=== PATIENT | female | born 1935 | race Caucasian/White ===

== ENCOUNTER 2016-12-03 22:10 | Inpatient (IN) | payer MEDICARE ==
[2016-12-03] MEDS ORDERED: IPRATROPIUM/ALBUTEROL 0.5-2.5 MG/3 ML AMPUL NEB ONE (22:58)
--- NOTE | 2016-12-03 22:58 | ER Document Report ---
ED Respiratory Problem - General Stated Complaint: DIFFICULTY BREATHING Time seen by provider: 22:58 Mode of Arrival: Stretcher Information source: Patient TRAVEL OUTSIDE OF THE [place] IN LAST 30 DAYS: No - HPI Patient complains to provider of: Chest pain, Short of breath Onset: Other - 2-3 days Duration: Worse/persistent Quality of pain: Achy Severity: Mild Pain Level: 2 Short of Breath: Mild Chest pain/discomfort: Tightness Cough: Productive Sputum amount: Small Sputum consistency: Mucoid Associated symptoms: Chest pain/discomfort, Cough, Extertional dyspnea Similar symptoms previously: Yes Recently seen / treated by doctor: No Notes: Patient is an 81-year-old female presenting to the emergency room complaining of difficulty breathing with dyspnea on exertion, productive cough and chest pain that's been going on for the past 2-3 days, she denies any nausea or vomiting, she reports a subjective fever - Related Data Allergies/Adverse Reactions: codeine [Codeine] Allergy (Mild, Verified 09/19/15 07:41) unknown aspirin [Aspirin] Allergy (Verified 09/19/15 07:41) Past Medical History - General Information source: Patient - Social History Smoking Status: Unknown if Ever Smoked Family History: Reviewed & Not Pertinent - Past Medical History Cardiac Medical History: Reports: Hx Heart Attack - 2yrs ago, Hx Hypercholesterolemia, Hx Hypertension - MEDICATION Denies: Hx Coronary Artery Disease Pulmonary Medical History: Reports: Hx Bronchitis Denies: Hx Asthma, Hx COPD, Hx Pneumonia Neurological Medical History: Reports: Hx Cerebrovascular Accident - 2yrs ago . Denies: Hx Seizures Endocrine Medical History: Reports: Hx Diabetes Mellitus Type 2 GI Medical History: Denies: Hx Hepatitis, Hx Hiatal Hernia, Hx Ulcer Musculoskeltal Medical History: Denies Hx Arthritis Psychiatric Medical History: Reports: Hx Depression Infectious Medical History: Denies: Hx Hepatitis Past Surgical History: Reports: Hx Hysterectomy. Denies: Hx Mastectomy, Hx Open Heart Surgery, Hx Pacemaker - Immunizations Hx Diphtheria, Pertussis, Tetanus Vaccination: Yes Hx Pneumococcal Vaccination: 10/22/13 Review of Systems - Review of Systems Constitutional: No symptoms reported EENT: No symptoms reported Cardiovascular: Chest pain Respiratory: Cough, Short of breath Gastrointestinal: No symptoms reported Genitourinary: No symptoms reported Female Genitourinary: No symptoms reported Musculoskeletal: No symptoms reported Skin: No symptoms reported Hematologic/Lymphatic: No symptoms reported Neurological/Psychological: No symptoms reported -: Yes All other systems reviewed and negative Physical Exam - Vital signs Vitals: Temp Resp Pulse Ox 99.3 F 27 H 93 12/03/16 22:28 12/03/16 22:28 12/03/16 22:28 Interpretation: Normal - General General appearance: Alert In distress: None - HEENT Head: Normocephalic, Atraumatic Eyes: Normal Conjunctiva: Normal Extraocular movements intact: Yes Eyelashes: Normal Pupils: PERRL - Respiratory Respiratory status: No respiratory distress Chest status: Nontender Breath sounds: Nonproductive cough Chest palpation: Normal - Cardiovascular Rhythm: Irregularly irregular Heart sounds: Normal auscultation Murmur: No - Abdominal Inspection: Normal Distension: No distension Bowel sounds: Normal Tenderness: Nontender Organomegaly: No organomegaly - Back Back: Normal, Nontender - Extremities General upper extremity: Normal inspection, Nontender, Normal color, Normal ROM , Normal temperature General lower extremity: Normal inspection, Nontender, Normal color, Normal ROM , Normal temperature, Normal weight bearing. No: Casandra's sign - Neurological Neuro grossly intact: Yes Cognition: Normal Orientation: AAOx4 Woodruff Coma Scale Eye Opening: Spontaneous Woodruff Coma Scale Verbal: Oriented Tony Coma Scale Motor: Obeys Commands Woodruff Coma Scale Total: 15 Speech: Normal - Psychological Associated symptoms: Normal affect, Normal mood - Skin Skin Temperature: Warm Skin Moisture: Dry Skin Color: Normal Course - Re-evaluation Re-evalutation: 12/04/16 04:06 Patient resting comfortably with stable vital signs, initial workup without acute findings, patient was discussed with primary care provider who agrees to admit as observation for further evaluation and treatment - Vital Signs Vital signs: Temp Pulse Resp BP Pulse Ox 99.3 F 22 H 169/71 H 94 12/03/16 22:28 12/04/16 02:01 12/04/16 02:01 12/04/16 02:01 - Laboratory Result Diagrams: 12/04/16 01:30 12/04/16 01:30 Laboratory results interpreted by me: 12/04/16 12/04/16 12/04/16 00:25 01:30 01:30 Hgb 11.2 L Hct 33.7 L MCH 26.7 L RDW 14.5 H Seg Neutrophils % 82.8 H Lymphocytes % 8.2 L Sodium 132.2 L Chloride 92 L Carbon Dioxide 34 H BUN 21 H Glucose 120 H NT-Pro-B Natriuret Pep Albumin 3.3 L Urine Protein >=500 H Urine Blood MODERATE H 12/04/16 01:30 Hgb Hct MCH RDW Seg Neutrophils % Lymphocytes % Sodium Chloride Carbon Dioxide BUN Glucose NT-Pro-B Natriuret Pep 1770 H Albumin Urine Protein Urine Blood - Diagnostic Test Radiology reviewed: Image reviewed, Reports reviewed - EKG Interpretation by Me Rate: Normal Rhythm: A.Fib - Transfer of Care Care transferred to following provider: Dr. Carrasquillo Discharge - Discharge Clinical Impression: Dyspnea on exertion Chest pain Qualifiers: Chest pain type: unspecified Qualified Code(s): R07.9 - Chest pain, unspecified Condition: Stable Disposition: ADMITTED OBSERVATION Admitting Provider: Arya Unit Admitted: Telemetry Referrals: JEANNETTE CARRASQUILLO MD [Primary Care Provider] - Follow up as needed
[2016-12-04 00:45] LABS: BILIRUBIN,URINE NEGATIVE (NEGATIVE); GLUCOSE, URINE NEGATIVE (NEGATIVE); KETONES,URINE NEGATIVE (NEGATIVE); LEUKOCYTE ESTERASE,URINE NEGATIVE (NEGATIVE); NITRITE,URINE NEGATIVE (NEGATIVE); PROTEIN,URINE >=500 mg/dL (NEGATIVE); UROBILINOGEN,URINE NEGATIVE mg/dL (<2.0)
[2016-12-04 00:46] LABS: APPEARANCE,URINE HAZY
[2016-12-04 00:47] LABS: URINE SPECIFIC GRAVITY 1.025
[2016-12-04 01:48] LABS: ABSOLUTE LYMPHOCYTES (AUTO) 0.6 10^3/uL (0.5-4.7); ABSOLUTE MONOCYTES (AUTO) 0.6 10^3/uL (0.1-1.4); BASOPHILS % (AUTO) 0.4 % (0-2); EOSINOPHILS % (AUTO) 0.1 % (0-6); HEMATOCRIT 33.7 % (36.0-47.0); HEMOGLOBIN 11.2 g/dL (12.0-15.5); HGB HCT DIFFERENCE -0.1; LYMPHOCYTES % (AUTO) 8.2 % (13-45); MEAN CORPUSCULAR HEMOGLOBIN 26.7 pg (27.0-33.4); MEAN CORPUSCULAR HGB CONC 33.2 g/dL (32.0-36.0); MEAN CORPUSCULAR VOLUME 80 fl (80-97); MONOCYTES % (AUTO) 8.5 % (3-13); RED CELL DISTRIBUTION WIDTH 14.5 % (11.5-14.0); SEGMENTED NEUTROPHILS % (AUTO) 82.8 % (42-78); WHITE BLOOD COUNT 7.2 10^3/uL (4.0-10.5)
[2016-12-04 02:09] LABS: ALANINE AMINOTRANSFERASE 23 U/L (9-52); ALBUMIN 3.3 g/dL (3.5-5.0); ALKALINE PHOSPHATASE 104 U/L (38-126); ANION GAP 6 (5-19); ASPARTATE AMINO TRANSFERASE 24 U/L (14-36); BILIRUBIN,TOTAL 0.7 mg/dL (0.2-1.3); BLOOD UREA NITROGEN 21 mg/dL (7-20); CALCIUM 8.7 mg/dL (8.4-10.2); CARBON DIOXIDE 34 mmol/L (22-30); CHLORIDE 92 mmol/L (98-107); CREATINE KINASE 93 U/L (30-135); CREATININE RESULT 0.83 mg/dL (0.52-1.25); GLUCOSE 120 mg/dL (75-110); POTASSIUM 3.8 mmol/L (3.6-5.0); SODIUM 132.2 mmol/L (137-145); TOTAL PROTEIN 6.6 g/dL (6.3-8.2)
[2016-12-04 02:21] LABS: CREATINE KINASE MB 1.93 ng/mL (<4.55)
[2016-12-04 02:34] LABS: TROPONIN I 0.054 ng/mL
--- NOTE | 2016-12-04 08:26 | EKG REPORT ---
SEVERITY:- ABNORMAL ECG - ATRIAL FIBRILLATION NONSPECIFIC T ABNORMALITIES, LATERAL LEADS : Confirmed by: Rajni Liu 04-Dec-2016 08:25:55
[2016-12-04] MEDS ORDERED: DEXTROSE 40% GEL 15 GM TUBE PO PRN (08:43)
[2016-12-04] MEDS ORDERED: DEXTROSE 50%-WATER SYRINGE 25 GM/50 ML DOSE IV PRN (08:43)
[2016-12-04] MEDS ORDERED: DEXTROSE 50%-WATER SYRINGE 12.5 GM/25 ML DOSE IV PRN (08:43)
[2016-12-04] MEDS ORDERED: DEXTROSE 40% GEL 15 GM TUBE X 2 PO PRN (08:43)
[2016-12-04] MEDS ORDERED: GLUCAGON,HUMAN RECOMB 1 MG INJ IM PRN (08:43)
--- NOTE | 2016-12-04 08:50 | Physician Advisory Note ---
Physician Advisor ProgressNote .: [facility] to the [facility], I have reviewed the medical record for this patient. Physician Advisor Statement: Possible documentation opportunities if attending agrees: 1. "CP/SOB, likely due to " 2. "hyponatremia, likely due to " 3. "anemia, chronic, likely due to " [nutritional Fe defic? chr blood loss Fe defic? B12 defic? folate defic? Anemia of Chronic Kidney Dz? ... ] Thanks for your help with documentation accuracy/specificity improvement! Rossi Montes De Oca MD [facility] Physician Advisor, Fellow of Hospital Medicine
[2016-12-04 08:53] LABS: CHOLESTEROL 107.04 mg/dL (0-200); CREATINE KINASE 117 U/L (30-135); Direct HDL 40 mg/dL (>40); TRIGLYCERIDES 77 mg/dL (<150)
[2016-12-04 09:04] LABS: DIRECT LDL 39 mg/dL (<100)
[2016-12-04 09:07] LABS: CREATINE KINASE MB 2.54 ng/mL (<4.55); TROPONIN I 0.056 ng/mL
[2016-12-04] MEDS ORDERED: RAMIPRIL 10 MG CAPSULE PO SCH (10:00)
[2016-12-04] MEDS ORDERED: BUSPIRONE HCL PO SCH (10:00)
[2016-12-04] MEDS ORDERED: (PENDING PHARMACY ID) (Insulin Glargine,Hum.Rec.Anlog [Toujeo Solostar] 40 UNIT) SQ SCH (10:00)
[2016-12-04] MEDS ORDERED: (PENDING PHARMACY ID) (Rivaroxaban [Xarelto] 1 TAB) PO SCH (10:00)
[2016-12-04] MEDS ORDERED: PAROXETINE HCL PO SCH (10:00)
[2016-12-04] MEDS ORDERED: MIRABEGRON PO SCH (10:00)
[2016-12-04] MEDS ORDERED: HYDROCHLOROTHIAZIDE 25 MG TABLET PO SCH (10:00)
[2016-12-04] MEDS ORDERED: DONEPEZIL HCL 5 MG TABLET PO SCH (10:00)
[2016-12-04] MEDS: DONEPEZIL HCL 5 MG TABLET PO SCH (10:27)
[2016-12-04] MEDS: METFORMIN HCL 850 MG TABLET PO SCH (10:27)
[2016-12-04] MEDS: PAROXETINE HCL 20 MG TABLET PO SCH (10:27)
[2016-12-04] MEDS: RAMIPRIL 10 MG CAPSULE PO SCH (10:29)
--- NOTE | 2016-12-04 13:48 | PDOC H&P ---
History of Present Illness Admission Date/PCP: 12/04/16 06:33 JEANNETTE NEIDA Patient complains of: Chest Pain, Shortness of breath, Cough, Fever History of Present Illness: RAJWINDER BOONE is a 81 year old female presented to ED via EMS service with complain of right sided chest pain. Patient described pain as intermittent sharp , lasted about 2-3 minutes per episode and not related to any particular event or rest. There is associated episodes of palpitation. No associated diaphoresis , nausea, or vomiting. Patient denied any significant relieving factor. There is reported chest congestion with minimally productive coughing and subjective fever over last 2-3 days. Her initial ED evaluation did revealed anemia, left shift in her differential cell count, Atrial fibrillation, elevated NT-ProBNP, indeterminate Troponin-I and electrolyte derangement. In view of her age, presentation and comorbidities she was advised hospitalization to observation bed for further evaluation and management. Past Medical History Cardiac Medical History: Reports: Atrial Fibrillation, Myocardial Infarction - 2yrs ago, Hyperlipidema, Hypertension - MEDICATION Denies: Coronary Artery Disease Pulmonary Medical History: Reports: Bronchitis Denies: Asthma, Chronic Obstructive Pulmonary Disease (COPD), Pneumonia Neurological Medical History: Denies: Seizures Endocrine Medical History: Reports: Diabetes Mellitus Type 2 GI Medical History: Denies: Hepatitis, Hiatal Hernia Musculoskeltal Medical History: Denies: Arthritis Psychiatric Medical History: Reports: Depression Hematology: Reports: Anemia Denies: None, Hemophilia, Sickle Cell Disease, Bleeding Tendencies, Heparin Induced Thrombocytopenia, Neutropenia, Other Past Surgical History Past Surgical History: Reports: Hysterectomy, Tonsillectomy Denies: Amputation, Mastectomy, Pacemaker Social History Smoking Status: Unknown if Ever Smoked Frequency of Alcohol Use: None Hx Recreational Drug Use: No Hx Prescription Drug Abuse: No - Advance Directive Resuscitation Status: Full Code Family History Family History: Reviewed & Not Pertinent Parental Family History Reviewed: Yes Children Family History Reviewed: Yes Sibling(s) Family History Reviewed.: Yes Medication/Allergy Home Medications: Simvastatin [Zocor 20 mg Tablet] 1 tab PO QHS 09/21/11 Hydrochlorothiazide 1 tab PO DAILY 04/21/13 Ramipril [Altace 10 mg Capsule] 1 cap PO DAILY 04/21/13 Donepezil HCl 1 tab PO DAILY 11/03/14 Alprazolam 1 tab PO BID PRN 11/29/15 Mirabegron [Myrbetriq] 1 tab PO DAILY 09/19/15 Buspirone HCl 1.5 tab PO TID 11/01/15 Insulin Glargine,Hum.rec.anlog [Elton Rodriguez] 40 unit SQ DAILY 11/01/15 Paroxetine HCl [Paxil] 2 tab PO DAILY 11/01/15 Metformin HCl [Metformin HCl] 1 tab PO DAILY 12/04/16 Rivaroxaban [Xarelto] 1 tab PO DAILY 12/04/16 Allergies/Adverse Reactions: codeine [Codeine] Allergy (Mild, Verified 12/04/16 04:13) unknown aspirin [Aspirin] Allergy (Verified 12/04/16 04:13) Review of Systems Constitutional: PRESENT: fatigue, fever(s), weakness. ABSENT: as per HPI, anorexia, chills, headache(s), night sweats, weight gain, weight loss, other Eyes: PRESENT: visual disturbances - long standing Ears: PRESENT: hearing changes - long standing Nose, Mouth, and Throat: ABSENT: as per HPI, headache(s), mouth pain, sore throat, vertigo, other Cardiovascular: PRESENT: chest pain. ABSENT: as per HPI, dyspnea on exertion, edema, orthropnea, palpitations, other Respiratory: PRESENT: cough, dyspnea, sputum - minimal with coughing. ABSENT: as per HPI, hemoptysis, other Gastrointestinal: ABSENT: as per HPI, abdominal pain, bloating, coffee ground emesis, constipation, diarrhea, dysphagia, heartburn, hematemesis, hematochezia , melena, nausea, vomiting, other Genitourinary: ABSENT: as per HPI, difficulty urinating, dysuria, hematuria, nocturia, other Musculoskeletal: PRESENT: deformity - due to arthritis Integumentary: ABSENT: as per HPI, diaphoresis, erythema, lesions, pruritus, rash, wounds, other Neurological: PRESENT: confusion, frequent falls, memory loss. ABSENT: as per HPI, abnormal gait, abnormal movements, abnormal speech, convulsions, dizziness , focal weakness, lack of coordination, numbness, paresthesias, restless legs, syncope, tingling, tremor(s), vertigo, weakness, other Psychiatric: ABSENT: as per HPI, anxiety, depression, hallucinations, homidical ideation, suicidal ideation, other Endocrine: PRESENT: flushing. ABSENT: as per HPI, cold intolerance, heat intolerance, menstrual abnormalities, polydipsia, polyphagia, polyuria, other Hematologic/Lymphatic: ABSENT: easy bleeding, easy bruising, lymphadenopathy Physical Exam Vital Signs: Temp Pulse Resp BP Pulse Ox 98.2 F 74 20 146/60 H 93 12/04/16 08:11 12/04/16 08:11 12/04/16 08:11 12/04/16 08:11 12/04/16 08:11 General appearance: PRESENT: no acute distress, cooperative, obese Head exam: PRESENT: atraumatic, normocephalic Eye exam: PRESENT: conjunctiva pink, EOMI, PERRLA. ABSENT: scleral icterus Ear exam: PRESENT: normal external ear exam Mouth exam: PRESENT: moist, tongue midline Throat exam: ABSENT: post pharyngeal erythema, tonsillar erythema, tonsillar exudate, tonsillogmegaly, other Neck exam: PRESENT: full ROM. ABSENT: carotid bruit, JVD, lymphadenopathy, thyromegaly Respiratory exam: PRESENT: decreased breath sounds - at lung bases Cardiovascular exam: PRESENT: irregular rhythm. ABSENT: bradycardia, clicks, diastolic murmur, gallop, RRR, rubs, +S1, +S2, systolic murmur, tachycardia, other Pulses: PRESENT: normal dorsalis pedis pul, +2 pedal pulses bilateral Vascular exam: PRESENT: normal capillary refill GI/Abdominal exam: PRESENT: normal bowel sounds, soft. ABSENT: distended, guarding, mass, organolmegaly, rebound, tenderness Extremities exam: PRESENT: full ROM, pedal edema - bilateral chronic stasis edema to above ankle level Musculoskeletal exam: PRESENT: deformity - due to multiple joints arthritis involvement Neurological exam: PRESENT: alert, awake, oriented to person, oriented to place , oriented to time, oriented to situation, CN II-XII grossly intact. ABSENT: motor sensory deficit Psychiatric exam: PRESENT: appropriate affect, normal mood. ABSENT: homicidal ideation, suicidal ideation Skin exam: PRESENT: dry, intact, warm. ABSENT: cyanosis, rash Results Laboratory Results: 12/04/16 08:27 Triglycerides 77 Cholesterol 107.04 LDL Cholesterol Direct 39 VLDL Cholesterol 15.0 HDL Cholesterol 40 12/04/16 12/04/16 08:27 08:27 Creatine Kinase 117 CK-MB (CK-2) 2.54 Troponin I 0.056 Impressions: Chest X-Ray 12/03/16 22:54 IMPRESSION: NO ACUTE RADIOGRAPHIC FINDING IN THE CHEST. Assessment & Plan - Diagnosis (1) Chest pain with high risk for cardiac etiology Is this a current diagnosis for this admission?: YesPlan: see admitting physician orders. (2) Chronic atrial fibrillation Is this a current diagnosis for this admission?: YesPlan: see admitting physician orders. (3) Acute bronchitis due to other specified organisms Is this a current diagnosis for this admission?: YesPlan: see admitting physician orders. (4) Electrolyte abnormality Is this a current diagnosis for this admission?: YesPlan: see admitting physician orders. (5) Anemia of chronic disease Is this a current diagnosis for this admission?: YesPlan: see admitting physician orders. (6) Diabetes mellitus type 2 in obese Is this a current diagnosis for this admission?: YesPlan: see admitting physician orders. (7) HTN (hypertension) Qualifiers: Hypertension type: essential hypertension Qualified Code(s): I10 - Essential (primary) hypertension Is this a current diagnosis for this admission?: YesPlan: see admitting physician orders. (8) HLD (hyperlipidemia) Qualifiers: Hyperlipidemia type: pure hypercholesterolemia Qualified Code(s): E78.00 - Pure hypercholesterolemia, unspecified; E78.0 - Pure hypercholesterolemia Is this a current diagnosis for this admission?: YesPlan: see admitting physician orders. (9) Old MD (myocardial infarction) Is this a current diagnosis for this admission?: YesPlan: see admitting physician orders. (10) Depression Qualifiers: Depression Type: major depressive disorder Active/Remission status: currently active Psychotic features: without psychotic features Is this a current diagnosis for this admission?: YesPlan: see admitting physician orders. - Time Time Spent: 50 to 70 Minutes Medications reviewed and adjusted accordingly: Yes Anticipated discharge: Home Within: Other - Inpatient Certification Based on my medical assessment, after consideration of the patient's comorbidities, presenting symptoms, or acuity I expect that the services needed warrant INPATIENT care.: Yes I certify that my determination is in accordance with my understanding of Medicare's requirements for reasonable and necessary INPATIENT services [42 CFR 412.3e].: Yes Medical Necessity: Need For IV Fluids, Need For Continuous Telemetry Monitoring , Need for IV Antibiotics, Risk of Diagnosis Which Will Require Inpatient Eval/ Care/Monitoring Post Hospital Care: D/C Ophthalmologist Retina Specialist Documentation - Plan Summary Plan Summary: see admitting physician orders.
[2016-12-04] MEDS ORDERED: CEFEPIME 1 GM/D5W RTU 1 GM/50 ML RTUPB IV ONE (14:30)
[2016-12-04] MEDS ORDERED: GUAIFENESIN 600 MG TABLET.SA PO ONE (15:00)
[2016-12-04] MEDS: BUSPIRONE HCL 10 MG TABLET PO SCH ×2 (16:09→21:58)
[2016-12-04] MEDS: RIVAROXABAN 10 MG TABLET PO SCH (16:15)
[2016-12-04 16:23] LABS: CREATINE KINASE 117 U/L (30-135)
[2016-12-04 16:37] LABS: CREATINE KINASE MB 2.64 ng/mL (<4.55); TROPONIN I 0.051 ng/mL
[2016-12-04] MEDS: SIMVASTATIN 10 MG TABLET PO SCH (21:58)
[2016-12-04] MEDS: GUAIFENESIN 600 MG TABLET.SA PO SCH (21:58)
[2016-12-04] MEDS: CEFEPIME 1 GM/D5W RTU 1 GM/50 ML RTUPB IV SCH (21:58)
[2016-12-04] MEDS ORDERED: SIMVASTATIN PO SCH (22:00)
[2016-12-04 22:26] LABS: CREATINE KINASE MB 3.06 ng/mL (<4.55); TROPONIN I 0.053 ng/mL
[2016-12-05] MEDS: BUSPIRONE HCL 10 MG TABLET PO SCH ×3 (05:44→22:35)
[2016-12-05 06:57] LABS: ABSOLUTE LYMPHOCYTES (AUTO) 0.7 10^3/uL (0.5-4.7); ABSOLUTE MONOCYTES (AUTO) 0.7 10^3/uL (0.1-1.4); ABSOLUTE NEUT (AUTO) 4.6 10^3/uL (1.7-8.2); BASOPHILS % (AUTO) 0.7 % (0-2); EOSINOPHILS % (AUTO) 0.3 % (0-6); HEMATOCRIT 34.3 % (36.0-47.0); HEMOGLOBIN 11.5 g/dL (12.0-15.5); HGB HCT DIFFERENCE 0.2; LYMPHOCYTES % (AUTO) 11.8 % (13-45); MEAN CORPUSCULAR HEMOGLOBIN 26.9 pg (27.0-33.4); MEAN CORPUSCULAR HGB CONC 33.6 g/dL (32.0-36.0); MEAN CORPUSCULAR VOLUME 80 fl (80-97); RED BLOOD COUNT 4.29 10^6/uL (3.72-5.28); RED CELL DISTRIBUTION WIDTH 14.3 % (11.5-14.0); SEGMENTED NEUTROPHILS % (AUTO) 76.2 % (42-78); WHITE BLOOD COUNT 6.1 10^3/uL (4.0-10.5)
[2016-12-05 07:11] LABS: ANION GAP 7 (5-19); BLOOD UREA NITROGEN 18 mg/dL (7-20); CALCIUM 8.9 mg/dL (8.4-10.2); CARBON DIOXIDE 33 mmol/L (22-30); CHLORIDE 91 mmol/L (98-107); CREATININE RESULT 0.71 mg/dL (0.52-1.25); GLUCOSE 85 mg/dL (75-110); POTASSIUM 3.8 mmol/L (3.6-5.0); SODIUM 131.1 mmol/L (137-145)
--- NOTE | 2016-12-05 07:31 | PDOC PROGRESS REPORT ---
Subjective Progress Note for:: 12/05/16 Subjective:: Patient denied chest pain presently. Improving breathing. Less coughing. No fever or chills. No nausea, vomiting, or abdominal pain. No diarrhea. Remain on IV cefepime coverage. Physical Exam Vital Signs: Temp Pulse Resp BP Pulse Ox 97.6 F 75 20 136/67 H 99 12/04/16 23:03 12/05/16 02:00 12/04/16 23:03 12/04/16 23:03 12/04/16 23:03 Intake & Output 12/04/16 12/05/16 12/06/16 06:59 06:59 06:59 Intake Total 1028 Output Total 300 Balance 728 General appearance: PRESENT: no acute distress, cooperative, obese Head exam: PRESENT: atraumatic, normocephalic Eye exam: PRESENT: conjunctiva pink, EOMI, PERRLA. ABSENT: scleral icterus Respiratory exam: ABSENT: accessory muscle use, chest wall tenderness, clear to auscultation merna, crackles, decreased breath sounds, prolonged expiratory phas, rales, retraction, rhonchi, stridor, symmetrical, tachypnea, unlabored, wheezes , other Cardiovascular exam: PRESENT: RRR. ABSENT: diastolic murmur, rubs, systolic murmur GI/Abdominal exam: PRESENT: normal bowel sounds, soft. 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 ABSENT: motor sensory deficit Psychiatric exam: PRESENT: appropriate affect, normal mood. ABSENT: homicidal ideation, suicidal ideation Skin exam: PRESENT: dry, intact, warm. ABSENT: cyanosis, rash Results Laboratory Results: 12/05/16 06:02 12/05/16 06:02 12/04/16 12/04/16 12/05/16 15:35 15:35 06:02 WBC 6.1 RBC 4.29 Hgb 11.5 L Hct 34.3 L MCV 80 MCH 26.9 L MCHC 33.6 RDW 14.3 H Plt Count 184 Seg Neutrophils % 76.2 Lymphocytes % 11.8 L Monocytes % 11.0 Eosinophils % 0.3 Basophils % 0.7 Absolute Neutrophils 4.6 Absolute Lymphocytes 0.7 Absolute Monocytes 0.7 Absolute Eosinophils 0.0 Absolute Basophils 0.0 Retic Count (auto) 1.19 Absolute Retic 0.048 Sodium Potassium Chloride Carbon Dioxide Anion Gap BUN Creatinine Est GFR ( Amer) Est GFR (Non-Af Amer) Glucose Calcium Iron 15 L TIBC 270 % Saturation 6 Ferritin 102.00 Vitamin B12 665.0 Folate 17.70 12/05/16 06:02 WBC RBC Hgb Hct MCV MCH MCHC RDW Plt Count Seg Neutrophils % Lymphocytes % Monocytes % Eosinophils % Basophils % Absolute Neutrophils Absolute Lymphocytes Absolute Monocytes Absolute Eosinophils Absolute Basophils Retic Count (auto) Absolute Retic Sodium 131.1 L Potassium 3.8 Chloride 91 L Carbon Dioxide 33 H Anion Gap 7 BUN 18 Creatinine 0.71 Est GFR ( Amer) > 60 Est GFR (Non-Af Amer) > 60 Glucose 85 Calcium 8.9 Iron TIBC % Saturation Ferritin Vitamin B12 Folate 12/04/16 12/04/16 12/04/16 15:35 15:35 21:45 Creatine Kinase 117 119 CK-MB (CK-2) 2.64 Troponin I 0.051 12/04/16 21:45 Creatine Kinase CK-MB (CK-2) 3.06 Troponin I 0.053 Impressions: Chest X-Ray 12/03/16 22:54 IMPRESSION: NO ACUTE RADIOGRAPHIC FINDING IN THE CHEST. Assessment & Plan - Diagnosis (1) Chest pain with high risk for cardiac etiology Is this a current diagnosis for this admission?: YesPlan: See attending physician orders. I will consider pharmacologic stress test evaluation before discharge. (2) Chronic atrial fibrillation Is this a current diagnosis for this admission?: YesPlan: See attending physician orders. (3) Acute bronchitis due to other specified organisms Is this a current diagnosis for this admission?: YesPlan: see attending physician orders. Continue IV Cefepime coverage. (4) Electrolyte abnormality Is this a current diagnosis for this admission?: Yes (5) Anemia of chronic disease Is this a current diagnosis for this admission?: Yes (6) Diabetes mellitus type 2 in obese Is this a current diagnosis for this admission?: YesPlan: see attending physician orders. (7) HTN (hypertension) Qualifiers: Hypertension type: essential hypertension Qualified Code(s): I10 - Essential (primary) hypertension Is this a current diagnosis for this admission?: YesPlan: see attending physician orders. (8) HLD (hyperlipidemia) Qualifiers: Hyperlipidemia type: pure hypercholesterolemia Qualified Code(s): E78.00 - Pure hypercholesterolemia, unspecified; E78.0 - Pure hypercholesterolemia Is this a current diagnosis for this admission?: YesPlan: see attending physician orders. (9) Old IN (myocardial infarction) Is this a current diagnosis for this admission?: YesPlan: see attending physician orders. Consider pharmacologic stress testing prior to discharge in view of her presenting symptoms, comorbidities and age. (10) Mixed anxiety and depressive disorder Is this a current diagnosis for this admission?: YesPlan: Maintain on current medication management. - Time Time Spent with patient: 25-34 minutes Medications reviewed and adjusted accordingly: Yes Anticipated discharge: Home with Homehealth Within: Other - Inpatient Certification Medical Necessity: Need For IV Fluids, Need For Continuous Telemetry Monitoring , Need for IV Antibiotics, Risk of Complication if Not Cared For in Hospital Post Hospital Care: D/C Ge[employer] Field Assistant Documentation - Plan Summary Plan Summary: see attending physician orders.
[2016-12-05] MEDS: CEFEPIME 1 GM/D5W RTU 1 GM/50 ML RTUPB IV SCH ×2 (09:05→22:35)
[2016-12-05] MEDS: DONEPEZIL HCL 5 MG TABLET PO SCH (09:06)
[2016-12-05] MEDS: RAMIPRIL 10 MG CAPSULE PO SCH (09:06)
[2016-12-05] MEDS: GUAIFENESIN 600 MG TABLET.SA PO SCH ×2 (09:07→22:35)
[2016-12-05] MEDS: PAROXETINE HCL 20 MG TABLET PO SCH (09:07)
[2016-12-05] MEDS: METFORMIN HCL 850 MG TABLET PO SCH (09:07)
[2016-12-05] MEDS ORDERED: NORMAL SALINE FOR INHALATION 5 ML VIAL.NEB ONE (09:47)
--- NOTE | 2016-12-05 10:40 | Physician Advisory Note ---
Physician Advisor ProgressNote .: Pursuant to the plan for [facility], I have reviewed the medical record for this patient. Physician Advisor Statement: Nice job documenting the "chronic Afib". Possible documentation opportunities if attending agrees: 1. Medical necessity: need to "paint the picture" for the non-MD loss prevention research engineer, in each chart, for each day. See add'l points to make in this case - under "Status " below. - "This pt doesn't use O2 at home but needing it here to keep sats >___%, ... " - this needs to be explicit. Otherwise, an loss prevention research engineer (who won't be spending time digging for supporting info) will see nl VS & "breathing improved", lung exam with no abnormal findings listed 2/14 AM, & say, well, pt doesn't need to still be in the hospital! - Potential supporting points are included under "Status" at end of PA notes, which carry MUCH more weight if attending documents them. - Documenting specific ways in which pt is not back to baseline is VERY helpful in supporting reasoning for keeping pt in hospital! - Unfortunately, including the generic phrases like "needs IVF & IV abx & tele " at end of notes is not sufficient - they are useful prompts for attending to document such info, but attending has to indicate how/why they apply to this particular pt for them to support Inpt status. Ex: "This pt needs IV abx with close monitoring for response because ___ ____" [High risk for further decompensation due to __? Failing outpt tx?, ...] "Strong risk for Acute Respiratory Failure developing given " [new acute hypoxemia? underlying lung dz?, ...] "Pt has underlying CAD so hypoxemia and tachycardia increase risks for developing AMI acutely..." 2. "CP, likely due to " ("acute ischemic heart dz"? "Ac bronchitis"?) - Need actual possible dx listed: "cardiac etiology" is not sufficient for coding. 3. "Hyponatremia, likely due to " ("Electrolyte derangement" isn't sufficiently specific to capture hyponatremia.) 4. "Anemia of chronic Fe deficiency, [nutritional? or chronic blood loss ?]" - if anemia of chronic dz as well, please document what the underlying causative dz is, if at all possible (CKD? Hypothyroidism? Specific hem-onc dx ? ...) As always, if concerned about any unstable VS or abnormal labs, please comment on them & note what doing about them, & please document each day the potential clinical problems you are concerned could occur if pt not kept in hospital for tx at this time. Discussion: 81yo female w/ chronic co-morbidities including Afib, CAD/CA, HTN, DM-2, depression, anemia - presented 12/03 to ED w/SOB, difficulty breathing, CP, subjective fevers, productive cough - &, per ED nurse, BLE ankle edema, inability to sleep flat in bed. (+) T98.2, HR74, R20, BP 146/60, sat 93% - & ED nurse documented "Pt denies wearing O2 at home & is requiring it in the ED. Pt is SOB on assessment & diaphoretic w/nasal flaring noted." (+)wheezes, coarseness, tachypnea in triage. WBC 7.2 with Lt shift. Hgb 11.2, Na 132.2, bicarb 34 (baseline 26-28 in Oct 2015), BUN 21, Cr 0.83, BNP 1770 (baseline was 1220 in Oct 2015), trop I 0.054 (was 0.018 in 2013). The AM of 12/04, FSBS only 68 AC bkft. Attending ordered O2, IV cefepime, sputum cx, expectorant q12h, anemia eval labs + hemoccult, cardiac enzymes, f/u labs. Status: This pt was initially brought in for Outpt Obs for CP/SOB/acute bronchitis/ hyponatremia/hypoxemia/indeterminate cardiac enzymes, elevated BNP suggestive of CHF yet elevated BUN/Cr ratio suggestive of intravascular volume depletion. However, this elderly pt was too sick to respond quickly to appropriate tx, still requiring O2 support 12/04 despite having no underlying lung dz, still has significant hyponatremia (being addressed by ), is at higher risk for acute cardiac decompensation given underlying DM, HTN, CAD, Afib, anemia, with superimposed hypoxemia & infxn, .... She had hypoglycemia, which is concerning in an elderly pt for risk for falls, & especially in setting of acute infxn. On 12/04 AM, decision appears appropriately made for Inpt status given ongoing acute need for O2 to keep sat low 90s, vitals instability including tachycardia to 101, tachypnea to 23, & BP as high as 203/94, evidence hypoglycemia, ..., pt needing continued inpatient hospital care medically reasonable & necessary to protect her health, safety, & medical condition. - O2 sat 93% on 3L O2 on 12/03 PM at 22:28, for a P/F ratio of 213, equivalent to a RA pO2 of <<50. - O2 sat 94% on 2L O2 on 12/04 AM at 04:55, for a P/F ratio of 261, equivalent to a RA pO2 of <56. - O2 sat 93% on 2L O2 on 12/04 AM at 08:11, for a P/F ratio of 243, equivalent to a RA pO2 of 51. On 12/04 at 22:00, pt still with wheezes & rhonchi per nursing note. On 12/05, Na still worse at 131.1, bicarb still not back to baseline, Fe 15, TIBC 270, B12/folate WNL, cardiac enzyme trends - tho' abnormal - were flat. Attending recommends stress test to better eval heart before d/c because , but pt not yet sufficiently stabilized for this based on . Thanks for your help with documentation accuracy/specificity improvement! Rossi Montes De Oca MD ON LICENSE OF [facility] Physician Advisor, Fellow of Hospital Medicine
[2016-12-05] MEDS: RIVAROXABAN 10 MG TABLET PO SCH (17:10)
[2016-12-05] MEDS: SIMVASTATIN 10 MG TABLET PO SCH (22:35)
[2016-12-06] MEDS: BUSPIRONE HCL 10 MG TABLET PO SCH ×3 (05:17→21:16)
--- NOTE | 2016-12-06 07:41 | PDOC PROGRESS REPORT ---
Subjective Progress Note for:: 12/06/16 Subjective:: No chest pain or difficulty with breathing. No fever or chills. Improved productive coughing. No nausea, vomiting, or abdominal pain. No diarrhea. Remain on IV cefepime coverage. Patient is currently not on IV fluid due to her presenting elevated NT-Pro BNP level, edema, and her elevated Troponin I level. Physical Exam Vital Signs: Temp Pulse Resp BP Pulse Ox 98.3 F 72 20 151/85 H 91 L 12/06/16 03:41 12/06/16 03:41 12/06/16 03:41 12/06/16 03:41 12/06/16 03:41 Intake & Output 12/05/16 12/06/16 12/07/16 06:59 06:59 06:59 Intake Total 1028 1560 Output Total 300 1800 Balance 728 -240 Weight 100.5 kg Physical Exam: General appearance: PRESENT: no acute distress, cooperative, obese Head exam: PRESENT: atraumatic, normocephalic Eye exam: PRESENT: conjunctiva pink, EOMI, PERRLA. ABSENT: scleral icterus Respiratory exam: ABSENT: accessory muscle use, chest wall tenderness, clear to auscultation merna, crackles, decreased breath sounds, prolonged expiratory phas, rales, retraction, rhonchi, stridor, symmetrical, tachypnea, unlabored, wheezes , other Cardiovascular exam: PRESENT: RRR. ABSENT: diastolic murmur, rubs, systolic murmur GI/Abdominal exam: PRESENT: normal bowel sounds, soft. 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 ABSENT: motor sensory deficit Psychiatric exam: PRESENT: appropriate affect, normal mood. ABSENT: homicidal ideation, suicidal ideation Skin exam: PRESENT: dry, intact, warm. ABSENT: cyanosis, rash Results Laboratory Results: 12/05/16 06:02 12/05/16 06:02 12/04/16 18:15 Sputum Gram Stain - Final 12/04/16 18:15 Sputum Sputum Culture - Final NORMAL OMKAR 02/12/04/16 12/04/16 15:35 15:35 21:45 Creatine Kinase 117 119 CK-MB (CK-2) 2.64 Troponin I 0.051 12/04/16 21:45 Creatine Kinase CK-MB (CK-2) 3.06 Troponin I 0.053 Impressions: Chest X-Ray 12/03/16 22:54 IMPRESSION: NO ACUTE RADIOGRAPHIC FINDING IN THE CHEST. Assessment & Plan - Diagnosis (1) Chest pain with high risk for cardiac etiology Is this a current diagnosis for this admission?: YesPlan: See attending physician orders. I will request for pharmacologic stress test evaluation. (2) Chronic atrial fibrillation Is this a current diagnosis for this admission?: YesPlan: See attending physician orders. Continue to hold IV fluid due to her presenting elevated NT-Pro BNP level, edema, and her elevated Troponin I level. (3) Acute bronchitis due to other specified organisms Is this a current diagnosis for this admission?: YesPlan: see attending physician orders. D/C IV Cefepime coverage. Start on Cefuroxime 500mg p.o bid. (4) Electrolyte abnormality Is this a current diagnosis for this admission?: YesPlan: see admitting physician orders. Obtain BMP. (5) Anemia of chronic disease Is this a current diagnosis for this admission?: YesPlan: see admitting physician orders. Follow up on request for stool guaiac test. (6) Diabetes mellitus type 2 in obese Is this a current diagnosis for this admission?: YesPlan: see attending physician orders. (7) HTN (hypertension) Qualifiers: Hypertension type: essential hypertension Qualified Code(s): I10 - Essential (primary) hypertension Is this a current diagnosis for this admission?: YesPlan: see attending physician orders. (8) HLD (hyperlipidemia) Qualifiers: Hyperlipidemia type: pure hypercholesterolemia Qualified Code(s): E78.00 - Pure hypercholesterolemia, unspecified; E78.0 - Pure hypercholesterolemia Is this a current diagnosis for this admission?: YesPlan: see attending physician orders. (9) Old OK (myocardial infarction) Is this a current diagnosis for this admission?: YesPlan: see attending physician orders. I will request for pharmacologic stress testing today in view of her presenting symptoms, comorbidities and age. (10) Mixed anxiety and depressive disorder Is this a current diagnosis for this admission?: YesPlan: Maintain on current medication management. - Time Time Spent with patient: 25-34 minutes Medications reviewed and adjusted accordingly: Yes Anticipated discharge: Home with Homehealth - Inpatient Certification Medical Necessity: Need For Continuous Telemetry Monitoring, Need for IV Antibiotics, Risk of Complication if Not Cared For in Hospital Post Hospital Care: D/C Tortilla Maker Documentation - Plan Summary Plan Summary: see attending physician orders.
[2016-12-06 08:30] LABS: ABSOLUTE LYMPHOCYTES (AUTO) 0.9 10^3/uL (0.5-4.7); ABSOLUTE MONOCYTES (AUTO) 0.5 10^3/uL (0.1-1.4); ABSOLUTE NEUT (AUTO) 4.2 10^3/uL (1.7-8.2); BASOPHILS % (AUTO) 0.6 % (0-2); EOSINOPHILS % (AUTO) 0.6 % (0-6); HEMATOCRIT 34.5 % (36.0-47.0); HEMOGLOBIN 11.4 g/dL (12.0-15.5); HGB HCT DIFFERENCE -0.3; LYMPHOCYTES % (AUTO) 15.8 % (13-45); MEAN CORPUSCULAR HEMOGLOBIN 26.4 pg (27.0-33.4); MEAN CORPUSCULAR VOLUME 80 fl (80-97); MONOCYTES % (AUTO) 8.2 % (3-13); RED BLOOD COUNT 4.31 10^6/uL (3.72-5.28); RED CELL DISTRIBUTION WIDTH 14.3 % (11.5-14.0); SEGMENTED NEUTROPHILS % (AUTO) 74.8 % (42-78); WHITE BLOOD COUNT 5.6 10^3/uL (4.0-10.5)
[2016-12-06 08:54] LABS: ANION GAP 8 (5-19); BLOOD UREA NITROGEN 19 mg/dL (7-20); CALCIUM 9.1 mg/dL (8.4-10.2); CARBON DIOXIDE 34 mmol/L (22-30); CHLORIDE 90 mmol/L (98-107); CREATININE RESULT 0.64 mg/dL (0.52-1.25); GLUCOSE 112 mg/dL (75-110); POTASSIUM 4.1 mmol/L (3.6-5.0); SODIUM 131.8 mmol/L (137-145)
[2016-12-06] MEDS ORDERED: ALPRAZOLAM 0.25 MG TABLET PO PRN (08:56)
[2016-12-06] MEDS: DONEPEZIL HCL 5 MG TABLET PO SCH (09:24)
[2016-12-06] MEDS: GUAIFENESIN 600 MG TABLET.SA PO SCH ×2 (09:25→21:17)
[2016-12-06] MEDS: PAROXETINE HCL 20 MG TABLET PO SCH (09:25)
[2016-12-06] MEDS: RAMIPRIL 10 MG CAPSULE PO SCH (09:25)
[2016-12-06] MEDS: METFORMIN HCL 850 MG TABLET PO SCH (09:25)
[2016-12-06] MEDS ORDERED: PAROXETINE HCL 20 MG TABLET PO SCH (10:00)
[2016-12-06] MEDS ORDERED: NYSTATIN TOPICAL POWDER 15 GM TOP SCH (10:00)
[2016-12-06] MEDS ORDERED: (PENDING PHARMACY ID) (Buspirone Hcl [Buspar 15 Mg Tablet] 7.5 MG) PO SCH (10:00)
[2016-12-06] MEDS ORDERED: HYDROCHLOROTHIAZIDE 25 MG TABLET PO SCH (10:00)
[2016-12-06] MEDS ORDERED: DONEPEZIL HCL 5 MG TABLET PO SCH (10:00)
[2016-12-06] MEDS ORDERED: INSULIN GLARGINE HUM REC ANLOG 40 UNIT SQ SCH (10:00)
[2016-12-06] MEDS ORDERED: RAMIPRIL 10 MG CAPSULE PO SCH (10:00)
[2016-12-06] MEDS ORDERED: (PENDING PHARMACY ID) (Mirabegron [Myrbetriq] 50 MG) PO SCH (10:00)
[2016-12-06] MEDS ORDERED: (PENDING PHARMACY ID) (Ketoconazole [Ketoconazole] 1 APPLIC) TOP SCH (10:00)
[2016-12-06] MEDS ORDERED: METFORMIN HCL 850 MG TABLET PO SCH (10:00)
[2016-12-06] MEDS: CEFUROXIME 500 MG TABLET PO SCH ×2 (13:56→21:16)
[2016-12-06] MEDS: ALPRAZOLAM 0.25 MG TABLET PO PRN (13:57)
[2016-12-06] MEDS: RIVAROXABAN 10 MG TABLET PO SCH (18:40)
[2016-12-06] MEDS: SIMVASTATIN 10 MG TABLET PO SCH (21:16)
[2016-12-06] MEDS ORDERED: TRAZODONE HCL 50 MG TABLET PO SCH (22:00)
[2016-12-07] MEDS: BUSPIRONE HCL 10 MG TABLET PO SCH ×3 (05:40→21:12)
[2016-12-07] MEDS: PAROXETINE HCL 20 MG TABLET PO SCH (13:06)
[2016-12-07] MEDS: GUAIFENESIN 600 MG TABLET.SA PO SCH ×2 (13:06→21:12)
[2016-12-07] MEDS: RAMIPRIL 10 MG CAPSULE PO SCH (13:06)
[2016-12-07] MEDS: METFORMIN HCL 850 MG TABLET PO SCH (13:07)
[2016-12-07] MEDS: CEFUROXIME 500 MG TABLET PO SCH ×2 (13:07→21:12)
[2016-12-07] MEDS: DONEPEZIL HCL 5 MG TABLET PO SCH (13:07)
[2016-12-07] MEDS: RIVAROXABAN 10 MG TABLET PO SCH (16:43)
[2016-12-07] MEDS: INSULIN LISPRO 100 UNIT/ML 3 ML VIAL SUBCUT PRN ×2 (16:44→21:20)
--- NOTE | 2016-12-07 19:40 | PDOC PROGRESS REPORT ---
Subjective Progress Note for:: 12/07/16 Subjective:: Patient's scheduled pharmacologic stress test was cancelled due to reported wheezing at the time of the test by Dr. Merida, castings drafter. Patient denied any chest pain or difficulty with breathing at the time of my consultation this evening. No fever or chills. No nausea, vomiting, or abdominal pain. No diarrhea. No fever or chills. Physical Exam Vital Signs: Temp Pulse Resp BP Pulse Ox 97.7 F 86 20 169/85 H 96 12/07/16 14:00 12/07/16 14:00 12/07/16 14:00 12/07/16 14:00 12/07/16 14:00 Intake & Output 12/06/16 12/07/16 12/08/16 06:59 06:59 06:59 Intake Total 1560 1770 240 Output Total 1800 900 Balance -240 870 240 Weight 100.5 kg 93.6 kg Physical Exam: General appearance: PRESENT: no acute distress, cooperative, obese Head exam: PRESENT: atraumatic, normocephalic Eye exam: PRESENT: conjunctiva pink, EOMI, PERRLA. ABSENT: scleral icterus Respiratory exam: ABSENT: accessory muscle use, chest wall tenderness, clear to auscultation merna, crackles, decreased breath sounds, prolonged expiratory phas, rales, retraction, rhonchi, stridor, symmetrical, tachypnea, unlabored, wheezes , other Cardiovascular exam: PRESENT: RRR. ABSENT: diastolic murmur, rubs, systolic murmur GI/Abdominal exam: PRESENT: normal bowel sounds, soft. 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 ABSENT: motor sensory deficit Psychiatric exam: PRESENT: appropriate affect, normal mood. ABSENT: homicidal ideation, suicidal ideation Skin exam: PRESENT: dry, intact, warm. ABSENT: cyanosis, rash Results Laboratory Results: 12/06/16 08:07 12/06/16 08:07 12/04/16 12/04/16 12/04/16 15:35 15:35 21:45 Creatine Kinase 117 119 CK-MB (CK-2) 2.64 Troponin I 0.051 NT-Pro-B Natriuret Pep 12/04/16 12/06/16 21:45 08:07 Creatine Kinase CK-MB (CK-2) 3.06 Troponin I 0.053 NT-Pro-B Natriuret Pep 1270 H Impressions: Chest X-Ray 12/03/16 22:54 IMPRESSION: NO ACUTE RADIOGRAPHIC FINDING IN THE CHEST. Assessment & Plan - Diagnosis (1) Chest pain with high risk for cardiac etiology Is this a current diagnosis for this admission?: YesPlan: See attending physician orders. We will arrange for outpatient pharmacologic stress test evaluation upon discharge when her lung status is much better. (2) Chronic atrial fibrillation Is this a current diagnosis for this admission?: YesPlan: See attending physician orders. (3) Acute bronchitis due to other specified organisms Is this a current diagnosis for this admission?: YesPlan: see attending physician orders. Maintain on Cefuroxime coverage. (4) Electrolyte abnormality Is this a current diagnosis for this admission?: YesPlan: see admitting physician orders. (5) Anemia of chronic disease Is this a current diagnosis for this admission?: Yes (6) Diabetes mellitus type 2 in obese Is this a current diagnosis for this admission?: YesPlan: see attending physician orders. (7) HTN (hypertension) Qualifiers: Hypertension type: essential hypertension Qualified Code(s): I10 - Essential (primary) hypertension Is this a current diagnosis for this admission?: YesPlan: see attending physician orders. (8) HLD (hyperlipidemia) Qualifiers: Hyperlipidemia type: pure hypercholesterolemia Qualified Code(s): E78.00 - Pure hypercholesterolemia, unspecified; E78.0 - Pure hypercholesterolemia Is this a current diagnosis for this admission?: YesPlan: see attending physician orders. (9) Old [place] (myocardial infarction) Is this a current diagnosis for this admission?: YesPlan: see attending physician orders. (10) Mixed anxiety and depressive disorder Is this a current diagnosis for this admission?: YesPlan: Maintain on current medication management. - Time Time Spent with patient: 25-34 minutes Medications reviewed and adjusted accordingly: Yes Anticipated discharge: Home with Homehealth Within: within 48 hours - Inpatient Certification Based on my medical assessment, after consideration of the patient's comorbidities, presenting symptoms, or acuity I expect that the services needed warrant INPATIENT care.: Yes I certify that my determination is in accordance with my understanding of Medicare's requirements for reasonable and necessary INPATIENT services [42 CFR 412.3e].: Yes Medical Necessity: Need For Continuous Telemetry Monitoring, Risk of Diagnosis Which Will Require Inpatient Eval/Care/Monitoring Post Hospital Care: D/C Net Washer Documentation - Plan Summary Plan Summary: see attending physician orders.
[2016-12-07] MEDS: SIMVASTATIN 10 MG TABLET PO SCH (21:12)
[2016-12-08] MEDS: BUSPIRONE HCL 10 MG TABLET PO SCH ×3 (05:10→21:44)
[2016-12-08] MEDS: INSULIN LISPRO 100 UNIT/ML 3 ML VIAL SUBCUT PRN ×3 (08:26→22:06)
[2016-12-08] MEDS ORDERED: IPRATROPIUM/ALBUTEROL 120 PUFF/4 GM MDI IH PRN (08:37)
[2016-12-08] MEDS: RAMIPRIL 10 MG CAPSULE PO SCH (09:47)
[2016-12-08] MEDS: METFORMIN HCL 850 MG TABLET PO SCH (09:47)
[2016-12-08] MEDS: CEFUROXIME 500 MG TABLET PO SCH ×2 (09:47→21:43)
[2016-12-08] MEDS: PAROXETINE HCL 20 MG TABLET PO SCH (09:47)
[2016-12-08] MEDS: GUAIFENESIN 600 MG TABLET.SA PO SCH ×2 (09:47→21:43)
[2016-12-08] MEDS: DONEPEZIL HCL 5 MG TABLET PO SCH (09:47)
[2016-12-08] MEDS: BUDESONIDE/FORMOTEROL 160-4.5 MCG 60 PUFF/6 GM MDI IH SCH ×2 (10:33→21:44)
--- NOTE | 2016-12-08 15:57 | PDOC PROGRESS REPORT ---
Subjective Progress Note for:: 12/08/16 Subjective:: Patient mixed her scheduled pharmacologic stress test this morning due to her eating served breakfast. Patient denied any chest pain or difficulty with breathing. She did admit to intermittent wheezing, particularly after coughing spells. No fever or chills. No nausea, vomiting, or abdominal pain. No diarrhea. No fever or chills. Physical Exam Vital Signs: Temp Pulse Resp BP Pulse Ox 98.3 F 71 18 158/88 H 100 12/08/16 10:54 12/08/16 10:54 12/08/16 10:54 12/08/16 10:54 12/08/16 10:54 Intake & Output 12/07/16 12/08/16 12/09/16 06:59 06:59 06:59 Intake Total 1770 500 480 Output Total 900 Balance 870 500 480 Weight 93.6 kg Physical Exam: General appearance: PRESENT: no acute distress, cooperative, obese Head exam: PRESENT: atraumatic, normocephalic Eye exam: PRESENT: conjunctiva pink, EOMI, PERRLA. ABSENT: scleral icterus Respiratory exam: ABSENT: accessory muscle use, chest wall tenderness, clear to auscultation merna, crackles, decreased breath sounds, prolonged expiratory phas, rales, retraction, rhonchi, stridor, symmetrical, tachypnea, unlabored, wheezes , other Cardiovascular exam: PRESENT: RRR. ABSENT: diastolic murmur, rubs, systolic murmur GI/Abdominal exam: PRESENT: normal bowel sounds, soft. 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 ABSENT: motor sensory deficit Psychiatric exam: PRESENT: appropriate affect, normal mood. ABSENT: homicidal ideation, suicidal ideation Skin exam: PRESENT: dry, intact, warm. ABSENT: cyanosis, rash Results Laboratory Results: 12/06/16 08:07 12/06/16 08:07 12/04/16 12/04/16 12/04/16 15:35 15:35 21:45 Creatine Kinase 117 119 CK-MB (CK-2) 2.64 Troponin I 0.051 NT-Pro-B Natriuret Pep 12/04/16 12/06/16 21:45 08:07 Creatine Kinase CK-MB (CK-2) 3.06 Troponin I 0.053 NT-Pro-B Natriuret Pep 1270 H Impressions: Chest X-Ray 12/03/16 22:54 IMPRESSION: NO ACUTE RADIOGRAPHIC FINDING IN THE CHEST. Assessment & Plan - Diagnosis (1) Chest pain with high risk for cardiac etiology Is this a current diagnosis for this admission?: YesPlan: We will arrange for pharmacologic stress test evaluation before discharge in view of her with improvement in her lung status. (2) Chronic atrial fibrillation Is this a current diagnosis for this admission?: YesPlan: Maitain on current medication management. See attending physician orders. (3) Acute bronchitis due to other specified organisms Is this a current diagnosis for this admission?: YesPlan: Maintain on Cefuroxime coverage. In view of her significant social history of prior cigarette smoking possibility of COPD with brionchitis is entertained and she will be stated on Symbicort and Combivent inhaler therapy. (4) Electrolyte abnormality Is this a current diagnosis for this admission?: Yes (5) Anemia of chronic disease Is this a current diagnosis for this admission?: YesPlan: Maintain on current medication management. See attending physician orders.. Her recent stool guaiac test is negative. (6) Diabetes mellitus type 2 in obese Is this a current diagnosis for this admission?: YesPlan: Maintain on current medication management. See attending physician orders. (7) HTN (hypertension) Qualifiers: Hypertension type: essential hypertension Qualified Code(s): I10 - Essential (primary) hypertension Is this a current diagnosis for this admission?: YesPlan: Maintain on current medication management. See attending physician orders. (8) HLD (hyperlipidemia) Qualifiers: Hyperlipidemia type: pure hypercholesterolemia Qualified Code(s): E78.00 - Pure hypercholesterolemia, unspecified; E78.0 - Pure hypercholesterolemia Is this a current diagnosis for this admission?: Yes (9) Old [place] (myocardial infarction) Is this a current diagnosis for this admission?: Yes (10) Mixed anxiety and depressive disorder Is this a current diagnosis for this admission?: Yes - Time Time Spent with patient: 25-34 minutes Medications reviewed and adjusted accordingly: Yes Anticipated discharge: Home with Homehealth - Inpatient Certification Medical Necessity: Need Close Monitoring Due to Risk of Patient Decompensation, Need For IV Fluids, Need For Continuous Telemetry Monitoring, Need for IV Antibiotics, Risk of Complication if Not Cared For in Hospital Post Hospital Care: D/C Cocktail Server Documentation - Plan Summary Plan Summary: See attending physician orders.
[2016-12-08] MEDS: RIVAROXABAN 10 MG TABLET PO SCH (17:41)
[2016-12-08] MEDS: SIMVASTATIN 10 MG TABLET PO SCH (21:44)
[2016-12-09] MEDS: BUSPIRONE HCL 10 MG TABLET PO SCH ×3 (05:44→22:39)
[2016-12-09] MEDS: METFORMIN HCL 850 MG TABLET PO SCH (09:18)
[2016-12-09] MEDS: BUDESONIDE/FORMOTEROL 160-4.5 MCG 60 PUFF/6 GM MDI IH SCH ×2 (09:18→22:38)
[2016-12-09] MEDS: GUAIFENESIN 600 MG TABLET.SA PO SCH ×2 (09:19→22:38)
[2016-12-09] MEDS: PAROXETINE HCL 20 MG TABLET PO SCH (09:19)
[2016-12-09] MEDS: RAMIPRIL 10 MG CAPSULE PO SCH (09:19)
[2016-12-09] MEDS: DONEPEZIL HCL 5 MG TABLET PO SCH (09:19)
[2016-12-09] MEDS: CEFUROXIME 500 MG TABLET PO SCH ×2 (09:20→22:38)
[2016-12-09] MEDS: INSULIN LISPRO 100 UNIT/ML 3 ML VIAL SUBCUT PRN ×2 (13:11→23:18)
--- NOTE | 2016-12-09 16:49 | PDOC PROGRESS REPORT ---
Subjective Progress Note for:: 12/09/16 Subjective:: Patient was seen by the bedside, she has no new complaints today Physical Exam Vital Signs: Temp Pulse Resp BP Pulse Ox 98.1 F 77 16 167/89 H 98 12/09/16 12:00 12/09/16 14:00 12/09/16 12:00 12/09/16 12:00 12/09/16 12:00 Intake & Output 12/08/16 12/09/16 12/10/16 06:59 06:59 06:59 Intake Total 500 880 Balance 500 880 General appearance: PRESENT: no acute distress Eye exam: PRESENT: PERRLA Respiratory exam: PRESENT: clear to auscultation merna Cardiovascular exam: PRESENT: +S1, +S2 Results Laboratory Results: 12/06/16 08:07 12/06/16 08:07 12/04/16 12/04/16 12/04/16 15:35 15:35 21:45 Creatine Kinase 117 119 CK-MB (CK-2) 2.64 Troponin I 0.051 NT-Pro-B Natriuret Pep 12/04/16 12/06/16 21:45 08:07 Creatine Kinase CK-MB (CK-2) 3.06 Troponin I 0.053 NT-Pro-B Natriuret Pep 1270 H Impressions: Chest X-Ray 12/03/16 22:54 IMPRESSION: NO ACUTE RADIOGRAPHIC FINDING IN THE CHEST. Assessment & Plan - Diagnosis (1) Chest pain Is this a current diagnosis for this admission?: Yes (2) Anemia of chronic disease Is this a current diagnosis for this admission?: Yes (3) Chest pain Qualifiers: Chest pain type: unspecified Qualified Code(s): R07.9 - Chest pain, unspecified
[2016-12-09] MEDS: RIVAROXABAN 10 MG TABLET PO SCH (18:14)
[2016-12-09] MEDS: SIMVASTATIN 10 MG TABLET PO SCH (22:38)
[2016-12-10] MEDS: BUSPIRONE HCL 10 MG TABLET PO SCH ×3 (05:08→21:49)
[2016-12-10] MEDS: BUDESONIDE/FORMOTEROL 160-4.5 MCG 60 PUFF/6 GM MDI IH SCH ×2 (10:26→21:49)
[2016-12-10] MEDS: GUAIFENESIN 600 MG TABLET.SA PO SCH ×2 (10:27→21:49)
[2016-12-10] MEDS: PAROXETINE HCL 20 MG TABLET PO SCH (10:27)
[2016-12-10] MEDS: DONEPEZIL HCL 5 MG TABLET PO SCH (10:28)
[2016-12-10] MEDS: ALPRAZOLAM 0.25 MG TABLET PO PRN (10:28)
[2016-12-10] MEDS: RAMIPRIL 10 MG CAPSULE PO SCH (10:28)
[2016-12-10] MEDS: METFORMIN HCL 850 MG TABLET PO SCH (10:29)
[2016-12-10] MEDS: CEFUROXIME 500 MG TABLET PO SCH ×2 (10:29→21:49)
[2016-12-10] MEDS: RIVAROXABAN 10 MG TABLET PO SCH (17:21)
--- NOTE | 2016-12-10 17:35 | PDOC PROGRESS REPORT ---
Subjective Progress Note for:: 12/10/16 Subjective:: Patient was seen by the bedside, she has no new complaints today Physical Exam Vital Signs: Temp Pulse Resp BP Pulse Ox 99.4 F 82 20 148/88 H 97 12/10/16 16:00 12/10/16 16:00 12/10/16 16:00 12/10/16 16:00 12/10/16 16:00 Intake & Output 12/09/16 12/10/16 12/11/16 06:59 06:59 06:59 Intake Total 880 400 570 Balance 880 400 570 Weight 93.6 kg General appearance: PRESENT: no acute distress Eye exam: PRESENT: PERRLA Respiratory exam: PRESENT: clear to auscultation merna Cardiovascular exam: PRESENT: +S1, +S2 Results Laboratory Results: 12/06/16 08:07 12/06/16 08:07 12/04/16 12/04/16 12/04/16 15:35 15:35 21:45 Creatine Kinase 117 119 CK-MB (CK-2) 2.64 Troponin I 0.051 NT-Pro-B Natriuret Pep 12/04/16 12/06/16 21:45 08:07 Creatine Kinase CK-MB (CK-2) 3.06 Troponin I 0.053 NT-Pro-B Natriuret Pep 1270 H Impressions: Chest X-Ray 12/03/16 22:54 IMPRESSION: NO ACUTE RADIOGRAPHIC FINDING IN THE CHEST. Assessment & Plan - Diagnosis (1) Chest pain Is this a current diagnosis for this admission?: Yes (2) Anemia of chronic disease Is this a current diagnosis for this admission?: Yes (3) Chest pain Qualifiers: Chest pain type: unspecified Qualified Code(s): R07.9 - Chest pain, unspecified
[2016-12-10] MEDS: SIMVASTATIN 10 MG TABLET PO SCH (21:49)
[2016-12-11] MEDS: BUSPIRONE HCL 10 MG TABLET PO SCH ×3 (05:07→23:24)
--- NOTE | 2016-12-11 10:18 | PDOC PROGRESS REPORT ---
Subjective Progress Note for:: 12/11/16 Subjective:: Patient denied any chest pain or difficulty with breathing. She denied wheezing and there is improvement in her coughing spells. No fever or chills. No nausea, vomiting, or abdominal pain. No diarrhea. Patient is scheduled for pharmacologic stress test this morning. Physical Exam Vital Signs: Temp Pulse Resp BP Pulse Ox 97.6 F 70 20 171/62 H 96 12/11/16 00:00 12/11/16 02:00 12/11/16 00:00 12/11/16 00:00 12/11/16 00:00 Intake & Output 12/10/16 12/11/16 12/12/16 06:59 06:59 06:59 Intake Total 400 570 Balance 400 570 Weight 93.6 kg Physical Exam: General appearance: PRESENT: no acute distress, cooperative, obese Head exam: PRESENT: atraumatic, normocephalic Eye exam: PRESENT: conjunctiva pink, EOMI, PERRLA. ABSENT: scleral icterus Respiratory exam: ABSENT: accessory muscle use, chest wall tenderness, clear to auscultation merna, crackles, decreased breath sounds, prolonged expiratory phas, rales, retraction, rhonchi, stridor, symmetrical, tachypnea, unlabored, wheezes , other Cardiovascular exam: PRESENT: RRR. ABSENT: diastolic murmur, rubs, systolic murmur GI/Abdominal exam: PRESENT: normal bowel sounds, soft. 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 ABSENT: motor sensory deficit Psychiatric exam: PRESENT: appropriate affect, normal mood. ABSENT: homicidal ideation, suicidal ideation Skin exam: PRESENT: dry, intact, warm. ABSENT: cyanosis, rash Results Laboratory Results: 12/06/16 08:07 12/06/16 08:07 12/04/16 12/04/16 12/04/16 15:35 15:35 21:45 Creatine Kinase 117 119 CK-MB (CK-2) 2.64 Troponin I 0.051 NT-Pro-B Natriuret Pep 12/04/16 12/06/16 21:45 08:07 Creatine Kinase CK-MB (CK-2) 3.06 Troponin I 0.053 NT-Pro-B Natriuret Pep 1270 H Impressions: Chest X-Ray 12/03/16 22:54 IMPRESSION: NO ACUTE RADIOGRAPHIC FINDING IN THE CHEST. Assessment & Plan - Diagnosis (1) Chest pain with high risk for cardiac etiology Is this a current diagnosis for this admission?: YesPlan: Follow up on pharmacologic stress test evaluation before discharge. (2) Chronic atrial fibrillation Is this a current diagnosis for this admission?: YesPlan: Maintain on current medication management. See attending physician orders. (3) Acute bronchitis due to other specified organisms Is this a current diagnosis for this admission?: YesPlan: Maintain on Cefuroxime coverage. Continue on Symbicort and Combivent inhaler therapy. (4) Electrolyte abnormality Is this a current diagnosis for this admission?: Yes (5) Anemia of chronic disease Is this a current diagnosis for this admission?: Yes (6) Diabetes mellitus type 2 in obese Is this a current diagnosis for this admission?: YesPlan: Increase Metformin to 500 mg p.o acbs. Maintain on other current medication management. See attending physician orders. (7) HTN (hypertension) Qualifiers: Hypertension type: essential hypertension Qualified Code(s): I10 - Essential (primary) hypertension Is this a current diagnosis for this admission?: YesPlan: Maintain on current medication management. See attending physician orders. (8) HLD (hyperlipidemia) Qualifiers: Hyperlipidemia type: pure hypercholesterolemia Qualified Code(s): E78.00 - Pure hypercholesterolemia, unspecified; E78.0 - Pure hypercholesterolemia Is this a current diagnosis for this admission?: Yes (9) Old NV (myocardial infarction) Is this a current diagnosis for this admission?: YesPlan: see attending physician orders. Follow up on pharmacologic stress test findings. (10) Mixed anxiety and depressive disorder Is this a current diagnosis for this admission?: YesPlan: Maintain on current medication management. - Time Time Spent with patient: 25-34 minutes Medications reviewed and adjusted accordingly: Yes Anticipated discharge: Home with Homehealth Within: within 48 hours - Inpatient Certification Based on my medical assessment, after consideration of the patient's comorbidities, presenting symptoms, or acuity I expect that the services needed warrant INPATIENT care.: Yes I certify that my determination is in accordance with my understanding of Medicare's requirements for reasonable and necessary INPATIENT services [42 CFR 412.3e].: Yes Medical Necessity: Need Close Monitoring Due to Risk of Patient Decompensation, Need For Continuous Telemetry Monitoring, Need for Nebulizer Therapy and Monitoring of Response, Risk of Complication if Not Cared For in Hospital Post Hospital Care: 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
[2016-12-11] MEDS: DONEPEZIL HCL 5 MG TABLET PO SCH (11:56)
[2016-12-11] MEDS: RAMIPRIL 10 MG CAPSULE PO SCH (11:57)
[2016-12-11] MEDS: PAROXETINE HCL 20 MG TABLET PO SCH (11:57)
[2016-12-11] MEDS: CEFUROXIME 500 MG TABLET PO SCH ×2 (11:57→23:24)
[2016-12-11] MEDS: GUAIFENESIN 600 MG TABLET.SA PO SCH ×2 (11:58→23:27)
[2016-12-11] MEDS: BUDESONIDE/FORMOTEROL 160-4.5 MCG 60 PUFF/6 GM MDI IH SCH ×2 (11:59→23:25)
[2016-12-11] MEDS ORDERED: REGADENOSON INJ 0.4 MG/5 ML DISP.SYRIN IV ONE (14:29)
[2016-12-11] MEDS: METFORMIN HCL 500 MG TABLET PO SCH (18:16)
[2016-12-11] MEDS: RIVAROXABAN 10 MG TABLET PO SCH (18:16)
--- NOTE | 2016-12-11 22:25 | DRAGON STRESS TEST REPORT ---
2 Day Intravenous Lexiscan Cardiolite stress test using single photon emmision computerized tomography. Date of Resting procedure: 12/07/2016. Note that the patient had wheezing and hence the stress portion of the test was not done on this day. Date of Stress procedure: 12/11/2016 Ordering Provider: Dr. Barrett Indication: Chest pain in a patient with a history of coronary artery disease and history of old MO. Coronary risk factors: Age, and prediabetes. Resting E KG: Atrial Fibrillation with controlled ventricular response. Stress EKG: No changes of ischemia. The patient had no chest pain or discomfort, and there were no ventricular arrhythmias seen. Reason for termination: Protocol. Conclusions: Normal EKG and hemodynamic response to IV Lexiscan. Nuclear data: At rest , on 12/07/2016, the patient was given 14.42 millicuries of technetium 99m sestamibi injected intravenously. As per protocol rest non gated SPECT images were obtained. Subsequently the patient, on 12/11/2016, was given intravenous Lexiscan at a dose of 0.4 mg in 5 mL intravenously, followed by flush with normal saline. Subsequently the stress dose of 41.9 millicuries of technetium 99m sestamibi was injected intravenously on 12/11/2016. As per protocol stress gated images were obtained. Nuclear interpretation: Review of images showed that all segments of the myocardium had normal perfusion at rest, and normal perfusion post stress with IV Lexiscan. All segments of the myocardium had normal motion, contraction, and thickening by gated study. T. I D. ratio was read as abnormal at 1 .24. Visually this is erroneous, and the T I D ratio was normal Computer read rest, and stress left ventricular ejection fraction were 68 %, and actually 3 %, respectively. Conclusion: 1. There is no scintigraphic evidence of Lexiscan induced myocardial ischemia. 2. There is no scintigraphic evidence of myocardial infarction/scar. Recommendations: Aggressive risk factor modification, and treating the underlying co- morbidities. This was discussed with Dr. Barrett. [facility] HOSPITALMadhav
[2016-12-11] MEDS: SIMVASTATIN 10 MG TABLET PO SCH (23:25)
[2016-12-12] MEDS: BUSPIRONE HCL 10 MG TABLET PO SCH (05:18)
[2016-12-12] MEDS: METFORMIN HCL 500 MG TABLET PO SCH (07:49)
--- NOTE | 2016-12-12 08:21 | PDOC DISCHARGE SUMMARY ---
General - Admit/Disc Date/PCP Admission Date/Primary Care Provider: 12/04/16 13:53 JEANNETTE NEIDA Discharge Date: 12/12/16 - Discharge Diagnosis (1) Chest pain with high risk for cardiac etiology Is this a current diagnosis for this admission?: Yes (2) Chronic atrial fibrillation Is this a current diagnosis for this admission?: Yes (3) Acute bronchitis due to other specified organisms Is this a current diagnosis for this admission?: Yes (4) Electrolyte abnormality Is this a current diagnosis for this admission?: Yes (5) Anemia of chronic disease Is this a current diagnosis for this admission?: Yes (6) Diabetes mellitus type 2 in obese Is this a current diagnosis for this admission?: Yes (7) HTN (hypertension) Is this a current diagnosis for this admission?: Yes (8) HLD (hyperlipidemia) Is this a current diagnosis for this admission?: Yes (9) Old [place] (myocardial infarction) Is this a current diagnosis for this admission?: Yes (10) Mixed anxiety and depressive disorder Is this a current diagnosis for this admission?: Yes - Additional Information Resuscitation Status: Full Code Home Medications: Alprazolam [Xanax 0.25 mg Tablet] 0.25 mg PO BIDP PRN 12/04/16 Buspirone HCl [Buspar 15 mg Tablet] 7.5 mg PO BID 12/04/16 Donepezil HCl [Aricept 5 mg Tablet] 5 mg PO DAILY 12/04/16 Hydrochlorothiazide [Hydrodiuril 25 mg Tablet] 25 mg PO DAILY 12/04/16 Insulin Glargine,Hum.rec.anlog [Elton Rodriguez] 40 units SQ DAILY 12/04/16 Ketoconazole 1 applic TOP DAILY 12/04/16 Metformin HCl [Glucophage] 850 mg PO Q12 12/04/16 Mirabegron [Myrbetriq] 50 mg PO DAILY 12/04/16 Nystatin [Mycostatin Topical Powder 15 gm] 1 applic TOP BID 12/04/16 Paroxetine HCl [Paxil 20 mg Tablet] 20 mg PO DAILY 12/04/16 Ramipril [Altace 10 mg Capsule] 10 mg PO DAILY 12/04/16 Rivaroxaban [Xarelto] 20 mg PO DAILY 12/04/16 Simvastatin [Zocor 20 mg Tablet] 20 mg PO DAILY 12/04/16 Trazodone HCl [Desyrel 50 mg Tablet] 50 mg PO QHS 12/04/16 History of Present Illness Patient complains of: Right sided chest pain, Fever, chest congestion, productive cough History of Present Illness: RAJWINDER BOONE is a 81 year old female presented to ED via EMS service with complain of right sided chest pain. Patient described pain as intermittent sharp , lasted about 2-3 minutes per episode and not related to any particular event or rest. There is associated episodes of palpitation. No associated diaphoresis , nausea, or vomiting. Patient denied any significant relieving factor. There is reported chest congestion with minimally productive coughing and subjective fever over last 2-3 days. Her initial ED evaluation did revealed anemia, left shift in her differential cell count, Atrial fibrillation, elevated NT-ProBNP, indeterminate Troponin-I and electrolyte derangement. In view of her age, presentation and comorbidities she was advised hospitalization to observation bed for further evaluation and management. Hospital Course Hospital Course: Patient was further evaluated for possible cardiac source of chest pain due to elevated Troponin I upon presentation. Her serial cardiac enzymes were not diagnostic. In view of her comorbidities and advance age she under went pharmacologic stress test that was negative for any provoked scintigraphic evidence of ischemia. She was treated for acute bronchitis and started on Symbicort and Combivent therapy during this hospitalization. She will be discharged home on same along with her other preadmission medications. She will follow up in the office as instructed upon discharge. Physical Exam Vital Signs: Temp Pulse Resp BP Pulse Ox 97.7 F 74 20 144/88 H 100 12/12/16 05:29 12/12/16 07:00 12/12/16 05:29 12/12/16 05:29 12/12/16 05:29 Intake & Output 12/11/16 12/12/16 12/13/16 06:59 06:59 06:59 Intake Total 570 840 Balance 570 840 Physical Exam: General appearance: PRESENT: no acute distress, cooperative, obese Head exam: PRESENT: atraumatic, normocephalic Eye exam: PRESENT: conjunctiva pink, EOMI, PERRLA. ABSENT: scleral icterus Respiratory exam: ABSENT: accessory muscle use, chest wall tenderness, clear to auscultation merna, crackles, decreased breath sounds, prolonged expiratory phase , rales, retraction, rhonchi, stridor, symmetrical, tachypnea, unlabored, wheezes, other Cardiovascular exam: PRESENT: RRR. ABSENT: diastolic murmur, rubs, systolic murmur GI/Abdominal exam: PRESENT: normal bowel sounds, soft. 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 ABSENT: motor sensory deficit Psychiatric exam: PRESENT: appropriate affect, normal mood. ABSENT: homicidal ideation, suicidal ideation Skin exam: PRESENT: dry, intact, warm. ABSENT: cyanosis, rash Results Laboratory Results: 12/06/16 08:07 12/06/16 08:07 12/04/16 12/04/16 12/04/16 15:35 15:35 21:45 Creatine Kinase 117 119 CK-MB (CK-2) 2.64 Troponin I 0.051 NT-Pro-B Natriuret Pep 12/04/16 12/06/16 21:45 08:07 Creatine Kinase CK-MB (CK-2) 3.06 Troponin I 0.053 NT-Pro-B Natriuret Pep 1270 H Impressions: Chest X-Ray 12/03/16 22:54 IMPRESSION: NO ACUTE RADIOGRAPHIC FINDING IN THE CHEST. Qualifiers PATEINT BEING DISCHARGED WITH ANY OF THE FOLLOWING DIAGNOSIS?: No Plan Discharge Plan: D/C home today. Follow up in office as instructed upon discharge. Time Spent: Less than 30 Minutes
[2016-12-12 08:30] VITALS: BP 154/78
[2016-12-12] MEDS: GUAIFENESIN 600 MG TABLET.SA PO SCH (09:12)
[2016-12-12] MEDS: DONEPEZIL HCL 5 MG TABLET PO SCH (09:12)
[2016-12-12] MEDS: BUDESONIDE/FORMOTEROL 160-4.5 MCG 60 PUFF/6 GM MDI IH SCH (09:13)
[2016-12-12] MEDS: PAROXETINE HCL 20 MG TABLET PO SCH (09:13)
[2016-12-12] MEDS: RAMIPRIL 10 MG CAPSULE PO SCH (09:13)
[2016-12-12] MEDS: CEFUROXIME 500 MG TABLET PO SCH (09:14)
== END 2016-12-12 11:49 | disposition home or self-care (01) | DRG 203 ==
LOC: ER 22:10 → UNDOADMOB 12-04 04:03 → EH 12-04 04:03 → 4S 12-04 06:05 → OBSVTOIN 12-04 13:53
PROVIDERS: ADMIT Internal Medicine Geriatric Medicine; ATTEND Internal Medicine Geriatric Medicine
DX: J20.9 Acute bronchitis, unspecified (principal); I48.2 Chronic atrial fibrillation; D63.8 Anemia in other chronic diseases classified elsewhere; E11.9 Type 2 diabetes mellitus without complications; E78.00 Pure hypercholesterolemia, unspecified; F41.9 Anxiety disorder, unspecified; F32.9 Major depressive disorder, single episode, unspecified; I10 Essential (primary) hypertension; I25.2 Old myocardial infarction; E66.9 Obesity, unspecified; Z68.32 Body mass index [BMI] 32.0-32.9, adult; Z90.710 Acquired absence of both cervix and uterus; Z79.899 Other long term (current) drug therapy; Z79.4 Long term (current) use of insulin; Z88.6 Allergy status to analgesic agent; Z86.73 Personal history of transient ischemic attack (TIA), and cerebral infarction without residual deficits
CPT/HCPCS: 36415; 51701; 71010; 78452; 80048; 80053; 80061; 81001; 82272; 82550; 82553; 82607; 82728; 82746; 82962; 83540; 83550; 83880; 84484; 85025; 85045; 87040; 87070; 87205; 93005; 93010; 93017; 94640; 99285; A9500; G0378; J0692; J1815; J2785; J3490; J7620; Q9969

== ENCOUNTER 2017-01-11 09:34 | Day surgery (SDC) | payer MEDICARE ==
[~2017-01-11 09:34] MED LIST: BUPIVACAINE HCL 0.75% INJ/PF (7.5 MG/1 ML) 10 ML SDV OS PRN; KETOROLAC TROMETHAMINE 0.45% 4 DROP/0.4 ML DROPERETTE OS PRN; LIDOCAINE 4% INJ/PF (40 MG/ML) 5 ML AMPUL OS PRN; MIDAZOLAM 2 MG/2 ML INJ ONE
[2017-01-11] MEDS ORDERED: PHENYLEPHRINE/KETOROLAC 1%-0.3% 4 ML VIAL ONE (10:02)
[2017-01-11] MEDS ORDERED: CHONDR SU A NA/HYALUR INTRAOC KIT (SURGICARE) ONE (10:02)
[2017-01-11] MEDS: BESIFLOXACIN HCL 0.6% OPH SUSP 5 ML BOTTLE OS PRN ×4 (10:40→11:47)
[2017-01-11] MEDS: TETRACAINE HCL 0.5% OPH SOLN 0.6 ML DROPERETTE OS PRN ×2 (10:40→11:09)
[2017-01-11] MEDS: TROPICAMIDE 1% OPH SOLN 3 ML OS PRN ×3 (10:40→11:09)
[2017-01-11] MEDS: CYCLOPENTOLATE 0.2%/PHENYLEPHRINE 1% OPH SOLN 2 ML OS PRN ×3 (10:40→11:09)
[2017-01-11] MEDS ORDERED: LIDOCAINE 1% INJ-PF (10 MG/ML) 30 ML SDV ONE (11:21)
--- NOTE | 2017-01-11 12:13 | [facility] OPERATIVE REPORT E ---
[facility] Operative Report NAME: RAJWINDER BOONE AGE: 81Y DATE OF SURGERY: 01/11/2017 ROOM: PREOPERATIVE DIAGNOSIS: CATARACT, LEFT EYE. POSTOPERATIVE DIAGNOSIS: CATARACT, LEFT EYE. PROCEDURE PERFORMED: PHACOEMULSIFICATION WITH POSTERIOR CHAMBER INTRAOCULAR LENS, LEFT EYE. SURGEON: KAREN BROWNE MD ANESTHESIA: TOPICAL WITH MAC PLUS INTRAOCULAR. INDICATIONS FOR SURGERY: The patient is an 81-year-old who underwent uneventful cataract extraction with intraocular lens implant, left eye, on 01/11/2017. Best corrected visual acuity 20/50. Difficulty with driving. PROCEDURE: The patient was brought to the Operating Room and placed on the operative table. Following tetracaine drops, topical anesthesia was administered. This consisted of instrument wipe pledgets soaked in a solution of 4% Xylocaine mixed with 0.75% Marcaine in a 1:2 ratio. A 2 x 1 cm pledget was placed in the superior fornix. A 1 x 1 cm pledget was placed in the inferior fornix. The eye was patched shut for 5 minutes. The patch was removed. The eye was sterilely prepped and draped in the usual manner. Lid speculum was placed in the eye. The pledgets were removed. 4-0 black silk sutures were placed around the superior and the inferior rectus muscles to be used as traction. A conjunctival peritomy was made at the 10 o'clock position. Hemostasis was obtained with bipolar cautery. A posterior limbal groove was created using a crescent knife and dissected anteriorly towards the cornea. A sharp point blade was used to create a paracentesis site at the 2 o'clock position. A 2.4 mm keratome was used to enter the anterior chamber through the groove. Viscoelastic was injected into the anterior chamber. An anterior capsulotomy was performed using Utrata forceps in a capsulorrhexis fashion. Hydrodissection and hydrodelineation were performed. Phacoemulsification was performed in juibtl-gls-pmboadi technique. A total of 8.8 seconds phaco time was used. Following this, the I/A unit was used to remove residual cortex. Viscoelastic was injected into the capsular bag. Intraocular lens model [id number], 20.0 diopters, serial number [id number], was placed in the capsular bag. The I/A unit was used to remove residual viscoelastic. The wound was seen to be watertight under high and low pressure, and no sutures were placed. The intraocular lens was well centered. The pressure was adjusted in the eye to normal pressure. The 4-0 black silk sutures and lid speculum were removed. The eye was shielded after Besivance drops were placed. The patient tolerated the procedure well and was sent to the Recovery Room in good condition. DICTATING PHYSICIAN: KAREN BROWNE M.D. DICTATING PHYSICIAN: KAREN BROWNE M.D. [id number] PHY#: [id number] ID: [id number] JOB#: [id number] ACCT: [id number] cc:KAREN BROWNE M.D. >
--- NOTE | 2017-01-11 12:18 | [facility] DISCHARGE SUMMARY E ---
[facility] Discharge Summary NAME: RAJWINDER BOONE AGE: 81Y ADMITTED: 01/11/2017 DISCHARGED: 01/11/2017 ADMISSION DIAGNOSIS: Cataract, left eye. DISCHARGE DIAGNOSIS: Cataract, left eye. HOSPITAL COURSE: The patient is an 81-year-old who underwent uneventful cataract extraction with intraocular lens implant, left eye, on 01/11/2017. She will be discharged to home. DISCHARGE INSTRUCTIONS: She is instructed to resume preoperative medications; to take Tylenol as needed for discomfort; to keep her eye shielded; to use Besivance, Durezol and Ilevro at 3:00 p.m. and 8:00 p.m.; and to follow up in my office in 1 day. DICTATING PHYSICIAN: KAREN BROWNE M.D. [id number] PHY#: [id number] ID: [id number] JOB#: [id number] ACCT: [id number] cc:KAREN BROWNE M.D. >
== END 2017-01-11 12:47 | disposition home or self-care (01) ==
LOC: SC 09:34
PROVIDERS: ATTEND Ophthalmology
PROC: 08RK3JZ Replacement of Left Lens with Synthetic Substitute, Percutaneous Approach (ICD-10-PCS; principal; 2017-01-11 11:00)
DX: H25.812 Combined forms of age-related cataract, left eye (principal); H57.03 Miosis; H26.491 Other secondary cataract, right eye; E11.9 Type 2 diabetes mellitus without complications; H40.032 Anatomical narrow angle, left eye; H53.453 Other localized visual field defect, bilateral; H02.125 Mechanical ectropion of left lower eyelid; I10 Essential (primary) hypertension; G47.30 Sleep apnea, unspecified; Z79.01 Long term (current) use of anticoagulants; Z79.84 Long term (current) use of oral hypoglycemic drugs; Z86.73 Personal history of transient ischemic attack (TIA), and cerebral infarction without residual deficits; I25.2 Old myocardial infarction
CPT/HCPCS: 82962; 66984; V2632; J2250; J3490 ×4; A9270; C9447; 142

== ENCOUNTER 2017-07-01 02:19 | Inpatient (IN) | payer MEDICARE ==
[2017-07-01 02:45] LABS: ABSOLUTE EOSINOPHILS # (AUTO) 0.1 10^3/uL (0.0-0.6); ABSOLUTE MONOCYTES (AUTO) 0.6 10^3/uL (0.1-1.4); ABSOLUTE NEUT (AUTO) 6.6 10^3/uL (1.7-8.2); BASOPHILS % (AUTO) 0.5 % (0-2); EOSINOPHILS % (AUTO) 1.4 % (0-6); HEMOGLOBIN 11.5 g/dL (12.0-15.5); HGB HCT DIFFERENCE -1.5; MEAN CORPUSCULAR HEMOGLOBIN 26.4 pg (27.0-33.4); MEAN CORPUSCULAR HGB CONC 31.8 g/dL (32.0-36.0); MEAN CORPUSCULAR VOLUME 83 fl (80-97); MONOCYTES % (AUTO) 7.7 % (3-13); RED BLOOD COUNT 4.35 10^6/uL (3.72-5.28); RED CELL DISTRIBUTION WIDTH 15.1 % (11.5-14.0); SEGMENTED NEUTROPHILS % (AUTO) 78.4 % (42-78); WHITE BLOOD COUNT 8.4 10^3/uL (4.0-10.5)
[2017-07-01 02:50] LABS: PROTHROMBIN TIME 15.2 SEC (11.4-15.4)
[2017-07-01 02:51] LABS: PARTIAL THROMBOPLASTIN TIME 53.9 SEC (23.5-35.8)
[2017-07-01 02:59] LABS: ALANINE AMINOTRANSFERASE 19 U/L (9-52); ALBUMIN 4.1 g/dL (3.5-5.0); ALKALINE PHOSPHATASE 132 U/L (38-126); ANION GAP 14 (5-19); ASPARTATE AMINO TRANSFERASE 17 U/L (14-36); BILIRUBIN,DIRECT 0.4 mg/dL (0.0-0.4); BILIRUBIN,TOTAL 0.5 mg/dL (0.2-1.3); BLOOD UREA NITROGEN 38 mg/dL (7-20); CALCIUM 9.6 mg/dL (8.4-10.2); CARBON DIOXIDE 29 mmol/L (22-30); CHLORIDE 100 mmol/L (98-107); CREATINE KINASE 39 U/L (30-135); CREATININE RESULT 0.91 mg/dL (0.52-1.25); GLUCOSE 205 mg/dL (75-110); MAGNESIUM 1.9 mg/dL (1.6-2.3); SODIUM 142.9 mmol/L (137-145); TOTAL PROTEIN 7.1 g/dL (6.3-8.2)
[2017-07-01 03:11] LABS: CREATINE KINASE MB 1.36 ng/mL (<4.55)
--- NOTE | 2017-07-01 03:23 | RADIOLOGY REPORT (SQ) ---
EXAM DESCRIPTION: CHEST SINGLE VIEW COMPLETED DATE/TIME: 07/01/2017 3:08 am REASON FOR STUDY: CP COMPARISON: Chest x-ray 12/03/2016, 11/01/2015. CT angiogram chest 11/01/2015. EXAM PARAMETERS: NUMBER OF VIEWS: One view. TECHNIQUE: Single frontal radiographic view of the chest acquired. RADIATION DOSE: NA LIMITATIONS: None. FINDINGS: LUNGS AND PLEURA: No consolidation, pneumothorax or pleural effusion. MEDIASTINUM AND HILAR STRUCTURES: No masses. Contour normal. HEART AND VASCULAR STRUCTURES: Heart upper normal limit in size. No overt vascular congestion. BONES: Degenerative changes in the spine. HARDWARE: None in the chest. IMPRESSION: No acute radiographic finding in the chest. TECHNICAL DOCUMENTATION: JOB ID: [id number]
[2017-07-01 03:25] LABS: TROPONIN I 0.039 ng/mL
--- NOTE | 2017-07-01 03:44 | ER Document Report ---
ED General - General Mode of Arrival: Medic Information source: Relative - son, Emergency Med Personnel TRAVEL OUTSIDE OF THE [place] IN LAST 30 DAYS: No <ISREAL LÓPEZ - Last Filed: 07/01/17 04:07> <CORRINA KAUR - Last Filed: 07/01/17 09:56> - General Stated Complaint: LEFT ARM PAIN Time Seen by Provider: 07/01/17 02:25 - HPI Notes: Patient is an 82-year-old female presenting emergency department for shooting pains down her left arm. Patient is demented but states that these pains have been earlier and that she does not have them presently. Patient was brought in via EMS and her son called 911. Patient's son states that the patient has not been taking Valstar. Patient takes hydro-chlorothiazide for her hypertension and donepezil for Alzheimer disease. Son states the patient is a diabetic and takes insulin. Patient's PCP is Dr. Koenig. (ISREAL LÓPEZ) - Related Data Allergies/Adverse Reactions: codeine [Codeine] Allergy (Mild, Verified 12/04/16 04:13) unknown aspirin [Aspirin] Allergy (Verified 12/04/16 04:13) Home Medications: Current Home Medications Sertraline HCl [Zoloft 50 mg Tablet] 50 DAILY 07/01/17 [History] Valsartan 320 mg PO DAILY 07/01/17 [History] Past Medical History - General Information source: Relative - son Cannot obtain history due to: Dementia - Social History Smoking Status: Never Smoker Cigarette use (# per day): No Chew tobacco use (# tins/day): No Smoking Education Provided: No Frequency of alcohol use: None Drug Abuse: None Lives with: Family - son Family History: None Patient has suicidal ideation: No Patient has homicidal ideation: No - Past Medical History Cardiac Medical History: Reports: Hx Atrial Fibrillation, Hx Heart Attack - 2yrs ago?, Hx Hypercholesterolemia, Hx Hypertension - MEDICATION Pulmonary Medical History: Reports: Hx Bronchitis Neurological Medical History: Reports: Hx Cerebrovascular Accident - 2yrs ago ? Endocrine Medical History: Reports: Hx Diabetes Mellitus Type 2 Psychiatric Medical History: Reports: Hx Depression Past Surgical History: Reports: Hx Hysterectomy, Hx Tonsillectomy - Immunizations Hx Diphtheria, Pertussis, Tetanus Vaccination: Yes Hx Pneumococcal Vaccination: 10/22/13 <ISREAL LÓPEZ - Last Filed: 07/01/17 04:07> Review of Systems - Review of Systems Constitutional: No symptoms reported EENT: See HPI Cardiovascular: See HPI Respiratory: No symptoms reported Gastrointestinal: No symptoms reported Genitourinary: No symptoms reported Female Genitourinary: No symptoms reported Musculoskeletal: See HPI Skin: No symptoms reported Hematologic/Lymphatic: No symptoms reported Neurological/Psychological: No symptoms reported -: Yes All other systems reviewed and negative <ISREAL LÓPEZ - Last Filed: 07/01/17 04:07> Physical Exam <ISREAL LÓPEZ - Last Filed: 07/01/17 04:07> <CORRINA KAUR - Last Filed: 07/01/17 09:56> - Vital signs Vitals: Pulse Ox 96 07/01/17 02:24 - Notes Notes: GENERAL: Alert, confused. No acute distress. HEAD: Normocephalic, atraumatic. EYES: Appear normal. Pupils equal, round, and reactive to light. ENT: Moist mucus membranes, tongue midline. NECK: Full range of motion. Supple. Trachea midline. LUNGS: Clear to auscultation bilaterally, no wheezes, rales, or rhonchi. No respiratory distress. HEART: Bradycardia. Irregularly irregular. No murmurs, gallops, or rubs. ABDOMEN: Soft, non-tender. Non-distended. Normal bowel sounds. EXTREMITIES: Moves all 4 extremities spontaneously. Normal strength. No edema. NEUROLOGICAL: Alert. Normal speech. No focal neurological deficits. GCS 15. PSYCH: Demented. SKIN: Warm, dry, normal turgor. No rashes or lesions noted. (ISREAL LÓPEZ) Course - Laboratory Result Diagrams: 07/01/17 02:30 07/01/17 02:30 - Consults Dr. Carrington Time consulted: 03:44 <ISREAL LÓPEZ - Last Filed: 07/01/17 04:07> - Laboratory Result Diagrams: 07/01/17 02:30 07/01/17 02:30 <CORRINA KAUR - Last Filed: 07/01/17 09:56> - Re-evaluation Re-evalutation: 07/01/17 Patient presents with left arm pain. Patient has a recent stress test in November. At that time recommended aggressive medication management. Patient with no acute findings on blood work, EKG or chest x-ray, except for bradycardia. Patient is not hypotensive with this but no history of bradycardia. Patient was discussed and will be admitted to the hospital for further evaluation of her arm pain and bradycardia. Of note, patient apparently has not been taking amlodipine and valsartan recently per son. States that the pill was too large for the patient to swallow. (CORRINA KAUR) - Vital Signs Vital signs: Temp Pulse Resp BP Pulse Ox 97.8 F 59 L 20 180/64 H 100 07/01/17 07:43 07/01/17 07:43 07/01/17 07:43 07/01/17 07:43 07/01/17 07:43 - Laboratory Laboratory results interpreted by me: 07/01/17 07/01/17 07/01/17 02:30 02:30 02:30 Hgb 11.5 L MCH 26.4 L MCHC 31.8 L RDW 15.1 H Seg Neutrophils % 78.4 H Lymphocytes % 12.0 L APTT 53.9 H BUN 38 H Est GFR (Non-Af Amer) 59 L Glucose 205 H Alkaline Phosphatase 132 H NT-Pro-B Natriuret Pep 07/01/17 02:30 Hgb MCH MCHC RDW Seg Neutrophils % Lymphocytes % APTT BUN Est GFR (Non-Af Amer) Glucose Alkaline Phosphatase NT-Pro-B Natriuret Pep 914 H - Consults Dr. Carrington Reason for consultation: 07/01/17 03:[address] Carrington to discuss patient, he will admit the patient to IMCU. ( ISREAL LÓPEZ) Discharge <ISREAL LÓPEZ - Last Filed: 07/01/17 04:07> - Discharge Admitting Provider: [facility] Unit Admitted: IMCU <CORRINA KAUR - Last Filed: 07/01/17 09:56> - Discharge Clinical Impression: Bradycardia, Chronic atrial fibrillation, Left arm pain Condition: Stable Disposition: ADMITTED INPATIENT Scribe Attestation: 07/01/17 09:55 I personally performed the services described in the documentation, reviewed and edited the documentation which was dictated to the scribe in my presence, and it accurately records my words and actions. (CORRINA KAUR) Scribe Documentation - Scribe Written by Zulma:: Zulma Gastelum, 07/01/2017 3:50 acting as scribe for :: Gio <ISREAL LÓPEZ - Last Filed: 07/01/17 04:07>
[2017-07-01] MEDS ORDERED: VALSARTAN 160 MG TABLET PO ONE ×2 (07:00→16:00)
[2017-07-01 08:05] LABS: PROTHROMBIN TIME 14.5 SEC (11.4-15.4)
[2017-07-01 08:08] LABS: LIPASE 61.9 U/L (23-300); MAGNESIUM 1.6 mg/dL (1.6-2.3); PHOSPHORUS 3.6 mg/dL (2.5-4.5)
--- NOTE | 2017-07-01 08:14 | EKG REPORT ---
SEVERITY:- ABNORMAL ECG - SINUS RHYTHM NONSPECIFIC ST-T CHANGES LATERAL LEADS : Confirmed by: Sumit Flores MD 01-Jul-2017 08:13:52
--- NOTE | 2017-07-01 08:19 | EKG REPORT ---
SEVERITY:- BORDERLINE ECG - SINUS BRADYCARDIA NONSPECIFIC LATERAL ST-T CHANGES : Confirmed by: Sumit Flores MD 01-Jul-2017 08:18:39
[2017-07-01 08:22] LABS: CREATINE KINASE MB 1.44 ng/mL (<4.55); TROPONIN I 0.037 ng/mL
[2017-07-01 08:39] LABS: THYROID STIMULATING HORMONE 1.88 uIU/mL (0.47-4.68)
[2017-07-01 09:39] LABS: ARTERIAL BLOOD BASE EXCESS 4.8 mmol/L
[2017-07-01] MEDS ORDERED: ENOXAPARIN SODIUM INJ 30 MG/0.3 ML DISP.SYRIN SUBCUT SCH (10:00)
[2017-07-01] MEDS ORDERED: GLUCAGON,HUMAN RECOMB 1 MG INJ IM PRN (11:55)
[2017-07-01] MEDS ORDERED: DEXTROSE 50%-WATER SYRINGE 25 GM/50 ML DOSE IV PRN (11:55)
[2017-07-01] MEDS ORDERED: DEXTROSE 40% GEL 15 GM TUBE PO PRN (11:55)
[2017-07-01] MEDS ORDERED: DEXTROSE 40% GEL 15 GM TUBE X 2 PO PRN (11:55)
[2017-07-01] MEDS ORDERED: DEXTROSE 50%-WATER SYRINGE 12.5 GM/25 ML DOSE IV PRN (11:55)
[2017-07-01] MEDS ORDERED: (PENDING PHARMACY ID) (Rosuvastatin Calcium [Crestor 20 Mg Tablet] 20 MG) PO SCH (12:15)
[2017-07-01] MEDS ORDERED: VALSARTAN PO SCH (12:15)
[2017-07-01] MEDS ORDERED: AMLODIPINE PO SCH (12:15)
[2017-07-01] MEDS ORDERED: ENOXAPARIN SODIUM INJ 40 MG/0.4 ML DISP.SYRIN SUBCUT ONE (13:00)
[2017-07-01] MEDS: INSULIN LISPRO 100 UNIT/ML 3 ML VIAL SUBCUT PRN ×3 (13:22→21:36)
--- NOTE | 2017-07-01 13:44 | PDOC H&P ---
History of Present Illness Admission Date/PCP: 07/01/17 06:50 JEANNETTE CARRASQUILLO History of Present Illness: RAJWINDER BOONE is a 82 year old female, she has a history of type 2 diabetes mellitus, she could emergency room because of pain in the left upper extremities she denies any chest pain or shortness of breath, and emergency room she was evaluated the 12-lead EKG showed sinus bradycardia with a heart rate of in the low 30s, she was also found to have elevated BNP, because of the pain in the left upper arm, bradycardia and elevated BNP the emergency room physician is requesting hospital admission. Past Medical History Cardiac Medical History: Reports: Atrial Fibrillation, Myocardial Infarction - 2yrs ago?, Hyperlipidema, Hypertension - MEDICATION Pulmonary Medical History: Reports: Bronchitis Endocrine Medical History: Reports: Diabetes Mellitus Type 2 Psychiatric Medical History: Reports: Depression Past Surgical History Past Surgical History: Reports: Hysterectomy, Tonsillectomy Social History Lives with: Family - son Smoking Status: Never Smoker Frequency of Alcohol Use: Rare Hx Recreational Drug Use: No Drugs: None Hx Prescription Drug Abuse: No Family History Family History: None Parental Family History Reviewed: Yes Children Family History Reviewed: Yes Sibling(s) Family History Reviewed.: Yes Medication/Allergy Home Medications: Amlodipine/Valsartan [Amlodipine-Valsartan 5-320 mg] 1 each PO DAILY 07/01/17 Donepezil HCl [Aricept 5 mg Tablet] 5 mg PO DAILY 07/01/17 Hydrochlorothiazide [Hydrodiuril 25 mg Tablet] 25 mg PO DAILY 07/01/17 Paroxetine HCl [Paxil 20 mg Tablet] 20 mg PO DAILY 07/01/17 Rosuvastatin Calcium [Crestor 20 mg Tablet] 20 mg PO DAILY 07/01/17 Sertraline HCl [Zoloft 50 mg Tablet] 50 mg PO DAILY 07/01/17 Allergies/Adverse Reactions: codeine [Codeine] Allergy (Mild, Verified 12/04/16 04:13) unknown aspirin [Aspirin] Allergy (Verified 12/04/16 04:13) Review of Systems Constitutional: ABSENT: chills, fever(s), headache(s), weight gain, weight loss Eyes: ABSENT: visual disturbances Ears: ABSENT: hearing changes Cardiovascular: ABSENT: chest pain, dyspnea on exertion, edema, orthropnea, palpitations Respiratory: ABSENT: cough, hemoptysis Gastrointestinal: ABSENT: abdominal pain, constipation, diarrhea, hematemesis, hematochezia, nausea, vomiting Genitourinary: ABSENT: dysuria, hematuria Musculoskeletal: ABSENT: joint swelling Integumentary: ABSENT: rash, wounds Neurological: ABSENT: abnormal gait, abnormal speech, confusion, dizziness, focal weakness, syncope Psychiatric: ABSENT: anxiety, depression, homidical ideation, suicidal ideation Endocrine: ABSENT: cold intolerance, heat intolerance, menstrual abnormalities, polydipsia, polyuria Hematologic/Lymphatic: ABSENT: easy bleeding, easy bruising, lymphadenopathy Physical Exam Vital Signs: Temp Pulse Resp BP Pulse Ox 97.6 F 67 20 169/72 H 100 07/01/17 12:04 07/01/17 12:04 07/01/17 12:04 07/01/17 12:04 07/01/17 12:04 Intake & Output 06/30/17 07/01/17 07/02/17 06:59 06:59 06:59 Intake Total 695 Balance 695 General appearance: PRESENT: no acute distress, well-developed, well-nourished Head exam: PRESENT: atraumatic, normocephalic Eye exam: PRESENT: conjunctiva pink, EOMI, PERRLA Ear exam: PRESENT: normal external ear exam Mouth exam: PRESENT: moist, tongue midline Neck exam: PRESENT: full ROM Respiratory exam: PRESENT: clear to auscultation merna Cardiovascular exam: PRESENT: RRR, +S1, +S2 Vascular exam: PRESENT: normal capillary refill GI/Abdominal exam: PRESENT: normal bowel sounds, soft Rectal exam: PRESENT: deferred Neurological exam: PRESENT: alert, awake, oriented to person, oriented to place , oriented to time, oriented to situation, CN II-XII grossly intact Psychiatric exam: PRESENT: appropriate affect, normal mood Skin exam: PRESENT: dry, intact, warm Results Laboratory Results: 07/01/17 07/01/17 07/01/17 07:30 07:30 07:30 Carbonic Acid HCO3/H2CO3 Ratio ABG pH ABG pCO2 ABG pO2 ABG HCO3 ABG O2 Saturation ABG Base Excess FiO2 Phosphorus 3.6 Magnesium 1.6 Ammonia 17.5 Amylase 47 Lipase 61.9 TSH 1.88 Free T4 1.12 07/01/17 09:07 Carbonic Acid 1.47 H HCO3/H2CO3 Ratio 20:1 ABG pH 7.41 ABG pCO2 48.7 H ABG pO2 74.6 L ABG HCO3 30.3 H ABG O2 Saturation 95.0 ABG Base Excess 4.8 FiO2 ROOM AIR Phosphorus Magnesium Ammonia Amylase Lipase TSH Free T4 07/01/17 07/01/17 07:30 07:30 Creatine Kinase 36 CK-MB (CK-2) 1.44 Troponin I 0.037 Impressions: Chest X-Ray 07/01/17 02:26 IMPRESSION: No acute radiographic finding in the chest. Assessment & Plan - Diagnosis (1) Sinus bradycardia Is this a current diagnosis for this admission?: Yes Plan: She has sinus bradycardia, she is not on any beta-narinder, the differential diagnosis would include sick sinus syndrome (2) Left upper arm pain Is this a current diagnosis for this admission?: Yes Plan: Cardiac enzymes will be drawn to rule out myocardial infarction, the BNP is elevated 2D echo is ordered,
[2017-07-01] MEDS ORDERED: DONEPEZIL HCL 5 MG TABLET PO ONE (16:00)
[2017-07-01] MEDS ORDERED: SERTRALINE HCL 50 MG TABLET PO ONE (16:00)
[2017-07-01] MEDS ORDERED: AMLODIPINE BESYLATE 5 MG TABLET PO ONE (16:00)
[2017-07-01 16:33] LABS: CREATINE KINASE MB 1.59 ng/mL (<4.55); TROPONIN I 0.036 ng/mL
[2017-07-01 18:14] LABS: APPEARANCE,URINE CLEAR; BILIRUBIN,URINE NEGATIVE (NEGATIVE); GLUCOSE, URINE NEGATIVE (NEGATIVE); KETONES,URINE NEGATIVE (NEGATIVE); LEUKOCYTE ESTERASE,URINE NEGATIVE (NEGATIVE); NITRITE,URINE NEGATIVE (NEGATIVE); PROTEIN,URINE 100 mg/dL (NEGATIVE); URINE SPECIFIC GRAVITY 1.014; UROBILINOGEN,URINE NEGATIVE mg/dL (<2.0)
[2017-07-01 18:33] LABS: URINE BARBITURATES SCREEN NEGATIVE; URINE METHADONE SCREEN NEGATIVE; URINE OPIATES LOW NEGATIVE; URINE PHENCYCLIDINE SCREEN NEGATIVE
[2017-07-01 19:30] LABS: CREATINE KINASE MB 1.61 ng/mL (<4.55); TROPONIN I 0.032 ng/mL
[2017-07-01] MEDS: ATORVASTATIN CALCIUM 40 MG TABLET PO SCH (21:35)
[2017-07-02 06:24] LABS: ABSOLUTE BASOPHILS # (AUTO) 0.1 10^3/uL (0.0-0.2); ABSOLUTE EOSINOPHILS # (AUTO) 0.2 10^3/uL (0.0-0.6); ABSOLUTE MONOCYTES (AUTO) 0.5 10^3/uL (0.1-1.4); ABSOLUTE NEUT (AUTO) 5.3 10^3/uL (1.7-8.2); BASOPHILS % (AUTO) 0.7 % (0-2); EOSINOPHILS % (AUTO) 2.5 % (0-6); HEMATOCRIT 33.8 % (36.0-47.0); HEMOGLOBIN 10.9 g/dL (12.0-15.5); HGB HCT DIFFERENCE -1.1; LYMPHOCYTES % (AUTO) 13.6 % (13-45); MEAN CORPUSCULAR HEMOGLOBIN 26.3 pg (27.0-33.4); MEAN CORPUSCULAR HGB CONC 32.4 g/dL (32.0-36.0); MEAN CORPUSCULAR VOLUME 81 fl (80-97); MONOCYTES % (AUTO) 7.3 % (3-13); RED BLOOD COUNT 4.16 10^6/uL (3.72-5.28); RED CELL DISTRIBUTION WIDTH 15.1 % (11.5-14.0); SEGMENTED NEUTROPHILS % (AUTO) 75.9 % (42-78)
[2017-07-02 06:45] LABS: ALANINE AMINOTRANSFERASE 19 U/L (9-52); ALBUMIN 3.7 g/dL (3.5-5.0); ALKALINE PHOSPHATASE 117 U/L (38-126); ANION GAP 8 (5-19); ASPARTATE AMINO TRANSFERASE 15 U/L (14-36); BILIRUBIN,DIRECT 0.3 mg/dL (0.0-0.4); BILIRUBIN,TOTAL 0.9 mg/dL (0.2-1.3); BLOOD UREA NITROGEN 24 mg/dL (7-20); CARBON DIOXIDE 33 mmol/L (22-30); CHLORIDE 96 mmol/L (98-107); CHOLESTEROL 112.71 mg/dL (0-200); CREATININE RESULT 0.74 mg/dL (0.52-1.25); Direct HDL 44 mg/dL (>40); GLUCOSE 138 mg/dL (75-110); SODIUM 137.4 mmol/L (137-145); TOTAL PROTEIN 6.6 g/dL (6.3-8.2); TRIGLYCERIDES 105 mg/dL (<150)
[2017-07-02 06:56] LABS: DIRECT LDL 37 mg/dL (<100)
[2017-07-02] MEDS ORDERED: DONEPEZIL HCL 5 MG TABLET PO SCH (10:00)
[2017-07-02] MEDS ORDERED: LANSOPRAZOLE 30 MG TAB.RAP.DR PO ONE (10:00)
[2017-07-02] MEDS ORDERED: VALSARTAN 160 MG TABLET PO SCH (10:00)
--- NOTE | 2017-07-02 10:13 | Physician Advisory Note ---
Physician Advisor ProgressNote .: Pursuant to the plan for [facility], I have reviewed the medical record for this patient. Physician Advisor Statement: Please consider documenting, if you agree: 1. "Chronic hypercarbic respiratory failure" (pCO2 48 w/nl pH ...) 2. What is being tx'd with O2? (It looks like nurses are giving O2. If attending doesn't order the O2 & document a reason/concern, it "doesn't count" per insurers.) - Were the 75% O2 sat on RA on 07/01 at 06:59, & O2 sat only 93 % despite 3L O2 on 07/02 at 03:09, accurate? - Is this from undx'd NANCY, or .... ? - If there is labored breathing/accessory muscle use along with hypoxemia episodes (document it!): "Acute Hypoxemic Respiratory FAilure" STatus: [employer] pt approp'ly brought in as Outpt Obs for bradycardia of unclear cause & LUE pains. If attending becomes concerned for serious clinical issue requiring ongoing hospital care/monitoring, please document it explicitly, & case will be re- assessed for potential for Inpatient conversion. Thanks! CK
[2017-07-02] MEDS: ENOXAPARIN SODIUM INJ 40 MG/0.4 ML DISP.SYRIN SUBCUT SCH (10:43)
[2017-07-02] MEDS: VALSARTAN 160 MG TABLET PO SCH (10:45)
[2017-07-02] MEDS: SERTRALINE HCL 50 MG TABLET PO SCH (10:46)
[2017-07-02] MEDS: HYDROCHLOROTHIAZIDE 25 MG TABLET PO SCH (10:47)
[2017-07-02] MEDS: AMLODIPINE BESYLATE 5 MG TABLET PO SCH (10:47)
[2017-07-02] MEDS: INSULIN LISPRO 100 UNIT/ML 3 ML VIAL SUBCUT PRN ×3 (12:52→22:02)
--- NOTE | 2017-07-02 19:30 | PDOC PROGRESS REPORT ---
Subjective Progress Note for:: 07/02/17 Subjective:: Patient reported resolution of her left upper extremity pain. No chest pain, orthopnea, PND, or palpitation. She denied use of supplemental oxygen at home. Appetite is fair but there is some degree of dislike of hospital food and presentation. No fever or chills. Physical Exam Vital Signs: Temp Pulse Resp BP Pulse Ox 98.1 F 45 L 20 116/42 L 94 07/02/17 16:00 07/02/17 16:00 07/02/17 16:00 07/02/17 16:00 07/02/17 16:00 Intake & Output 07/01/17 07/02/17 07/03/17 06:59 06:59 06:59 Intake Total 1216 813 Output Total 100 400 Balance 1116 413 Weight 93.9 kg General appearance: PRESENT: no acute distress, cooperative, obese Head exam: PRESENT: atraumatic, normocephalic Eye exam: PRESENT: conjunctiva pink, EOMI, PERRLA. ABSENT: scleral icterus Mouth exam: PRESENT: moist Respiratory exam: PRESENT: clear to auscultation merna Cardiovascular exam: PRESENT: RRR. ABSENT: diastolic murmur, rubs, systolic murmur Vascular exam: ABSENT: pallor GI/Abdominal exam: PRESENT: normal bowel sounds, soft. ABSENT: distended, guarding, mass, organolmegaly, rebound, tenderness Extremities exam: ABSENT: pedal edema Musculoskeletal exam: PRESENT: normal inspection Neurological exam: PRESENT: alert, awake, oriented to person, oriented to place , oriented to time, oriented to situation, CN II-XII grossly intact. ABSENT: motor sensory deficit Psychiatric exam: PRESENT: appropriate affect, normal mood. ABSENT: homicidal ideation, suicidal ideation Skin exam: PRESENT: dry, intact, warm. ABSENT: cyanosis, rash Results Laboratory Results: 07/02/17 06:07 07/02/17 06:07 07/02/17 07/02/17 06:07 06:07 WBC 7.0 RBC 4.16 Hgb 10.9 L Hct 33.8 L MCV 81 MCH 26.3 L MCHC 32.4 RDW 15.1 H Plt Count 200 Seg Neutrophils % 75.9 Lymphocytes % 13.6 Monocytes % 7.3 Eosinophils % 2.5 Basophils % 0.7 Absolute Neutrophils 5.3 Absolute Lymphocytes 1.0 Absolute Monocytes 0.5 Absolute Eosinophils 0.2 Absolute Basophils 0.1 Sodium 137.4 Potassium 4.0 Chloride 96 L Carbon Dioxide 33 H Anion Gap 8 BUN 24 H Creatinine 0.74 Est GFR ( Amer) > 60 Est GFR (Non-Af Amer) > 60 Glucose 138 H Calcium 9.0 Total Bilirubin 0.9 AST 15 ALT 19 Alkaline Phosphatase 117 Total Protein 6.6 Albumin 3.7 Triglycerides 105 Cholesterol 112.71 LDL Cholesterol Direct 37 VLDL Cholesterol 21.0 HDL Cholesterol 44 07/01/17 07/01/17 07/01/17 07:30 07:30 15:07 Creatine Kinase 36 41 CK-MB (CK-2) 1.44 Troponin I 0.037 NT-Pro-B Natriuret Pep 07/01/17 07/01/17 07/01/17 15:07 18:47 18:55 Creatine Kinase 39 CK-MB (CK-2) 1.59 1.61 Troponin I 0.036 0.032 NT-Pro-B Natriuret Pep 07/02/17 06:07 Creatine Kinase CK-MB (CK-2) Troponin I NT-Pro-B Natriuret Pep 869 H Impressions: Chest X-Ray 07/01/17 02:26 IMPRESSION: No acute radiographic finding in the chest. Assessment & Plan - Diagnosis (1) Left arm pain Is this a current diagnosis for this admission?: Yes Plan: Less likely cardiac. Patient did ruled out for ACS with serial cardiac enzymes. Possibly relayed to cervical spondylosis with radiculopathy. Encourage use of proper neck pillow and support as well as posture. (2) Sinus bradycardia Is this a current diagnosis for this admission?: Yes Plan: This may be due to sick sinus syndrome. her telemetry monitoring continue to reveal bradycardia. Follow up on complete echocardiogram findings. Donepezil ( Aricept) can be cause of bradycaria as well as AV block. I will discontinue this medication on this premise. I will discontinue Amlodipine usage due to severe bradycardia. Request cardiology consultation with Dr. Merida for further input. Obtain overnight pulse oximetry monitoring off supplemental oxygen usage. (3) Chronic atrial fibrillation Is this a current diagnosis for this admission?: Yes Plan: Rate controlled presently with bradycardia. Patient was on Pradaxa therapy preadmission but son is saying that she has not been very compliant due to financial limitation and she is not agreeable to Coumadin alternative.. (4) Diabetes mellitus type 2 in obese Is this a current diagnosis for this admission?: Yes Plan: Continue current medication management. (5) HLD (hyperlipidemia) Qualifiers: Hyperlipidemia type: pure hypercholesterolemia Qualified Code(s): E78.00 - Pure hypercholesterolemia, unspecified Is this a current diagnosis for this admission?: Yes Plan: See attending physician orders. (6) HTN (hypertension) Qualifiers: Hypertension type: essential hypertension Qualified Code(s): I10 - Essential (primary) hypertension Is this a current diagnosis for this admission?: Yes Plan: Maintain on Valsartan therapy. Consider addition of diuretic if necessary for better BP control. - Time Time Spent with patient: 35 or more minutes Medications reviewed and adjusted accordingly: Yes Anticipated discharge: Home with Homehealth Within: Other - Inpatient Certification Based on my medical assessment, after consideration of the patient's comorbidities, presenting symptoms, or acuity I expect that the services needed warrant INPATIENT care.: Yes I certify that my determination is in accordance with my understanding of Medicare's requirements for reasonable and necessary INPATIENT services [42 CFR 412.3e].: Yes Medical Necessity: Need Close Monitoring Due to Risk of Patient Decompensation, Need For IV Fluids, Need For Continuous Telemetry Monitoring, Risk of Complication if Not Cared For in Hospital Post Hospital Care: D/C Hospice Volunteer Coordinator Documentation - Plan Summary Plan Summary: See attending physician orders. I will change her admission status to full admission at this time.
[2017-07-02] MEDS: ATORVASTATIN CALCIUM 40 MG TABLET PO SCH (21:15)
[2017-07-03] MEDS: LANSOPRAZOLE 30 MG TAB.RAP.DR PO SCH (05:11)
[2017-07-03 07:13] LABS: ABSOLUTE EOSINOPHILS # (AUTO) 0.2 10^3/uL (0.0-0.6); ABSOLUTE LYMPHOCYTES (AUTO) 1.1 10^3/uL (0.5-4.7); ABSOLUTE MONOCYTES (AUTO) 0.6 10^3/uL (0.1-1.4); ABSOLUTE NEUT (AUTO) 5.6 10^3/uL (1.7-8.2); BASOPHILS % (AUTO) 0.6 % (0-2); EOSINOPHILS % (AUTO) 2.2 % (0-6); HEMATOCRIT 32.3 % (36.0-47.0); HEMOGLOBIN 10.7 g/dL (12.0-15.5); HGB HCT DIFFERENCE -0.2; LYMPHOCYTES % (AUTO) 14.4 % (13-45); MEAN CORPUSCULAR HEMOGLOBIN 26.9 pg (27.0-33.4); MEAN CORPUSCULAR HGB CONC 33.1 g/dL (32.0-36.0); MEAN CORPUSCULAR VOLUME 81 fl (80-97); MONOCYTES % (AUTO) 7.6 % (3-13); RED BLOOD COUNT 3.98 10^6/uL (3.72-5.28); RED CELL DISTRIBUTION WIDTH 14.9 % (11.5-14.0); SEGMENTED NEUTROPHILS % (AUTO) 75.2 % (42-78); WHITE BLOOD COUNT 7.4 10^3/uL (4.0-10.5)
[2017-07-03 07:33] LABS: ALANINE AMINOTRANSFERASE 19 U/L (9-52); ALBUMIN 3.3 g/dL (3.5-5.0); ALKALINE PHOSPHATASE 115 U/L (38-126); ANION GAP 10 (5-19); ASPARTATE AMINO TRANSFERASE 12 U/L (14-36); BILIRUBIN,DIRECT 0.3 mg/dL (0.0-0.4); BILIRUBIN,TOTAL 0.6 mg/dL (0.2-1.3); BLOOD UREA NITROGEN 29 mg/dL (7-20); CARBON DIOXIDE 29 mmol/L (22-30); CHLORIDE 97 mmol/L (98-107); CREATININE RESULT 0.93 mg/dL (0.52-1.25); GLUCOSE 296 mg/dL (75-110); POTASSIUM 4.1 mmol/L (3.6-5.0); SODIUM 136.1 mmol/L (137-145); TOTAL PROTEIN 6.1 g/dL (6.3-8.2)
[2017-07-03] MEDS: ENOXAPARIN SODIUM INJ 40 MG/0.4 ML DISP.SYRIN SUBCUT SCH (10:31)
[2017-07-03] MEDS: SERTRALINE HCL 50 MG TABLET PO SCH (10:33)
[2017-07-03] MEDS: HYDROCHLOROTHIAZIDE 25 MG TABLET PO SCH (10:33)
[2017-07-03] MEDS: VALSARTAN 160 MG TABLET PO SCH (10:33)
[2017-07-03] MEDS: AMLODIPINE BESYLATE 5 MG TABLET PO SCH (10:33)
[2017-07-03] MEDS: INSULIN LISPRO 100 UNIT/ML 3 ML VIAL SUBCUT PRN ×2 (14:13→23:43)
--- NOTE | 2017-07-03 18:44 | PDOC PROGRESS REPORT ---
Subjective Progress Note for:: 07/03/17 Subjective:: Patient reported resolution of her left upper extremity pain. No chest pain, orthopnea, PND, or palpitation. She denied use of supplemental oxygen at home. Appetite is fair but there is some degree of dislike of hospital food and presentation. No fever or chills. Patient reported vulva itching similar to prior yeast infection. She denied any significant symptoms. Physical Exam Vital Signs: Temp Pulse Resp BP Pulse Ox 97.3 F 62 19 140/40 H 90 L 07/03/17 15:19 07/03/17 15:19 07/03/17 15:19 07/03/17 15:19 07/03/17 15:19 Pulse Oximeter Nocturnal Start: 07/02/17 19: 30 Freq: RTQ4 Status: Complete Document 07/03/17 04:00 STI (Rec: 07/03/17 05:18 [email or web address] [email or web address]) Nocturnal Pulse Oximetry Equipment Usage Equipment in Use Oxygen Delivery Method (includes room Room Air air) O2 Sat by Pulse Oximetry (92-100) 94 Continuous SpO2 Machine # [id number] Intake & Output 07/02/17 07/03/17 07/04/17 06:59 06:59 06:59 Intake Total 325 237 Output Total 400 Balance -75 237 Weight 94.9 kg Physical Exam: General appearance: PRESENT: no acute distress, cooperative, obese Head exam: PRESENT: atraumatic, normocephalic Eye exam: PRESENT: conjunctiva pink, EOMI, PERRLA. ABSENT: scleral icterus Mouth exam: PRESENT: moist Respiratory exam: PRESENT: clear to auscultation merna Cardiovascular exam: PRESENT: RRR. ABSENT: diastolic murmur, rubs, systolic murmur Vascular exam: ABSENT: pallor GI/Abdominal exam: PRESENT: normal bowel sounds, soft. ABSENT: distended, guarding, mass, organomegaly, rebound, tenderness Extremities exam: ABSENT: pedal edema Musculoskeletal exam: PRESENT: normal inspection Neurological exam: PRESENT: alert, awake, oriented to person, oriented to place , oriented to time, oriented to situation, CN II-XII grossly intact. ABSENT: motor sensory deficit Psychiatric exam: PRESENT: appropriate affect, normal mood. ABSENT: homicidal ideation, suicidal ideation Skin exam: PRESENT: dry, intact, warm. ABSENT: cyanosis, rash Results Laboratory Results: 07/03/17 06:26 07/03/17 06:26 07/03/17 07/03/17 06:26 06:26 WBC 7.4 RBC 3.98 Hgb 10.7 L Hct 32.3 L MCV 81 MCH 26.9 L MCHC 33.1 RDW 14.9 H Plt Count 191 Seg Neutrophils % 75.2 Lymphocytes % 14.4 Monocytes % 7.6 Eosinophils % 2.2 Basophils % 0.6 Absolute Neutrophils 5.6 Absolute Lymphocytes 1.1 Absolute Monocytes 0.6 Absolute Eosinophils 0.2 Absolute Basophils 0.0 Sodium 136.1 L Potassium 4.1 Chloride 97 L Carbon Dioxide 29 Anion Gap 10 BUN 29 H Creatinine 0.93 Est GFR ( Amer) > 60 Est GFR (Non-Af Amer) 58 L Glucose 296 H Calcium 9.0 Total Bilirubin 0.6 AST 12 L ALT 19 Alkaline Phosphatase 115 Total Protein 6.1 L Albumin 3.3 L 07/03/17 06:26 NT-Pro-B Natriuret Pep 679 H Impressions: Chest X-Ray 07/01/17 02:26 IMPRESSION: No acute radiographic finding in the chest. Assessment & Plan - Diagnosis (1) Left arm pain Is this a current diagnosis for this admission?: Yes (2) Sinus bradycardia Is this a current diagnosis for this admission?: Yes (3) Chronic atrial fibrillation Is this a current diagnosis for this admission?: Yes (4) Diabetes mellitus type 2 in obese Is this a current diagnosis for this admission?: Yes (5) HLD (hyperlipidemia) Qualifiers: Hyperlipidemia type: pure hypercholesterolemia Qualified Code(s): E78.00 - Pure hypercholesterolemia, unspecified Is this a current diagnosis for this admission?: Yes (6) HTN (hypertension) Qualifiers: Hypertension type: essential hypertension Qualified Code(s): I10 - Essential (primary) hypertension Is this a current diagnosis for this admission?: Yes (7) Yeast vaginitis Is this a current diagnosis for this admission?: Yes Plan: See attending physician orders. - Time Time Spent with patient: 25-34 minutes Medications reviewed and adjusted accordingly: Yes Anticipated discharge: Home with Homehealth Within: Other - Inpatient Certification Based on my medical assessment, after consideration of the patient's comorbidities, presenting symptoms, or acuity I expect that the services needed warrant INPATIENT care.: Yes I certify that my determination is in accordance with my understanding of Medicare's requirements for reasonable and necessary INPATIENT services [42 CFR 412.3e].: Yes Medical Necessity: Need Close Monitoring Due to Risk of Patient Decompensation, Need For IV Fluids, Need For Continuous Telemetry Monitoring, Risk of Complication if Not Cared For in Hospital Post Hospital Care: D/C Deicer Repairer Documentation - Plan Summary Plan Summary: I discussed case with Dr Merida, who is not physically available but remotely reviewed patient chart. She continue to demonstrate persistent bradycardia. I will request cardiology consultation with Dr Lucien Flores for input into her continue management.
[2017-07-03] MEDS: FLUCONAZOLE 100 MG TABLET PO SCH (19:02)
[2017-07-03] MEDS: ATORVASTATIN CALCIUM 40 MG TABLET PO SCH (21:30)
[2017-07-04] MEDS: LANSOPRAZOLE 30 MG TAB.RAP.DR PO SCH (05:38)
[2017-07-04 05:56] LABS: ABSOLUTE BASOPHILS # (AUTO) 0.1 10^3/uL (0.0-0.2); ABSOLUTE EOSINOPHILS # (AUTO) 0.1 10^3/uL (0.0-0.6); ABSOLUTE MONOCYTES (AUTO) 0.5 10^3/uL (0.1-1.4); ABSOLUTE NEUT (AUTO) 5.6 10^3/uL (1.7-8.2); BASOPHILS % (AUTO) 0.9 % (0-2); EOSINOPHILS % (AUTO) 1.9 % (0-6); HEMATOCRIT 35.1 % (36.0-47.0); HEMOGLOBIN 11.4 g/dL (12.0-15.5); HGB HCT DIFFERENCE -0.9; LYMPHOCYTES % (AUTO) 13.9 % (13-45); MEAN CORPUSCULAR HEMOGLOBIN 26.3 pg (27.0-33.4); MEAN CORPUSCULAR HGB CONC 32.3 g/dL (32.0-36.0); MEAN CORPUSCULAR VOLUME 81 fl (80-97); MONOCYTES % (AUTO) 7.2 % (3-13); RED BLOOD COUNT 4.32 10^6/uL (3.72-5.28); RED CELL DISTRIBUTION WIDTH 15.3 % (11.5-14.0); SEGMENTED NEUTROPHILS % (AUTO) 76.1 % (42-78); WHITE BLOOD COUNT 7.4 10^3/uL (4.0-10.5)
[2017-07-04 06:09] LABS: ALANINE AMINOTRANSFERASE 21 U/L (9-52); ALKALINE PHOSPHATASE 126 U/L (38-126); ANION GAP 13 (5-19); ASPARTATE AMINO TRANSFERASE 15 U/L (14-36); BILIRUBIN,DIRECT 0.4 mg/dL (0.0-0.4); BILIRUBIN,TOTAL 0.7 mg/dL (0.2-1.3); BLOOD UREA NITROGEN 35 mg/dL (7-20); CALCIUM 9.5 mg/dL (8.4-10.2); CARBON DIOXIDE 29 mmol/L (22-30); CHLORIDE 97 mmol/L (98-107); CREATININE RESULT 0.92 mg/dL (0.52-1.25); GLUCOSE 195 mg/dL (75-110); POTASSIUM 4.4 mmol/L (3.6-5.0); SODIUM 138.8 mmol/L (137-145); TOTAL PROTEIN 7.1 g/dL (6.3-8.2)
[2017-07-04] MEDS: INSULIN LISPRO 100 UNIT/ML 3 ML VIAL SUBCUT PRN ×4 (08:17→22:28)
[2017-07-04] MEDS: ENOXAPARIN SODIUM INJ 40 MG/0.4 ML DISP.SYRIN SUBCUT SCH (11:10)
[2017-07-04] MEDS: SERTRALINE HCL 50 MG TABLET PO SCH (11:10)
[2017-07-04] MEDS: HYDROCHLOROTHIAZIDE 25 MG TABLET PO SCH (11:10)
[2017-07-04] MEDS: AMLODIPINE BESYLATE 5 MG TABLET PO SCH (11:10)
[2017-07-04] MEDS: VALSARTAN 160 MG TABLET PO SCH (11:11)
[2017-07-04] MEDS ORDERED: CARBOXYMETHYLCELLULOSE SOD 0.5% 0.4 ML DROPERETTE OU PRN (12:27)
[2017-07-04] MEDS: FLUCONAZOLE 100 MG TABLET PO SCH (18:02)
--- NOTE | 2017-07-04 19:19 | PDOC PROGRESS REPORT ---
Subjective Progress Note for:: 07/04/17 Subjective:: Patient reported no chest pain or pain in left upper extremity (arm). No orthopnea, PND, or palpitation. No fever or chills. No nausea, vomiting or abdominal pain. Her registered nurse cardiac telemetry continue to demonstrate bradycardia even when awake but worsen with sleep. She does have history of NANCY but without CPAP machine due to noncompliance with usage and was retrieved from her. Physical Exam Vital Signs: Temp Pulse Resp BP Pulse Ox 98.3 F 50 L 19 146/55 H 92 07/04/17 15:13 07/04/17 15:13 07/04/17 15:13 07/04/17 15:13 07/04/17 15:13 Pulse Oximeter Nocturnal Start: 07/02/17 19: 30 Freq: RTQ4 Status: Complete Document 07/03/17 04:00 STI (Rec: 07/03/17 05:18 [email or web address] [email or web address]) Nocturnal Pulse Oximetry Equipment Usage Equipment in Use Oxygen Delivery Method (includes room Room Air air) O2 Sat by Pulse Oximetry (92-100) 94 Continuous SpO2 Machine # [id number] Intake & Output 07/03/17 07/04/17 07/05/17 06:59 06:59 06:59 Intake Total 325 796 935 Output Total 400 Balance -75 796 935 Weight 94.9 kg 94.5 kg Physical Exam: General appearance: PRESENT: no acute distress, cooperative, obese Head exam: PRESENT: atraumatic, normocephalic Eye exam: PRESENT: conjunctiva pink, EOMI, PERRLA. ABSENT: scleral icterus Mouth exam: PRESENT: moist Respiratory exam: PRESENT: clear to auscultation merna Cardiovascular exam: PRESENT: RRR. ABSENT: diastolic murmur, rubs, systolic murmur Vascular exam: ABSENT: pallor GI/Abdominal exam: PRESENT: normal bowel sounds, soft. ABSENT: distended, guarding, mass, organomegaly, rebound, tenderness Extremities exam: ABSENT: pedal edema Musculoskeletal exam: PRESENT: normal inspection Neurological exam: PRESENT: alert, awake, oriented to person, oriented to place , oriented to time, oriented to situation, CN II-XII grossly intact. ABSENT: motor sensory deficit Psychiatric exam: PRESENT: appropriate affect, normal mood. ABSENT: homicidal ideation, suicidal ideation Skin exam: PRESENT: dry, intact, warm. ABSENT: cyanosis, rash Results Laboratory Results: 07/04/17 05:16 07/04/17 05:16 07/04/17 07/04/17 05:16 05:16 WBC 7.4 RBC 4.32 Hgb 11.4 L Hct 35.1 L MCV 81 MCH 26.3 L MCHC 32.3 RDW 15.3 H Plt Count 224 Seg Neutrophils % 76.1 Lymphocytes % 13.9 Monocytes % 7.2 Eosinophils % 1.9 Basophils % 0.9 Absolute Neutrophils 5.6 Absolute Lymphocytes 1.0 Absolute Monocytes 0.5 Absolute Eosinophils 0.1 Absolute Basophils 0.1 Sodium 138.8 Potassium 4.4 Chloride 97 L Carbon Dioxide 29 Anion Gap 13 BUN 35 H Creatinine 0.92 Est GFR ( Amer) > 60 Est GFR (Non-Af Amer) 58 L Glucose 195 H Calcium 9.5 Total Bilirubin 0.7 AST 15 ALT 21 Alkaline Phosphatase 126 Total Protein 7.1 Albumin 4.0 07/03/17 07/04/17 06:26 05:16 NT-Pro-B Natriuret Pep 679 H 1040 H Impressions: Chest X-Ray 07/01/17 02:26 IMPRESSION: No acute radiographic finding in the chest. Assessment & Plan - Diagnosis (1) Left arm pain Is this a current diagnosis for this admission?: Yes (2) Sinus bradycardia Is this a current diagnosis for this admission?: Yes Plan: Cardiology service have been very limited in availability due to personal illness and conferences demand. I will request service of Dr Liu for cardiology consultation tomorrow and this may be a better fit in view of her need for sleep disorder management. (3) Chronic atrial fibrillation Is this a current diagnosis for this admission?: Yes (4) Diabetes mellitus type 2 in obese Is this a current diagnosis for this admission?: Yes (5) HLD (hyperlipidemia) Qualifiers: Hyperlipidemia type: pure hypercholesterolemia Qualified Code(s): E78.00 - Pure hypercholesterolemia, unspecified Is this a current diagnosis for this admission?: Yes (6) HTN (hypertension) Qualifiers: Hypertension type: essential hypertension Qualified Code(s): I10 - Essential (primary) hypertension Is this a current diagnosis for this admission?: Yes (7) Yeast vaginitis Is this a current diagnosis for this admission?: Yes (8) Obstructive sleep apnea of adult Is this a current diagnosis for this admission?: Yes Plan: She will be on trial CPAP therapy for management in view of her associated bradycardia. - Time Time Spent with patient: 25-34 minutes Medications reviewed and adjusted accordingly: Yes Anticipated discharge: Home with Homehealth Within: Other - Inpatient Certification Based on my medical assessment, after consideration of the patient's comorbidities, presenting symptoms, or acuity I expect that the services needed warrant INPATIENT care.: Yes I certify that my determination is in accordance with my understanding of Medicare's requirements for reasonable and necessary INPATIENT services [42 CFR 412.3e].: Yes Medical Necessity: Need Close Monitoring Due to Risk of Patient Decompensation, Need For Continuous Telemetry Monitoring, Risk of Complication if Not Cared For in Hospital Post Hospital Care: D/C Thermodynamicist Documentation - Plan Summary Plan Summary: See attending physician orders. Her overnight pulse oximetry on room air did not support need for supplemental oxygen.
[2017-07-04] MEDS: ATORVASTATIN CALCIUM 40 MG TABLET PO SCH (20:53)
[2017-07-05] MEDS: LANSOPRAZOLE 30 MG TAB.RAP.DR PO SCH (06:28)
[2017-07-05] MEDS: INSULIN LISPRO 100 UNIT/ML 3 ML VIAL SUBCUT PRN ×3 (08:17→22:36)
--- NOTE | 2017-07-05 08:37 | PDOC PROGRESS REPORT ---
Subjective Progress Note for:: 07/05/17 Subjective:: No chest pain, orthopnea, PND, or palpitation. Patient did use CPAP support over night with moment of improvement in her heart rate up to 70/min. She is a very reluctant user of this device in the past. No fever or chills. No nausea, vomiting or abdominal pain. There was reported episode of visual hallucination overnight about a man in her room pulling on her legs! Physical Exam Vital Signs: Temp Pulse Resp BP Pulse Ox 97.5 F 61 19 191/69 H 97 07/05/17 07:31 07/05/17 07:31 07/05/17 07:31 07/05/17 07:31 07/05/17 07:31 Pulse Oximeter Nocturnal Start: 07/02/17 19: 30 Freq: RTQ4 Status: Complete Document 07/03/17 04:00 [facility] (Rec: 07/03/17 05:18 [email or web address] [email or web address]) Nocturnal Pulse Oximetry Equipment Usage Equipment in Use Oxygen Delivery Method (includes room Room Air air) O2 Sat by Pulse Oximetry (92-100) 94 Continuous SpO2 Machine # [id number] Intake & Output 07/04/17 07/05/17 07/06/17 06:59 06:59 06:59 Intake Total 796 1445 Output Total 250 Balance 796 1195 Weight 94.5 kg 94 kg Physical Exam: General appearance: PRESENT: no acute distress, cooperative, obese Head exam: PRESENT: atraumatic, normocephalic Eye exam: PRESENT: conjunctiva pink, EOMI, PERRLA. ABSENT: scleral icterus Mouth exam: PRESENT: moist Respiratory exam: PRESENT: clear to auscultation merna Cardiovascular exam: PRESENT: RRR. ABSENT: diastolic murmur, rubs, systolic murmur Vascular exam: ABSENT: pallor GI/Abdominal exam: PRESENT: normal bowel sounds, soft. ABSENT: distended, guarding, mass, organomegaly, rebound, tenderness Extremities exam: ABSENT: pedal edema Musculoskeletal exam: PRESENT: normal inspection Neurological exam: PRESENT: alert, awake, oriented to person, oriented to place , oriented to time, oriented to situation, CN II-XII grossly intact. ABSENT: motor sensory deficit Psychiatric exam: PRESENT: appropriate affect, normal mood. ABSENT: homicidal ideation, suicidal ideation Skin exam: PRESENT: dry, intact, warm. ABSENT: cyanosis, rash Results Laboratory Results: 07/04/17 05:16 07/04/17 05:16 07/03/17 07/04/17 06:26 05:16 NT-Pro-B Natriuret Pep 679 H 1040 H Impressions: Chest X-Ray 07/01/17 02:26 IMPRESSION: No acute radiographic finding in the chest. Assessment & Plan - Diagnosis (1) Left arm pain Is this a current diagnosis for this admission?: Yes (2) Sinus bradycardia Is this a current diagnosis for this admission?: Yes (3) Chronic atrial fibrillation Is this a current diagnosis for this admission?: Yes (4) Diabetes mellitus type 2 in obese Is this a current diagnosis for this admission?: Yes (5) HLD (hyperlipidemia) Qualifiers: Hyperlipidemia type: pure hypercholesterolemia Qualified Code(s): E78.00 - Pure hypercholesterolemia, unspecified Is this a current diagnosis for this admission?: Yes (6) HTN (hypertension) Qualifiers: Hypertension type: essential hypertension Qualified Code(s): I10 - Essential (primary) hypertension Is this a current diagnosis for this admission?: Yes (7) Yeast vaginitis Is this a current diagnosis for this admission?: Yes (8) Obstructive sleep apnea of adult Is this a current diagnosis for this admission?: Yes - Time Time Spent with patient: 25-34 minutes Medications reviewed and adjusted accordingly: Yes Anticipated discharge: Home with Homehealth Within: Other - Inpatient Certification Based on my medical assessment, after consideration of the patient's comorbidities, presenting symptoms, or acuity I expect that the services needed warrant INPATIENT care.: Yes I certify that my determination is in accordance with my understanding of Medicare's requirements for reasonable and necessary INPATIENT services [42 CFR 412.3e].: Yes Medical Necessity: Need Close Monitoring Due to Risk of Patient Decompensation, Need For Continuous Telemetry Monitoring, Risk of Complication if Not Cared For in Hospital Post Hospital Care: D/C Pocketed [employer]sembler Documentation - Plan Summary Plan Summary: Cancel consultation with Dr Liu for unavailability. Start on Starlix 60 mg po tid with meals for diabetes mellitus management. Continue current management plan with use of CPAP machine while sleeping.
[2017-07-05] MEDS: ENOXAPARIN SODIUM INJ 40 MG/0.4 ML DISP.SYRIN SUBCUT SCH (09:28)
[2017-07-05] MEDS: AMLODIPINE BESYLATE 5 MG TABLET PO SCH ×2 (09:29→21:30)
[2017-07-05] MEDS: SERTRALINE HCL 50 MG TABLET PO SCH (09:29)
[2017-07-05] MEDS: FLUCONAZOLE 100 MG TABLET PO SCH (09:29)
[2017-07-05] MEDS: VALSARTAN 160 MG TABLET PO SCH (09:29)
[2017-07-05] MEDS: NATEGLINIDE 60 MG TABLET PO SCH ×2 (10:04→17:06)
[2017-07-05] MEDS ORDERED: HYDRALAZINE HCL 25 MG TABLET PO ONE (12:00)
[2017-07-05] MEDS: ATORVASTATIN CALCIUM 40 MG TABLET PO SCH (21:30)
[2017-07-06] MEDS: LANSOPRAZOLE 30 MG TAB.RAP.DR PO SCH (06:32)
[2017-07-06] MEDS: NATEGLINIDE 60 MG TABLET PO SCH ×3 (08:16→16:41)
[2017-07-06] MEDS: INSULIN LISPRO 100 UNIT/ML 3 ML VIAL SUBCUT PRN ×3 (08:16→16:40)
[2017-07-06] MEDS: VALSARTAN 160 MG TABLET PO SCH (09:41)
[2017-07-06] MEDS: SERTRALINE HCL 50 MG TABLET PO SCH (09:41)
[2017-07-06] MEDS: FLUCONAZOLE 100 MG TABLET PO SCH (09:41)
[2017-07-06] MEDS: AMLODIPINE BESYLATE 5 MG TABLET PO SCH (09:42)
[2017-07-06] MEDS: ENOXAPARIN SODIUM INJ 40 MG/0.4 ML DISP.SYRIN SUBCUT SCH (09:42)
--- NOTE | 2017-07-06 09:59 | XCELERA REPORT ---
[address] [address] Transthoracic Echocardiogram Report Name: RAJWINDER BOONE Age: 82 yrs Gender: Female : 1935 Patient Status: Inpatient Patient Location: [address] [place] [address] Study Date: 07/02/2017 09:11 AM Height: 66 in Weight: 207 lb BSA: 2.0 m2 Procedure: A complete two-dimensional transthoracic echocardiogram was performed (2D, M-mode, spectral and color flow Doppler). The study was technically difficult with many images being suboptimal in quality. Reason For Study: elevated BNP Ordering Physician: MIRIAM TATE Performed By: Kaye [place] Interpretation Summary The left ventricular ejection fraction is within normal limits. Doppler measurements suggest pseudonormalized left ventricular relaxation, which is associated with grade II/IV or mild to moderate diastolic dysfunction There is mild concentric left ventricular hypertrophy. The left ventricle is grossly normal size. Wall motion cannot be accurately commented on, but no definite regional wall motion abnormalities noted. The right ventricle is mildly dilated. The right ventricular systolic function is normal. The right atrium is mildly dilated. The left atrium is moderately dilated. There is a mild to moderate amount of mitral regurgitation There is no mitral valve stenosis. There is no aortic valve stenosis No aortic regurgitation is present. There is a mild to moderate amount of tricuspid regurgitation Right ventricular systolic pressure is estimated to be elevated at 50- 60mmHg. There is moderate pulmonary hypertension by echo The aortic root is not well visualized but is probably normal size. The inferior vena cava appeared normal and decreased > 50% with respiration (RAP 5-10 mmHg) There is no pericardial effusion. MMode/2D Measurements & Calculations RVDd: 3.3 cm LVIDd: 4.3 cm FS: 36.4 % Ao root diam: 3.0 cm IVSd: 1.3 cm LVIDs: 2.7 cm EDV(Teich): 82.6 ml LVPWd: 1.2 cm ESV(Teich): 27.7 ml Ao root area: 7.2 cm2 EF(Teich): 66.4 % LVOT diam: 1.9 cm LVOT area: 2.7 cm2 Doppler Measurements & Calculations MV E max ganesh: MV dec slope: Ao V2 max: LV V1 max P.7 cm/sec 641.9 cm/sec2 163.9 cm/sec 4.0 mmHg MV A max ganesh: MV dec time: Ao max PG: LV V1 max: 51.1 cm/sec 0.22 sec 10.7 mmHg 100.1 cm/sec MV E/A: 2.7 ARIA(V,D): 1.6 cm2 PA V2 max: PI end-d ganesh: TR max ganesh: 92.6 cm/sec 149.4 cm/sec 349.6 cm/sec PA max P.4 mmHg TR max P.1 mmHg Left Ventricle The left ventricle is grossly normal size. There is mild concentric left ventricular hypertrophy. The left ventricular ejection fraction is within normal limits. Doppler measurements suggest pseudonormalized left ventricular relaxation, which is associated with grade II/IV or mild to moderate diastolic dysfunction. Wall motion cannot be accurately commented on, but no definite regional wall motion abnormalities noted. Right Ventricle The right ventricle is mildly dilated. There is normal right ventricular wall thickness. The right ventricular systolic function is normal. Atria The right atrium is mildly dilated. The left atrium is moderately dilated. Interarterial septum not well visualized and not well dopplered. Cannot comment on ASD/PFO presence. Mitral Valve There is mild mitral leaflet calcification. There is mild mitral annular calcification. There is no mitral valve stenosis. There is a mild to moderate amount of mitral regurgitation. Aortic Valve The aortic valve is sclerotic, but shows no functional abnormality. There is no aortic valve stenosis. No aortic regurgitation is present. Tricuspid Valve The tricuspid valve is not well visualized, but is grossly normal. There is no tricuspid stenosis. There is a mild to moderate amount of tricuspid regurgitation. Right ventricular systolic pressure is estimated to be elevated at 50-60mmHg. There is moderate pulmonary hypertension by echo. Pulmonic Valve The pulmonic valve is not well visualized. Great Vessels The aortic root is not well visualized but is probably normal size. The inferior vena cava appeared normal and decreased > 50% with respiration (RAP 5-10 mmHg). Effusions There is no pericardial effusion. : MIRIAM TATE > Rajni Liu
[2017-07-06 18:22] VITALS: BP 116/42
--- NOTE | 2017-07-06 18:39 | PDOC DISCHARGE SUMMARY ---
General - Admit/Disc Date/PCP Admission Date/Primary Care Provider: 07/02/17 19:33 JEANNETTE NEIDA Discharge Date: 07/06/17 - Discharge Diagnosis (1) Left arm pain Is this a current diagnosis for this admission?: Yes (2) Sinus bradycardia Is this a current diagnosis for this admission?: Yes (3) Chronic atrial fibrillation Is this a current diagnosis for this admission?: Yes (4) Diabetes mellitus type 2 in obese Is this a current diagnosis for this admission?: Yes (5) HLD (hyperlipidemia) Is this a current diagnosis for this admission?: Yes (6) HTN (hypertension) Is this a current diagnosis for this admission?: Yes (7) Yeast vaginitis Is this a current diagnosis for this admission?: Yes (8) Obstructive sleep apnea of adult Is this a current diagnosis for this admission?: Yes - Additional Information Discharge Diet: Diabetic Discharge Activity: Activity As Tolerated, Slowly Increase Activity Home Medications: Donepezil HCl [Aricept 5 mg Tablet] 5 mg PO DAILY 07/01/17 Hydrochlorothiazide [Hydrodiuril 25 mg Tablet] 25 mg PO DAILY 07/01/17 Rosuvastatin Calcium [Crestor 20 mg Tablet] 20 mg PO DAILY 07/01/17 Amlodipine Besylate [Norvasc 5 mg Tablet] 5 mg PO Q12 #60 tablet 07/06/17 Carboxymethylcellulose Sodium [Refresh Plus 0.5% Oph Soln 0.4 ml Droperette] 1 drop OU BIDP PRN droperette 07/06/17 Fluconazole [Diflucan 100 mg Tablet] 100 mg PO DAILY #7 tablet 07/06/17 Nateglinide [Starlix 60 mg Tablet] 60 mg PO AC #90 tablet 07/06/17 Sertraline HCl [Zoloft 50 mg Tablet] 50 mg PO DAILY #30 07/06/17 Valsartan [Diovan] 320 mg PO DAILY #30 tablet 07/06/17 History of Present Illness History of Present Illness: RAJWINDER BOONE is a 82 year old female, she has a history of type 2 diabetes mellitus, she could emergency room because of pain in the left upper extremities she denies any chest pain or shortness of breath, and emergency room she was evaluated the 12-lead EKG showed sinus bradycardia with a heart rate of in the low 30s, she was also found to have elevated BNP, because of the pain in the left upper arm, bradycardia and elevated BNP the emergency room physician is requesting hospital admission. Hospital Course Hospital Course: Patient did respond to usage of CPAP machine with improvement in her heart rate. She did maintain persistent bradycardia with rate in the upper 40's while sleeping. There is no associated chest pain. Her initial evaluation was concerning for possible CHF but her echocardiogram did revealed LVEF of about 64 % with mild to moderate diastolic dysfunction. Her NT-Pro BNP was elevated. Attempts to get cardiology consultation was abortive due to different reason. Arrangement will be made for her to see Dr. Liu on 07/09/2017. Arrangement will be made for patient to have CPAP at home for management of her Obstructive Sleep apnea with normal LVEF CHF. Adjustment was made to her anti hypertensive medication management. She was started on Starlix 60 mg p.o tid for her Diabetes Mellitus management. There is high risk for readmission with this patient due to demonstrable dementia related visual and tactile hallucination about a man touching her legs in her room. Also, there is issue with medication compliance due to financial limitation. I had extensive discussion with son regarding latter issue during this hospitalization. SHe will follow up with me in the office as instructed upon discharge. Physical Exam Vital Signs: Temp Pulse Resp BP Pulse Ox 98.0 F 74 15 116/42 L 96 07/06/17 18:16 07/06/17 18:16 07/06/17 18:16 07/06/17 18:16 07/06/17 18:16 Pulse Oximeter Nocturnal Start: 07/02/17 19: 30 Freq: RTQ4 Status: Complete Document 07/03/17 04:00 [facility] (Rec: 07/03/17 05:18 STI [email or web address]) Nocturnal Pulse Oximetry Equipment Usage Equipment in Use Oxygen Delivery Method (includes room Room Air air) O2 Sat by Pulse Oximetry (92-100) 94 Continuous SpO2 Machine # [id number] Intake & Output 07/05/17 07/06/17 07/07/17 06:59 06:59 06:59 Intake Total 1445 1401 420 Output Total 250 Balance 1195 1401 420 Weight 94 kg 94 kg Results Laboratory Results: 07/04/17 05:16 07/04/17 05:16 07/03/17 07/04/17 06:26 05:16 NT-Pro-B Natriuret Pep 679 H 1040 H Impressions: Chest X-Ray 07/01/17 02:26 IMPRESSION: No acute radiographic finding in the chest. Qualifiers PATEINT BEING DISCHARGED WITH ANY OF THE FOLLOWING DIAGNOSIS?: Heart Failure VTE patient discharged on overlapping Therapy?: Yes HF Pt being discharged on ACEI for LVEF less than 40%?: No Reason(s) for not prescribing ACEI:: Not indicated HF Pt being discharged on ARBS for LVEF less than 40%?: Yes HF Pt with Afib discharged with Warfarin?: Yes HF Pt discharged on evidence-based Beta Robbin:: No Reason(s) for not prescribing evidence-based Beta Robbin:: Medical Contraindication - severe bradycardia Plan Discharge Plan: D/C home today. Follow up in the office as instructed upon discharge and with Dr Liu for further evaluation of her cardiopulmonary issues with regard to bradycardia and Obstructive sleep apnea.
== END 2017-07-06 19:39 | disposition home or self-care (01) | DRG 556 ==
LOC: ER 02:19 → UNDOADMIN 04:15 → EH 04:15 → 3S 05:25 → EH 05:25 → INTOOBSV 06:50 → 3S 06:50 → OBSVTOIN 07-02 19:33 → 3S 07-05 18:15
PROVIDERS: ADMIT Internal Medicine Geriatric Medicine; ATTEND Internal Medicine Geriatric Medicine
PROC: 5A09357 Assistance with Respiratory Ventilation, Less than 24 Consecutive Hours, Continuous Positive Airway Pressure (ICD-10-PCS; principal; 2017-07-02)
DX: M79.602 Pain in left arm (principal); R00.1 Bradycardia, unspecified; I48.2 Chronic atrial fibrillation; E11.9 Type 2 diabetes mellitus without complications; E78.00 Pure hypercholesterolemia, unspecified; B37.3 Candidiasis of vulva and vagina; G47.33 Obstructive sleep apnea (adult) (pediatric); Z79.899 Other long term (current) drug therapy; F03.90 Unspecified dementia, unspecified severity, without behavioral disturbance, psychotic disturbance, mood disturbance, and anxiety; Z90.710 Acquired absence of both cervix and uterus; Z88.6 Allergy status to analgesic agent; Z88.5 Allergy status to narcotic agent
CPT/HCPCS: 36415; 36600; 71010; 80048; 80053; 80061; 80076; 80307; 81001; 82140; 82150; 82550; 82553; 82803; 82962; 83036; 83690; 83735; 83880; 84100; 84439; 84443; 84484; 85025; 85610; 85730; 87086; 93005; 93010; 93306; 94660; 94762; 99285; G0378; J1650; J1815; J3490

== ENCOUNTER 2017-08-01 13:45 | Inpatient (IN) | payer MEDICARE ==
--- NOTE | 2017-08-01 14:13 | ER Document Report ---
ED General - General Mode of Arrival: Medic Information source: Patient TRAVEL OUTSIDE OF THE [place] IN LAST 30 DAYS: No <PHILIP BARRETT - Last Filed: 08/01/17 15:56> <DORIS CARRERO - Last Filed: 08/01/17 18:30> - General Stated Complaint: BREATHING DIFFICULTY Time Seen by Provider: 08/01/17 14:00 Notes: Patient is an 82-year-old female that presents to the emergency department today with complaints of possible low oxygen saturation prior to arrival. Patient has Alzheimer's and so her history is not good. According to EMS, critical access hospital states that she had an oxygen saturation of 88% on room air prior to arrival today. Patient has no complaints. (PHILIP BARRETT) The patient was admitted on 07/02/2017 with bradycardia, arm pain, and elevated BNP. She had a follow-up in the office yesterday. She is supposed to be using CPAP at home, but is not on oxygen at home. Today home health nurse found her oxygen saturation at 89% on room air. EMS confirmed the pulse ox they were getting was also 89% on room air. She did have fingernail norwegian on, but when they put oxygen on her her pulse ox went up to 95 and 96%. The family reports that the patient's lower extremity edema is much worse today than it had been in the recent past. A CTA of the chest was read as pulmonary edema with basilar atelectasis. The BNP is higher today than it was during the previous admission. The patient's hemoglobin is almost 2 g lower than it was a month ago. (DORIS CARRERO) - Related Data Allergies/Adverse Reactions: codeine [Codeine] Allergy (Mild, Verified 12/04/16 04:13) unknown aspirin [Aspirin] Allergy (Verified 12/04/16 04:13) Past Medical History - General Information source: Patient - Social History Smoking Status: Never Smoker Cigarette use (# per day): No Frequency of alcohol use: None Drug Abuse: None Lives with: Family Family History: None - Past Medical History Cardiac Medical History: Reports: Hx Atrial Fibrillation, Hx Heart Attack - 2yrs ago?, Hx Hypercholesterolemia, Hx Hypertension - MEDICATION Pulmonary Medical History: Reports: Hx Bronchitis Neurological Medical History: Reports: Hx Cerebrovascular Accident - 2yrs ago ? Endocrine Medical History: Reports: Hx Diabetes Mellitus Type 2 Psychiatric Medical History: Reports: Hx Depression Past Surgical History: Reports: Hx Hysterectomy, Hx Tonsillectomy - Immunizations Hx Diphtheria, Pertussis, Tetanus Vaccination: Yes Hx Pneumococcal Vaccination: 10/22/13 <PHILIP BARRETT - Last Filed: 08/01/17 15:56> - Past Medical History Cardiac Medical History: Reports: Other - Pulmonary hypertension <DORIS CARRERO - Last Filed: 08/01/17 18:30> - Medical History Notes: Alzheimer's (PHILIP BARRETT) Review of Systems - Review of Systems -: Yes ROS unobtainable due to patient's medical condition - alzheimer's, unsure why she is here <PHILIP BARRETT - Last Filed: 08/01/17 15:56> Physical Exam <PHILIP BARRETT - Last Filed: 08/01/17 15:56> - Extremities General lower extremity: Edema <DORIS CARRERO - Last Filed: 08/01/17 18:30> - Vital signs Vitals: Temp Resp BP Pulse Ox 98.7 F 20 137/53 H 94 08/01/17 14:02 08/01/17 14:02 08/01/17 14:02 08/01/17 14:02 - Notes Notes: Physical Exam: General: Alert, appears well. HEENT: Normocephalic. Atraumatic. PERRL. Extraocular movements intact. Oropharynx clear. Neck: Supple. Non-tender. Respiratory: O2 saturation drops to 85-86% when oxygen is removed. Clear and equal breath sounds bilaterally. Cardiovascular: Regular rate and rhythm. Abdominal: Obese. Non-tender. No distension. Normal Bowel Sounds. Back: Non-tender. No deformity or step off. Extremities: Moves all four extremities. Upper extremities: Normal inspection. Normal ROM. Lower extremities: Normal inspection. No edema. Normal ROM. Neurological:Alert, oriented to person consistent with history of alzheimer's. Normal speech. Psychological: Normal affect. Normal Mood. Skin: Warm. Dry. Normal color. (PHILIP BARRETT) Course - Laboratory Result Diagrams: 08/01/17 13:57 08/01/17 13:57 <PHILIP BARRETT - Last Filed: 08/01/17 15:56> - Laboratory Result Diagrams: 08/01/17 13:57 08/01/17 13:57 - Diagnostic Test Radiology reviewed: Image reviewed, Reports reviewed - Chest x-ray showed borderline cardiomegaly without failure. There are bilateral lower lobe infiltrates versus atelectasis. There are minimal pleural effusions. CTA of the chest shows mild pulmonary edema with bibasilar atelectasis. - EKG Interpretation by Me EKG shows normal: [place], QRS Complexes. abnormal: ST-T Waves - Nonspecific lateral T abnormality Rate: Bradycardia - Heart rate is varies between 30 and 55 Rhythm: A.Fib - The patient's EKG is suspicious for atrial fibrillation. When compared to previous EKG there are: Changes noted - Consults Dr. Carrasquillo Time consulted: 17:25 Consulted provider: other - Initially is quite resistant to admitting the patient stating she just needs to use her CPAP. I explained that this is not obstructive sleep apnea, the patient is wide awake sitting up talking and her oxygen saturation dropped into the 85-86% range on room air. He then wanted a blood gas to prove that her oxygen levels were low before considering admission. This is despite the abnormal EKG, the CT scan showing pulmonary edema, the increase in peripheral edema according to the family, and the room air hypoxemia. Dr. Carrasquillo was called back after the blood gas results and he is now agreeable to admitting the patient and wants her in the IMCU. <DORIS CARRERO - Last Filed: 08/01/17 18:30> - Re-evaluation Re-evalutation: 08/01/17 18:27 The patient's hemoglobin is 9.6, 1 month ago it was 11.4 CT scan today was read as pulmonary edema. Room air blood gas shows a PCO2 of 45.7, a PO2 of 60.1 (DORIS CARRERO) - Vital Signs Vital signs: Temp Pulse Resp BP Pulse Ox 98.7 F 17 140/70 H 97 08/01/17 14:02 08/01/17 18:03 08/01/17 18:03 08/01/17 18:03 - Laboratory Laboratory results interpreted by me: 08/01/17 08/01/17 08/01/17 13:57 13:57 13:57 RBC 3.68 L Hgb 9.6 L Hct 29.5 L MCH 26.2 L RDW 15.7 H Seg Neutrophils % 79.4 H Lymphocytes % 11.5 L D-Dimer 0.63 H Carbonic Acid ABG pCO2 ABG pO2 ABG HCO3 ABG Total CO2 ABG O2 Saturation BUN 34 H Est GFR (Non-Af Amer) 56 L Glucose 139 H NT-Pro-B Natriuret Pep Urine Protein 08/01/17 08/01/17 08/01/17 13:57 17:15 17:50 RBC Hgb Hct MCH RDW Seg Neutrophils % Lymphocytes % D-Dimer Carbonic Acid 1.38 H ABG pCO2 45.7 H ABG pO2 60.1 L ABG HCO3 26.4 H ABG Total CO2 27.8 H ABG O2 Saturation 90.5 L BUN Est GFR (Non-Af Amer) Glucose NT-Pro-B Natriuret Pep 1240 H Urine Protein 30 H Discharge <PHILIP BARRETT - Last Filed: 08/01/17 15:56> - Discharge Admitting Provider: Arya Unit Admitted: IMCU <DORIS CARRERO - Last Filed: 08/01/17 18:30> - Discharge Clinical Impression: Hypoxemia, Bradycardia, Peripheral edema Dementia Qualifiers: Dementia type: Alzheimer's disease Alzheimer's disease onset: late-onset Dementia behavioral disturbance: without behavioral disturbance Qualified Code(s ): G30.1 - Alzheimer's disease with late onset Pulmonary edema Qualifiers: Chronicity: acute Qualified Code(s): J81.0 - Acute pulmonary edema Anemia Qualifiers: Anemia type: unspecified type Qualified Code(s): D64.9 - Anemia, unspecified Condition: Good Disposition: ADMITTED INPATIENT Referrals: JEANNETTE CARRASQUILLO MD [Primary Care Provider] - Follow up as needed Scribe Attestation: 08/01/17 16:10 I personally performed the services described in the documentation, reviewed and edited the documentation which was dictated to the scribe in my presence, and it accurately records my words and actions. (DORIS CARRERO) Scribe Documentation - Scribe Written by Scribe:: Zulma Mead, 08/01/2017 1600 acting as scribe for :: Flynn <PHILIP BARRETT - Last Filed: 08/01/17 15:56>
[2017-08-01 14:28] LABS: ABSOLUTE EOSINOPHILS # (AUTO) 0.1 10^3/uL (0.0-0.6); ABSOLUTE LYMPHOCYTES (AUTO) 0.9 10^3/uL (0.5-4.7); ABSOLUTE MONOCYTES (AUTO) 0.5 10^3/uL (0.1-1.4); ABSOLUTE NEUT (AUTO) 5.9 10^3/uL (1.7-8.2); BASOPHILS % (AUTO) 0.6 % (0-2); EOSINOPHILS % (AUTO) 1.4 % (0-6); HEMATOCRIT 29.5 % (36.0-47.0); HEMOGLOBIN 9.6 g/dL (12.0-15.5); HGB HCT DIFFERENCE -0.7; LYMPHOCYTES % (AUTO) 11.5 % (13-45); MEAN CORPUSCULAR HEMOGLOBIN 26.2 pg (27.0-33.4); MEAN CORPUSCULAR HGB CONC 32.7 g/dL (32.0-36.0); MEAN CORPUSCULAR VOLUME 80 fl (80-97); MONOCYTES % (AUTO) 7.1 % (3-13); RED BLOOD COUNT 3.68 10^6/uL (3.72-5.28); RED CELL DISTRIBUTION WIDTH 15.7 % (11.5-14.0); SEGMENTED NEUTROPHILS % (AUTO) 79.4 % (42-78); WHITE BLOOD COUNT 7.4 10^3/uL (4.0-10.5)
[2017-08-01 14:43] LABS: ALANINE AMINOTRANSFERASE 25 U/L (9-52); ALBUMIN 3.5 g/dL (3.5-5.0); ALKALINE PHOSPHATASE 112 U/L (38-126); ANION GAP 10 (5-19); ASPARTATE AMINO TRANSFERASE 15 U/L (14-36); BILIRUBIN,DIRECT 0.4 mg/dL (0.0-0.4); BILIRUBIN,TOTAL 0.6 mg/dL (0.2-1.3); BLOOD UREA NITROGEN 34 mg/dL (7-20); CALCIUM 9.2 mg/dL (8.4-10.2); CARBON DIOXIDE 30 mmol/L (22-30); CHLORIDE 103 mmol/L (98-107); CREATINE KINASE 52 U/L (30-135); CREATININE RESULT 0.95 mg/dL (0.52-1.25); GLUCOSE 139 mg/dL (75-110); MAGNESIUM 1.7 mg/dL (1.6-2.3); POTASSIUM 4.1 mmol/L (3.6-5.0); SODIUM 143.1 mmol/L (137-145); TOTAL PROTEIN 6.4 g/dL (6.3-8.2)
--- NOTE | 2017-08-01 15:30 | RADIOLOGY REPORT (SQ) ---
EXAM DESCRIPTION: CHEST SINGLE VIEW COMPLETED DATE/TIME: 08/01/2017 2:55 pm REASON FOR STUDY: hypoxia COMPARISON: 07/01/2017 EXAM PARAMETERS: NUMBER OF VIEWS: One view. TECHNIQUE: Single frontal radiographic view of the chest acquired. RADIATION DOSE: NA LIMITATIONS: None. FINDINGS: LUNGS AND PLEURA: There is ill-defined opacification in the lung bases. Minimal pleural e ffusions are present. MEDIASTINUM AND HILAR STRUCTURES: No masses. Contour normal. HEART AND VASCULAR STRUCTURES: Heart size is borderline. There is no pulmonary edema. BONES: No acute findings. HARDWARE: None in the chest. OTHER: No other significant finding. IMPRESSION: Borderline cardiomegaly without failure. Limited lower lobe infiltrate versus subsegmen kenneth atelectasis. Small pleural effusions. TECHNICAL DOCUMENTATION: JOB ID: [id number]
--- NOTE | 2017-08-01 17:01 | RADIOLOGY REPORT (SQ) ---
EXAM DESCRIPTION: CTA CHEST COMPLETED DATE/TIME: 08/01/2017 4:47 pm REASON FOR STUDY: elevated d-dimer, hypoxia COMPARISON: AP chest 08/01/2017 CT chest 11/01/2015, 11/03/2014, 10/01/2014, 04/07/2011 CT abdomen pelvis 09/01/2016 TECHNIQUE: CT scan of the chest performed using helical scanning technique with dynamic intravenous contrast injection. Images reviewed with lung, soft tissue and bone windows. Reconstructed coronal and sagittal MPR images reviewed. Additional 3 dimensional post-processing performed to develop Maximal Intensity Projection images (WA P). All images stored on PACS. All CT scanners at this facility use dose modulation, iterative reconstruction, and/or weight based d osing when appropriate to reduce radiation dose to as low as reasonably achievable (ALARA). [facility]: Dose Right [facility]: CareDose [facility]: Dose Right [facility]: Teradose 4D [facility]: PacketFront CONTRAST TYPE AND DOSE: contrast/concentration: Isovue 370.00 mg/ml; Total Contrast Delivered: 85.0 ml; Total Saline Delivered: 50.0 ml Contrast bolus optimized for the pulmonary arteries. Not diagnostic for the aorta. RENAL FUNCTION: Creatinine 0.95 RADIATION DOSE: Up-to-date CT equipment and radiation dose reduction techniques were employed. CTDIv ol: 29.8 - 33.1 mGy. DLP: 1045 mGy-cm. . LIMITATIONS: None. FINDINGS: LUNGS AND PLEURA: Trace bilateral pleural effusions are present. There is very mild pulmonary edema with ground-glass opacity in the lungs. Patchy atelectasis in the bilateral lower lobes in the posterior costophrenic sulci. AORTA AND GREAT VESSELS: No aneurysm. Contrast bolus not optimized for the aorta. HEART: No pericardial effusion. No significant coronary artery calcifications. PULMONARY ARTERIES: No emboli visualized in the main pulmonary arteries or the segmental branches. HILAR AND MEDIASTINAL STRUCTURES: No identified masses or abnormal nodes. HARDWARE: None in the chest. UPPER ABDOMEN: 8 cm cyst sub- diaphragmatic surface right lobe liver. 4.5 cm cyst left lobe liver, b oth of these are similar compared to 2010 THYROID AND OTHER SOFT TISSUES: No masses. No adenopathy. BONES: No acute or significant finding. 3D MIPS: Confirm above findings. OTHER: No other significant finding. IMPRESSION: Mild pulmonary edema, trace bilateral pleural effusions. Mild bibasilar atelectasis. No CT angio evidence of acute pulmonary emboli. Hepatic cysts, similar compared to 2011 COMMENT: Quality ID # [id number]: Final reports with documentation of one or more dose reduction techniques (e.g., Automated exposure control, adjustment of the mA and/or kV according to patient size, use of iterative reconstruction technique) TECHNICAL DOCUMENTATION: JOB ID: [id number] [employer]- All Rights Reserved
[2017-08-01] MEDS ORDERED: FUROSEMIDE INJ/PF 40 MG/4 ML SDV IV ONE (17:32)
[2017-08-01 17:46] LABS: APPEARANCE,URINE SLIGHTLY-CLOUDY; BILIRUBIN,URINE NEGATIVE (NEGATIVE); GLUCOSE, URINE NEGATIVE (NEGATIVE); KETONES,URINE NEGATIVE (NEGATIVE); LEUKOCYTE ESTERASE,URINE NEGATIVE (NEGATIVE); NITRITE,URINE NEGATIVE (NEGATIVE); PROTEIN,URINE 30 mg/dL (NEGATIVE); URINE SPECIFIC GRAVITY 1.032; UROBILINOGEN,URINE NEGATIVE mg/dL (<2.0)
[2017-08-01 18:13] LABS: ARTERIAL BLOOD O2 SATURATION 90.5 % (94-98)
--- NOTE | 2017-08-01 18:57 | EKG REPORT ---
SEVERITY:- ABNORMAL ECG - SINUS BRADYCARDIA ATRIAL PREMATURE COMPLEX NONSPECIFIC T ABNORMALITIES, LATERAL LEADS : Confirmed by: Sumit Flores MD 01-Aug-2017 18:56:39
--- NOTE | 2017-08-01 20:37 | PDOC H&P ---
History of Present Illness Admission Date/PCP: 08/01/17 19:02 JEANNETTE JYOTSNALilian Patient complains of: Decrease oxygen level History of Present Illness: RAJWINDER BOONE is a 82 year old female known to my practice how was brought to the ED by EMS following family and home health nurse reported oxygen saturation of 89% but patient has fingernail azeri on but other site saturation was 95-96 % on room air. She was recently discharged from this facility with similar presentation and associated bradycardia that was related to her obstructive sleep apnea. She was started on CPAP usage at home but her compliance is a problem because she claimed that it was not set up properly for her at home. She denied any chest pain, palpitation or wheezing. She denied any shortness of breath. Family reported more swelling to her feet and leg more than usual today. Her initial evaluation in the ED was remarkable for chest CTA suggestive of mild pulmonary edema, slightly elevated NT-Pro BNP comparative level, bradycardia, and hypoxemia on her ABG on room air. There was reported decline in her hemoglobin but stool guaiac test was negative. In view of her evaluation findings and concern about her bradycardia ED physician felt that she should be admitted. Her morbidities include Obstructive sleep apnea, Paroxysmal Atrial Fibrillation, Hypertension, hyperlipidemia, Diabetes Mellitus type 2, COPD, Depression with anxiety, Dementia senile type, and osteoarthritis. Past Medical History Cardiac Medical History: Reports: Atrial Fibrillation, Myocardial Infarction - 2yrs ago?, Hyperlipidema, Hypertension - MEDICATION, Other - Pulmonary hypertension Denies: Coronary Artery Disease Pulmonary Medical History: Reports: Bronchitis Denies: Asthma, Chronic Obstructive Pulmonary Disease (COPD), Pneumonia Neurological Medical History: Denies: Seizures Endocrine Medical History: Reports: Diabetes Mellitus Type 2 GI Medical History: Denies: Hepatitis, Hiatal Hernia Musculoskeltal Medical History: Denies: Arthritis Psychiatric Medical History: Reports: Depression Hematology: Denies: Anemia, Sickle Cell Disease Past Surgical History Past Surgical History: Reports: Hysterectomy, Tonsillectomy Denies: Mastectomy, Pacemaker Social History Lives with: Family Smoking Status: Never Smoker Frequency of Alcohol Use: Rare Hx Recreational Drug Use: No Drugs: None Hx Prescription Drug Abuse: No Family History Family History: None Parental Family History Reviewed: Yes Children Family History Reviewed: Yes Sibling(s) Family History Reviewed.: Yes Medication/Allergy Home Medications: Amlodipine Besylate [Norvasc 5 mg Tablet] 5 mg PO Q12 08/01/17 Donepezil HCl [Aricept 5 mg Tablet] 5 mg PO DAILY 08/01/17 Hydrochlorothiazide [Hydrodiuril 25 mg Tablet] 25 mg PO DAILY 08/01/17 Nateglinide [Starlix] 120 mg PO Q12 08/01/17 Rosuvastatin Calcium [Crestor 20 mg Tablet] 20 mg PO DAILY 08/01/17 Sertraline HCl [Zoloft 50 mg Tablet] 50 mg PO DAILY 08/01/17 Trazodone HCl [Desyrel 50 mg Tablet] 50 mg PO QHS 08/01/17 Valsartan [Diovan] 320 mg PO DAILY 08/01/17 Allergies/Adverse Reactions: codeine [Codeine] Allergy (Mild, Verified 12/04/16 04:13) unknown aspirin [Aspirin] Allergy (Verified 12/04/16 04:13) Review of Systems Constitutional: ABSENT: chills, fever(s), headache(s), weight gain, weight loss Eyes: PRESENT: visual disturbances Ears: PRESENT: hearing changes Nose, Mouth, and Throat: ABSENT: as per HPI, headache(s), mouth pain, sore throat, vertigo, other Cardiovascular: ABSENT: chest pain, dyspnea on exertion, edema, orthropnea, palpitations Respiratory: ABSENT: cough, hemoptysis Gastrointestinal: ABSENT: abdominal pain, constipation, diarrhea, hematemesis, hematochezia, nausea, vomiting Genitourinary: ABSENT: dysuria, hematuria Musculoskeletal: PRESENT: joint swelling - ankle joints and lower legs Integumentary: ABSENT: rash, wounds Neurological: PRESENT: confusion - related to her dementia, memory loss Psychiatric: PRESENT: anxiety, depression Endocrine: ABSENT: cold intolerance, heat intolerance, polydipsia, polyuria Hematologic/Lymphatic: ABSENT: easy bleeding, easy bruising, lymphadenopathy Allergic/Immunologic: PRESENT: seasonal rhinorrhea Physical Exam Vital Signs: Temp Pulse Resp BP Pulse Ox 98.7 F 17 149/61 H 95 08/01/17 14:02 08/01/17 19:01 08/01/17 19:01 08/01/17 19:01 General appearance: PRESENT: no acute distress, cooperative Head exam: PRESENT: atraumatic, normocephalic Eye exam: PRESENT: conjunctiva pink, EOMI, PERRLA. ABSENT: scleral icterus Ear exam: PRESENT: normal external ear exam Mouth exam: PRESENT: moist. ABSENT: dry mucosa, laceration, neck supple, tongue midline, other Throat exam: ABSENT: post pharyngeal erythema, tonsillar erythema, tonsillar exudate, tonsillogmegaly, other Neck exam: PRESENT: full ROM. ABSENT: carotid bruit, JVD, lymphadenopathy, thyromegaly Respiratory exam: PRESENT: clear to auscultation merna, prolonged expiratory phas - at lung bases Cardiovascular exam: PRESENT: bradycardia, irregular rhythm, +S1, +S2. ABSENT: clicks, diastolic murmur, gallop, RRR, rubs, systolic murmur, tachycardia, other Pulses: PRESENT: normal carotid pulses, normal radial pulses, normal femoral pulses, normal dorsalis pedis pul, +1 pedal pulses bilateral Vascular exam: PRESENT: normal capillary refill. ABSENT: pallor GI/Abdominal exam: PRESENT: normal bowel sounds, soft. ABSENT: distended, guarding, mass, organolmegaly, rebound, tenderness Rectal exam: PRESENT: deferred Extremities exam: PRESENT: pedal edema - 1+ pitting pedal edema Neurological exam: PRESENT: alert, awake, oriented to person, oriented to place , oriented to time, oriented to situation, CN II-XII grossly intact, motor sensory deficit Psychiatric exam: PRESENT: appropriate affect, normal mood. ABSENT: homicidal ideation, suicidal ideation Skin exam: PRESENT: dry, intact, warm. ABSENT: cyanosis, rash Results Laboratory Results: I reviewed her lab results on [employer] and form significant part of my medical decision making on this case. Impressions: Chest X-Ray 08/01/17 14:42 IMPRESSION: Borderline cardiomegaly without failure. Limited lower lobe infiltrate versus subsegmental atelectasis. Small pleural effusions. Chest/Abdomen CTA 08/01/17 15:52 IMPRESSION: Mild pulmonary edema, trace bilateral pleural effusions. Mild bibasilar atelectasis. No CT angio evidence of acute pulmonary emboli. Hepatic cysts, similar compared to 2011 Assessment & Plan - Diagnosis (1) Pulmonary edema Qualifiers: Chronicity: acute Qualified Code(s): J81.0 - Acute pulmonary edema Is this a current diagnosis for this admission?: Yes Plan: See admitting attending physician orders. (2) Bradycardia Is this a current diagnosis for this admission?: Yes Plan: See admitting attending physician orders. Most likely related to her NANCY and noncompliance with CPAP machine usage. (3) Obstructive sleep apnea of adult Is this a current diagnosis for this admission?: Yes Plan: See admitting attending physician orders. (4) Paroxysmal atrial fibrillation Is this a current diagnosis for this admission?: Yes Plan: See admitting attending physician orders. (5) Diabetes mellitus type 2 in obese Is this a current diagnosis for this admission?: Yes Plan: See admitting attending physician orders. (6) HTN (hypertension) Qualifiers: Hypertension type: essential hypertension Qualified Code(s): I10 - Essential (primary) hypertension Is this a current diagnosis for this admission?: Yes Plan: See admitting attending physician orders. (7) HLD (hyperlipidemia) Qualifiers: Hyperlipidemia type: pure hypercholesterolemia Qualified Code(s): E78.00 - Pure hypercholesterolemia, unspecified Is this a current diagnosis for this admission?: Yes Plan: See admitting attending physician orders. (8) Mixed anxiety and depressive disorder Is this a current diagnosis for this admission?: Yes Plan: See admitting attending physician orders. - Time Time Spent: Greater than 70 Minutes Medications reviewed and adjusted accordingly: Yes Anticipated discharge: Home Within: Other - Inpatient Certification Based on my medical assessment, after consideration of the patient's comorbidities, presenting symptoms, or acuity I expect that the services needed warrant INPATIENT care.: Yes I certify that my determination is in accordance with my understanding of Medicare's requirements for reasonable and necessary INPATIENT services [42 CFR 412.3e].: Yes Medical Necessity: Need Close Monitoring Due to Risk of Patient Decompensation, Need For Continuous Telemetry Monitoring, Risk of Complication if Not Cared For in Hospital Post 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
[2017-08-01] MEDS ORDERED: DEXTROSE 50%-WATER 25 GM/50 ML DISP.SYRIN IV PRN ×2 (20:42)
[2017-08-01] MEDS ORDERED: GLUCAGON,HUMAN RECOMB 1 MG INJ IM PRN (20:42)
[2017-08-01] MEDS ORDERED: DEXTROSE 40% GEL 15 GM TUBE PO PRN ×2 (20:42)
[2017-08-01 21:30] LABS: HEMATOCRIT 31.3 % (36.0-47.0); HEMOGLOBIN 10.2 g/dL (12.0-15.5); HGB HCT DIFFERENCE -0.7; MEAN CORPUSCULAR HEMOGLOBIN 26.2 pg (27.0-33.4); MEAN CORPUSCULAR HGB CONC 32.7 g/dL (32.0-36.0); MEAN CORPUSCULAR VOLUME 80 fl (80-97); RED CELL DISTRIBUTION WIDTH 15.5 % (11.5-14.0); WHITE BLOOD COUNT 7.3 10^3/uL (4.0-10.5)
[2017-08-01 21:38] LABS: PROTHROMBIN TIME 14.7 SEC (11.4-15.4)
[2017-08-01 21:39] LABS: PARTIAL THROMBOPLASTIN TIME 40.6 SEC (23.5-35.8)
[2017-08-01 21:45] LABS: CREATININE RESULT 0.86 mg/dL (0.52-1.25)
[2017-08-01] MEDS ORDERED: (PENDING PHARMACY ID) (Nateglinide [Starlix] 120 MG) PO SCH (22:00)
[2017-08-01] MEDS: INSULIN LISPRO 100 UNIT/ML 3 ML VIAL SUBCUT PRN (23:40)
[2017-08-01] MEDS: ATORVASTATIN CALCIUM 40 MG TABLET PO SCH (23:41)
[2017-08-01] MEDS: TRAZODONE HCL 50 MG TABLET PO SCH (23:42)
[2017-08-02] MEDS ORDERED: LANSOPRAZOLE 30 MG TAB.RAP.DR PO SCH (06:00)
[2017-08-02 06:09] LABS: ALANINE AMINOTRANSFERASE 22 U/L (9-52); ALBUMIN 3.5 g/dL (3.5-5.0); ALKALINE PHOSPHATASE 106 U/L (38-126); ANION GAP 11 (5-19); ASPARTATE AMINO TRANSFERASE 28 U/L (14-36); BILIRUBIN,DIRECT 0.3 mg/dL (0.0-0.4); BILIRUBIN,TOTAL 0.5 mg/dL (0.2-1.3); BLOOD UREA NITROGEN 32 mg/dL (7-20); CARBON DIOXIDE 30 mmol/L (22-30); CHLORIDE 103 mmol/L (98-107); CREATININE RESULT 0.87 mg/dL (0.52-1.25); GLUCOSE 124 mg/dL (75-110); POTASSIUM 3.7 mmol/L (3.6-5.0); SODIUM 144.2 mmol/L (137-145); TOTAL PROTEIN 6.5 g/dL (6.3-8.2)
[2017-08-02 06:11] LABS: ABSOLUTE BASOPHILS # (AUTO) 0.1 10^3/uL (0.0-0.2); ABSOLUTE EOSINOPHILS # (AUTO) 0.1 10^3/uL (0.0-0.6); ABSOLUTE MONOCYTES (AUTO) 0.6 10^3/uL (0.1-1.4); ABSOLUTE NEUT (AUTO) 6.4 10^3/uL (1.7-8.2); EOSINOPHILS % (AUTO) 1.6 % (0-6); HEMATOCRIT 28.9 % (36.0-47.0); HEMOGLOBIN 9.6 g/dL (12.0-15.5); HGB HCT DIFFERENCE -0.1; LYMPHOCYTES % (AUTO) 11.8 % (13-45); MEAN CORPUSCULAR HEMOGLOBIN 26.4 pg (27.0-33.4); MEAN CORPUSCULAR HGB CONC 33.3 g/dL (32.0-36.0); MEAN CORPUSCULAR VOLUME 79 fl (80-97); MONOCYTES % (AUTO) 7.6 % (3-13); RED BLOOD COUNT 3.65 10^6/uL (3.72-5.28); RED CELL DISTRIBUTION WIDTH 15.6 % (11.5-14.0); WHITE BLOOD COUNT 8.2 10^3/uL (4.0-10.5)
--- NOTE | 2017-08-02 08:08 | EKG REPORT ---
SEVERITY:- ABNORMAL ECG - SINUS OR ECTOPIC ATRIAL RHYTHM PAIRED VENTRICULAR PREMATURE COMPLEXES NONSPECIFIC T ABNORMALITIES, LATERAL LEADS : Confirmed by: Sumit Flores MD 02-Aug-2017 08:06:51
[2017-08-02] MEDS: APIXABAN 2.5 MG TABLET PO SCH ×2 (09:28→17:54)
[2017-08-02] MEDS: VALSARTAN 160 MG TABLET PO SCH (09:28)
[2017-08-02] MEDS: SERTRALINE HCL 50 MG TABLET PO SCH (09:28)
[2017-08-02] MEDS: HYDROCHLOROTHIAZIDE 25 MG TABLET PO SCH (09:28)
[2017-08-02] MEDS: DONEPEZIL HCL 5 MG TABLET PO SCH (09:28)
[2017-08-02] MEDS ORDERED: (PENDING PHARMACY ID) (Valsartan [Diovan] 320 MG) PO SCH (10:00)
[2017-08-02] MEDS ORDERED: (PENDING PHARMACY ID) (Rosuvastatin Calcium [Crestor 20 Mg Tablet] 20 MG) PO SCH (10:00)
[2017-08-02] MEDS ORDERED: NATEGLINIDE 60 MG TABLET PO ONE (11:30)
[2017-08-02] MEDS: INSULIN LISPRO 100 UNIT/ML 3 ML VIAL SUBCUT PRN ×3 (11:56→22:42)
--- NOTE | 2017-08-02 19:55 | EKG REPORT ---
SEVERITY:- OTHERWISE NORMAL ECG - SINUS OR ECTOPIC ATRIAL RHYTHM LOW VOLTAGE IN FRONTAL LEADS : Confirmed by: Sumit Flores MD 02-Aug-2017 19:53:57
--- NOTE | 2017-08-02 20:08 | PDOC PROGRESS REPORT ---
Subjective Progress Note for:: 08/02/17 Subjective:: Patient denied any chest pain or difficulty with breathing. Continue to demonstrate episodes of significant bradycardia. She remain symptom free. Patient refused use of BiPAP machine for any significant time period. No abdominal pain, nausea or vomiting. No fever or chills. Physical Exam Vital Signs: Temp Pulse Resp BP Pulse Ox 97.4 F 57 L 23 H 142/85 H 95 08/02/17 15:39 08/02/17 15:39 08/02/17 15:39 08/02/17 15:39 08/02/17 17:24 Intake & Output 08/01/17 08/02/17 08/03/17 06:59 06:59 06:59 Intake Total 596 Balance 596 Weight 104.2 kg General appearance: PRESENT: no acute distress, cooperative Head exam: PRESENT: atraumatic, normocephalic Eye exam: PRESENT: conjunctiva pink, EOMI, PERRLA. ABSENT: scleral icterus Mouth exam: PRESENT: moist Respiratory exam: PRESENT: clear to auscultation merna Cardiovascular exam: PRESENT: bradycardia, irregular rhythm, +S1, +S2, tachycardia. ABSENT: diastolic murmur, systolic murmur Vascular exam: ABSENT: pallor GI/Abdominal exam: PRESENT: normal bowel sounds, soft. ABSENT: distended, guarding, mass, organolmegaly, rebound, tenderness Extremities exam: ABSENT: pedal edema Musculoskeletal exam: PRESENT: normal inspection. ABSENT: tenderness Neurological exam: PRESENT: alert, awake, oriented to person, oriented to place , oriented to time, CN II-XII grossly intact. ABSENT: oriented to situation - refused BiPAP usage, motor sensory deficit Psychiatric exam: PRESENT: appropriate affect, normal mood. ABSENT: homicidal ideation, suicidal ideation Skin exam: PRESENT: dry, intact, warm. ABSENT: cyanosis, rash Results Laboratory Results: 08/02/17 05:27 08/02/17 05:27 08/01/17 08/01/17 08/02/17 21:20 21:20 05:27 WBC 7.3 8.2 RBC 3.90 3.65 L Hgb 10.2 L 9.6 L Hct 31.3 L 28.9 L MCV 80 79 L MCH 26.2 L 26.4 L MCHC 32.7 33.3 RDW 15.5 H 15.6 H Plt Count 202 174 Seg Neutrophils % 78.0 Lymphocytes % 11.8 L Monocytes % 7.6 Eosinophils % 1.6 Basophils % 1.0 Absolute Neutrophils 6.4 Absolute Lymphocytes 1.0 Absolute Monocytes 0.6 Absolute Eosinophils 0.1 Absolute Basophils 0.1 Sodium Potassium Chloride Carbon Dioxide Anion Gap BUN Creatinine 0.86 Est GFR ( Amer) > 60 Est GFR (Non-Af Amer) > 60 Glucose Calcium Total Bilirubin AST ALT Alkaline Phosphatase Total Protein Albumin 08/02/17 05:27 WBC RBC Hgb Hct MCV MCH MCHC RDW Plt Count Seg Neutrophils % Lymphocytes % Monocytes % Eosinophils % Basophils % Absolute Neutrophils Absolute Lymphocytes Absolute Monocytes Absolute Eosinophils Absolute Basophils Sodium 144.2 Potassium 3.7 Chloride 103 Carbon Dioxide 30 Anion Gap 11 BUN 32 H Creatinine 0.87 Est GFR ( Amer) > 60 Est GFR (Non-Af Amer) > 60 Glucose 124 H Calcium 9.0 Total Bilirubin 0.5 AST 28 ALT 22 Alkaline Phosphatase 106 Total Protein 6.5 Albumin 3.5 Impressions: Chest X-Ray 08/01/17 14:42 IMPRESSION: Borderline cardiomegaly without failure. Limited lower lobe infiltrate versus subsegmental atelectasis. Small pleural effusions. Chest/Abdomen CTA 08/01/17 15:52 IMPRESSION: Mild pulmonary edema, trace bilateral pleural effusions. Mild bibasilar atelectasis. No CT angio evidence of acute pulmonary emboli. Hepatic cysts, similar compared to 2011 Assessment & Plan - Diagnosis (1) Pulmonary edema Qualifiers: Chronicity: acute Qualified Code(s): J81.0 - Acute pulmonary edema Is this a current diagnosis for this admission?: Yes (2) Bradycardia Is this a current diagnosis for this admission?: Yes (3) Obstructive sleep apnea of adult Is this a current diagnosis for this admission?: Yes (4) Paroxysmal atrial fibrillation Is this a current diagnosis for this admission?: Yes (5) Diabetes mellitus type 2 in obese Is this a current diagnosis for this admission?: Yes (6) HTN (hypertension) Qualifiers: Hypertension type: essential hypertension Qualified Code(s): I10 - Essential (primary) hypertension Is this a current diagnosis for this admission?: Yes (7) HLD (hyperlipidemia) Qualifiers: Hyperlipidemia type: pure hypercholesterolemia Qualified Code(s): E78.00 - Pure hypercholesterolemia, unspecified Is this a current diagnosis for this admission?: Yes (8) Mixed anxiety and depressive disorder Is this a current diagnosis for this admission?: Yes - Time Time Spent with patient: 25-34 minutes Medications reviewed and adjusted accordingly: Yes Anticipated discharge: Home with Homehealth Within: Other - Inpatient Certification Based on my medical assessment, after consideration of the patient's comorbidities, presenting symptoms, or acuity I expect that the services needed warrant INPATIENT care.: Yes I certify that my determination is in accordance with my understanding of Medicare's requirements for reasonable and necessary INPATIENT services [42 CFR 412.3e].: Yes Medical Necessity: Need For Continuous Telemetry Monitoring, Need for Nebulizer Therapy and Monitoring of Response, Risk of Complication if Not Cared For in Hospital Post Hospital Care: D/C Prop Cutter Documentation - Plan Summary Plan Summary: Patient bradycardia is most likely due to her NANCY. I will request cardiology consultation with Dr. Alexa humphries further input. I had extensive discussion with patient with regard to BiPAP usage compliance and relationship with her bradycardia.
[2017-08-02] MEDS: TRAZODONE HCL 50 MG TABLET PO SCH (21:22)
[2017-08-02] MEDS: NATEGLINIDE 60 MG TABLET PO SCH (21:22)
[2017-08-02] MEDS: ATORVASTATIN CALCIUM 40 MG TABLET PO SCH (21:22)
[2017-08-03] MEDS ORDERED: LANSOPRAZOLE 30 MG TAB.RAP.DR PO SCH (06:00)
[2017-08-03] MEDS: DONEPEZIL HCL 5 MG TABLET PO SCH (10:05)
[2017-08-03] MEDS: SERTRALINE HCL 50 MG TABLET PO SCH (10:10)
[2017-08-03] MEDS: NATEGLINIDE 60 MG TABLET PO SCH ×2 (10:10→21:15)
[2017-08-03] MEDS: VALSARTAN 160 MG TABLET PO SCH (10:10)
[2017-08-03] MEDS: APIXABAN 2.5 MG TABLET PO SCH ×2 (10:10→17:54)
[2017-08-03] MEDS: HYDROCHLOROTHIAZIDE 25 MG TABLET PO SCH (10:10)
[2017-08-03 11:43] LABS: FREE T3 3.33 pg/mL (2.77-5.27)
[2017-08-03] MEDS: INSULIN LISPRO 100 UNIT/ML 3 ML VIAL SUBCUT PRN ×2 (12:16→21:15)
--- NOTE | 2017-08-03 12:22 | PDOC CONSULTATION ---
Consultation Consult Date: 08/03/17 Attending physician:: JEANNETTE CARRASQUILLO Consult reason:: Bradycardia History of Present Illness Admission Date/PCP: 08/01/17 20:37 JEANNETTE CARRASQUILLO Patient complains of: General fatigue and tiredness History of Present Illness: RAJWINDER BOONE is a 82 year old female known to my practice how was brought to the ED by EMS following family and home health nurse reported oxygen saturation of 89% but patient has fingernail [place] citizen on but other site saturation was 95-96 % on room air. She was recently discharged from this facility with similar presentation and associated bradycardia that was related to her obstructive sleep apnea. She was started on CPAP usage at home but her compliance is a problem because she claimed that it was not set up properly for her at home. She denied any chest pain, palpitation or wheezing. She denied any shortness of breath. Family reported more swelling to her feet and leg more than usual today. Her initial evaluation in the ED was remarkable for chest CTA suggestive of mild pulmonary edema, slightly elevated NT-Pro BNP comparative level, bradycardia, and hypoxemia on her ABG on room air. There was reported decline in her hemoglobin but stool guaiac test was negative. In view of her evaluation findings and concern about her bradycardia ED physician felt that she should be admitted. Her morbidities include Obstructive sleep apnea, Paroxysmal Atrial Fibrillation, Hypertension, hyperlipidemia, Diabetes Mellitus type 2, COPD, Depression with anxiety, Dementia senile type, and osteoarthritis. I was asked to see the patient because of bradycardia. This history was reviewed and confirmed. On questioning patient, she claims that she never lost consciousness and never had syncope but had a episode about 2 weeks ago where she felt a near syncopal with her legs becoming wobbly and falling to the ground. Patient's telemetry strips were reviewed. In fact patient was noted to have a 4 seconds pause and has several episodes where her heart rate will be in the low 30s. Past Medical History Cardiac Medical History: Reports: Atrial Fibrillation, Myocardial Infarction - 2yrs ago?, Hyperlipidema, Hypertension - MEDICATION, Other - Pulmonary hypertension Denies: Coronary Artery Disease Pulmonary Medical History: Reports: Bronchitis Denies: Asthma, Chronic Obstructive Pulmonary Disease (COPD), Pneumonia Neurological Medical History: Denies: Seizures Endocrine Medical History: Reports: Diabetes Mellitus Type 2 GI Medical History: Denies: Hepatitis, Hiatal Hernia Musculoskeltal Medical History: Denies: Arthritis Psychiatric Medical History: Reports: Depression Hematology: Denies: Anemia, Sickle Cell Disease Past Surgical History Past Surgical History: Reports: Hysterectomy, Tonsillectomy Denies: Mastectomy, Pacemaker Social History Information Source: Patient Lives with: Family Smoking Status: Never Smoker Frequency of Alcohol Use: Occasional Hx Recreational Drug Use: No Drugs: None Hx Prescription Drug Abuse: No - Advance Directive Resuscitation Status: Full Code Family History Family History: None Parental Family History Reviewed: Yes Children Family History Reviewed: Yes Sibling(s) Family History Reviewed.: Yes Medication/Allergy Home Medications: Amlodipine Besylate [Norvasc 5 mg Tablet] 5 mg PO Q12 08/01/17 Donepezil HCl [Aricept 5 mg Tablet] 5 mg PO DAILY 08/01/17 Hydrochlorothiazide [Hydrodiuril 25 mg Tablet] 25 mg PO DAILY 08/01/17 Nateglinide [Starlix] 120 mg PO Q12 08/01/17 Rosuvastatin Calcium [Crestor 20 mg Tablet] 20 mg PO DAILY 08/01/17 Sertraline HCl [Zoloft 50 mg Tablet] 50 mg PO DAILY 08/01/17 Trazodone HCl [Desyrel 50 mg Tablet] 50 mg PO QHS 08/01/17 Valsartan [Diovan] 320 mg PO DAILY 08/01/17 Allergies/Adverse Reactions: codeine [Codeine] Allergy (Mild, Verified 12/04/16 04:13) unknown aspirin [Aspirin] Allergy (Verified 12/04/16 04:13) Review of Systems Review of Systems: Please see history of present illness and past medical history as wall. Constitutional: No fever or chills reported. Head : No recent chronic headaches, recent head injury. Eyes: No recent eye pain, diplopia, redness, discharge, acute visual changes. Ears: No recent chronic ear pain, acute hearing loss, ear discharge. Oral cavity: No recent ulcerations, bleeding, oral cavity discomfort. Neck: No recent acute neck pain reported. Hematologic: No recent easy bruising or bleeding or hematologic malignancy reported. Lymphatic: No recent lymphatic malignancy, chronic lymphadenopathy reported yet Cardiovascular system review: See history of present illness. Respiratory system review: No recent chronic cough, hemoptysis, blood clots in the lungs reported. Mild Shortness of breath on exertion Gastrointestinal system review: Negative for any recent acute or chronic abdominal pain, hematemesis, melena, recent change in bowel habits. Genitourinary system review: No recent acute or chronic hematuria, flank pain, UTI etc. reported. Skin system review: Negative for any recent abnormal bruising, no rash, no pruritus reported. Neurologic: No prior history of strokes, mini strokes, seizure disorder. Patient has history of sleep apnea and mild senile dementia. Psychologic: No history of major psychosis or major depression reported. Musculoskeletal: Minor aches and pains reported. No acute joint swelling reported. Endocrine: No recent polyuria, polydipsia, recent heat or cold intolerance. Physical Exam Vital Signs: Temp Pulse Resp BP Pulse Ox 97.5 F 69 22 H 139/57 H 95 08/03/17 07:40 08/03/17 07:40 08/03/17 07:40 08/03/17 07:40 08/03/17 08:00 Intake & Output 08/02/17 08/03/17 08/04/17 06:59 06:59 06:59 Intake Total 1306 Balance 1306 Weight 104.2 kg Exam: GENERAL: well-nourished and in no acute distress. Alert and oriented x3 HEAD: Atraumatic, normocephalic. EYES: Pupils equal round and reactive to light, extraocular movements intact, sclera anicteric, conjunctiva are normal. ENT: TMs normal, nares patent, oropharynx clear without exudates. Moist mucous membranes. No oral ulcerations or bleeding gums noted NECK: supple without lymphadenopathy. Trachea is central. No cervical or axillary lymphadenopathy noted. Carotids are 2+, JVD WNL LUNGS: Respiration seems nonlabored, no significant accessory muscle action noted. Breath sounds clear to auscultation bilaterally and equal noted. No wheezes rales or rhonchi noted. No significant dullness noted on percussion. CHEST: Palpation of the chest wall shows no significant chest wall tenderness. No other significant abnormalities noted. 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 ABDOMEN: Soft, no significant tenderness appreciated, normoactive bowel sounds. No guarding, no rebound. No rigidity noted . No masses appreciated. EXTREMITIES: Pedal pulses are 1-2+, no calf tenderness noted. No clubbing or cyanosis.trace to 1+ pedal edema noted NEUROLOGICAL: Focused neurological exam showed no significant neurologic deficit. Normal speech, no focal weakness appreciated. PSYCH: Normal mood, normal affect. Judgment and insight within normal limits. SKIN: No significant ecchymosis, rash, ulcerations or signs of pruritus noted. MUSCULOSKELETAL EXAM: No significant joint swelling noted. Results Laboratory Results: 08/02/17 05:27 08/02/17 05:27 08/03/17 10:59 Free T4 1.38 Free T3 pg/mL 3.33 EKG Comments: Sinus rhythm with ventricular ectopy and one ventricular couplet. Impressions: Chest X-Ray 08/01/17 14:42 IMPRESSION: Borderline cardiomegaly without failure. Limited lower lobe infiltrate versus subsegmental atelectasis. Small pleural effusions. Chest/Abdomen CTA 08/01/17 15:52 IMPRESSION: Mild pulmonary edema, trace bilateral pleural effusions. Mild bibasilar atelectasis. No CT angio evidence of acute pulmonary emboli. Hepatic cysts, similar compared to 2010 Assessment & Plan - Diagnosis (1) Bradycardia Is this a current diagnosis for this admission?: Yes (2) Paroxysmal atrial fibrillation Is this a current diagnosis for this admission?: Yes (3) Depression Qualifiers: Depression Type: major depressive disorder Active/Remission status: currently active Psychotic features: without psychotic features (4) Diabetes mellitus type 2 in obese Is this a current diagnosis for this admission?: Yes (5) HLD (hyperlipidemia) Qualifiers: Hyperlipidemia type: pure hypercholesterolemia Qualified Code(s): E78.00 - Pure hypercholesterolemia, unspecified Is this a current diagnosis for this admission?: Yes (6) HTN (hypertension) Qualifiers: Hypertension type: essential hypertension Qualified Code(s): I10 - Essential (primary) hypertension Is this a current diagnosis for this admission?: Yes - Notes Notes: Bradycardia: Most likely related to underlying sick sinus syndrome with history of paroxysmal atrial fibrillation being noted in the past. At this point will stop Aricept, which can increase vagal tone. Will also stop trazodone and switch patient to Effexor. Based on symptoms of near syncope and continued observation of bradycardia and a 4 second pause, which the nurses tell me happened while patient was awake, feel that patient will benefit from evaluation for permanent pacemaker placement. In this regard I have called Dr. Forest Seals and he has kindly accepted the patient. I am told by him that he is pinion polisher over the weekend and make arrangements for the patient to be transferred over to [facility] on Sunday. I feel patient is stable enough as patient is noted to have sick sinus syndrome and will respond easily to atropine and other measures if needed for symptomatic bradycardia. Paroxysmal atrial fibrillation: Currently stable. Depression: Currently is stable. Diabetes: Currently stable. Dyslipidemia: Continue antilipid therapy. Hypertension: Currently on stable regimen. Hydralazine, MEERA inhibitor/ angiotensin receptor blockers do not cause bradycardia. Nifedipine amlodipine is less likely to cause it but may be worthwhile to consider switch to hydralazine. As usual I thank Dr. Carrasquillo very much for the kind referral copy to Dr. Carrasquillo. - Time Time Spent: 30 to 50 Minutes Medications reviewed and adjusted accordingly: Yes
[2017-08-03] MEDS ORDERED: HYDRALAZINE HCL 25 MG TABLET PO PRN (16:42)
[2017-08-03] MEDS ORDERED: HYDRALAZINE HCL 10 MG TABLET PO ONE (17:00)
[2017-08-03] MEDS ORDERED: HYDRALAZINE HCL 25 MG TABLET PO ONE (17:30)
--- NOTE | 2017-08-03 17:37 | PDOC TRANSFER SUMMARY ---
General Admission Date/PCP: 08/01/17 20:37 JEANNETTE CARRASQUILLO Resuscitation Status: Full Code - Transfer Diagnosis (1) Bradycardia Is this a current diagnosis for this admission?: Yes Diagnosis Summary: See transfer orders and arrangement. (2) Pulmonary edema Is this a current diagnosis for this admission?: Yes Diagnosis Summary: Resolved. (3) Obstructive sleep apnea of adult Is this a current diagnosis for this admission?: Yes (4) Paroxysmal atrial fibrillation Is this a current diagnosis for this admission?: Yes (5) Diabetes mellitus type 2 in obese Is this a current diagnosis for this admission?: Yes (6) HTN (hypertension) Is this a current diagnosis for this admission?: Yes (7) HLD (hyperlipidemia) Is this a current diagnosis for this admission?: Yes (8) Mixed anxiety and depressive disorder Is this a current diagnosis for this admission?: Yes - Transfer Medications Home Medications: Amlodipine Besylate [Norvasc 5 mg Tablet] 5 mg PO Q12 08/01/17 Donepezil HCl [Aricept 5 mg Tablet] 5 mg PO DAILY 08/01/17 Hydrochlorothiazide [Hydrodiuril 25 mg Tablet] 25 mg PO DAILY 08/01/17 Nateglinide [Starlix] 120 mg PO Q12 08/01/17 Rosuvastatin Calcium [Crestor 20 mg Tablet] 20 mg PO DAILY 08/01/17 Sertraline HCl [Zoloft 50 mg Tablet] 50 mg PO DAILY 08/01/17 Trazodone HCl [Desyrel 50 mg Tablet] 50 mg PO QHS 08/01/17 Valsartan [Diovan] 320 mg PO DAILY 08/01/17 Transfer Medications: Current Medications Apixaban (Eliquis 2.5 Mg Tablet) 2.5 mg PO BID [facility] Stop: 09/01/17 09:59 Last Admin: 08/03/17 10:10 Dose: 2.5 mg Atorvastatin Calcium (Lipitor 40 Mg Tablet) 40 mg PO QHS [facility] Stop: 08/31/17 21:59 Last Admin: 08/02/17 21:22 Dose: 40 mg Dextrose (Dextrose Inj 50% Syringe (25 Gm/50 Ml)) 12.5 gm IV PRN PRN; Protocol PRN Reason: FOR BG 50-69 IN ALERT PATIENT Stop: 08/31/17 20:41 Dextrose (Dextrose Inj 50% Syringe (25 Gm/50 Ml)) 25 gm IV PRN PRN PRN Reason: Protocol Stop: 08/31/17 20:41 Glucagon (Glucagen Inj 1 Mg Vial) 1 mg IM PRN PRN; Protocol PRN Reason: Evaluate for BG < 70 Stop: 08/31/17 20:41 Glucose (Glutose 40% Gel 15 Gm Tube) 15 gm PO PRN PRN; Protocol PRN Reason: FOR BG 50-69 IN ALERT PATIENT Stop: 08/31/17 20:41 Glucose (Glutose 40% Gel 15 Gm Tube) 30 gm PO PRN PRN; Protocol PRN Reason: FOR BG < 50 IN ALERT PATIENT Stop: 08/31/17 20:41 Hydralazine HCl (Apresoline 25 Mg Tablet) 25 mg PO Q8 [facility] Stop: 09/02/17 21:59 Hydralazine HCl (Apresoline 25 Mg Tablet) 25 mg PO NOW ONE Stop: 08/03/17 17:31 Hydrochlorothiazide (Hydrodiuril 25 Mg Tablet) 25 mg PO DAILY [facility] Stop: 09/01/17 09:59 Last Admin: 08/03/17 10:10 Dose: 25 mg Insulin Human Lispro (Humalog Insulin 100 Unit/1 Ml 3 Ml Vial) 0 - 12 unit SUBCUT ACHSP PRN PRN Reason: Protocol Stop: 08/31/17 20:41 Last Admin: 08/03/17 12:16 Dose: 4 unit Lansoprazole (Prevacid 30 Mg Odt Tablet) 30 mg PO Q6AM [facility] Stop: 09/01/17 05:59 Last Admin: 08/03/17 06:26 Dose: 30 mg Nateglinide (Starlix 60 Mg Tablet) 120 mg PO Q12 [facility] Stop: 09/01/17 21:59 Last Admin: 08/03/17 10:10 Dose: 120 mg Valsartan (Diovan 160 Mg Tablet) 320 mg PO DAILY [facility] Stop: 09/01/17 09:59 Last Admin: 08/03/17 10:10 Dose: 320 mg Venlafaxine HCl (Effexor Xr 37.5 Mg Cap.Sr) 37.5 mg PO Q12A [facility] Stop: 09/02/17 17:59 - Allergies Allergies/Adverse Reactions: codeine [Codeine] Allergy (Mild, Verified 12/04/16 04:13) unknown aspirin [Aspirin] Allergy (Verified 12/04/16 04:13) Hospital Course Hospital Course: RAJWINDER BOONE is a 82 year old female known to my practice how was brought to the ED by EMS following family and home health nurse reported oxygen saturation of 89% but patient has fingernail [place] on but other site saturation was 95-96 % on room air. She was recently discharged from this facility with similar presentation and associated bradycardia that was related to her obstructive sleep apnea. She was started on CPAP usage at home but her compliance is a problem because she claimed that it was not set up properly for her at home. She denied any chest pain, palpitation or wheezing. She denied any shortness of breath. Family reported more swelling to her feet and leg more than usual today. Her initial evaluation in the ED was remarkable for chest CTA suggestive of mild pulmonary edema, slightly elevated NT-Pro BNP comparative level, bradycardia, and hypoxemia on her ABG on room air. There was reported decline in her hemoglobin but stool guaiac test was negative. In view of her evaluation findings and concern about her bradycardia ED physician felt that she should be admitted. Her morbidities include Obstructive sleep apnea, Paroxysmal Atrial Fibrillation, Hypertension, hyperlipidemia, Diabetes Mellitus type 2, COPD, Depression with anxiety, Dementia senile type, and osteoarthritis. She did respond slightly to medication adjustment since admission and emphasized use of BiPAP machine while sleeping. She was seen by Dr Liu, is architect, in consultation with recommendation for pace maker placement. She will be transferred to [facility] in [place], [place] for further evaluation and management. Physical Exam Vital Signs: Temp Pulse Resp BP Pulse Ox 97.7 F 54 L 23 H 169/52 H 96 08/03/17 15:53 08/03/17 15:53 08/03/17 15:53 08/03/17 15:53 08/03/17 15:53 Intake & Output 08/02/17 08/03/17 08/04/17 06:59 06:59 06:59 Intake Total 1306 480 Balance 1306 480 Weight 104.2 kg General appearance: PRESENT: no acute distress, cooperative Head exam: PRESENT: atraumatic, normocephalic Eye exam: PRESENT: conjunctiva pink, EOMI, PERRLA. ABSENT: scleral icterus Mouth exam: PRESENT: moist Respiratory exam: PRESENT: clear to auscultation merna Cardiovascular exam: PRESENT: bradycardia, irregular rhythm, +S1, +S2, tachycardia. ABSENT: diastolic murmur, systolic murmur Vascular exam: ABSENT: pallor GI/Abdominal exam: PRESENT: normal bowel sounds, soft. ABSENT: distended, guarding, mass, organolmegaly, rebound, tenderness Extremities exam: ABSENT: pedal edema Musculoskeletal exam: PRESENT: normal inspection. ABSENT: tenderness Neurological exam: PRESENT: alert, awake, oriented to person, oriented to place , oriented to time, CN II-XII grossly intact. ABSENT: oriented to situation - refused BiPAP usage, motor sensory deficit Psychiatric exam: PRESENT: appropriate affect, normal mood. ABSENT: homicidal ideation, suicidal ideation Skin exam: PRESENT: dry, intact, warm. ABSENT: cyanosis, rash Results Laboratory Results: 08/02/17 05:27 08/02/17 05:27 08/03/17 08/03/17 10:59 10:59 TSH 2.49 Free T4 1.38 Free T3 pg/mL 3.33 Impressions: Chest X-Ray 08/01/17 14:42 IMPRESSION: Borderline cardiomegaly without failure. Limited lower lobe infiltrate versus subsegmental atelectasis. Small pleural effusions. Chest/Abdomen CTA 08/01/17 15:52 IMPRESSION: Mild pulmonary edema, trace bilateral pleural effusions. Mild bibasilar atelectasis. No CT angio evidence of acute pulmonary emboli. Hepatic cysts, similar compared to 2011 Plan Discharge Plan: I discussed case with Dr Araiza, is architect, at [facility] and she has been accepted to telemetry floor at the facility for further evaluation and management. Time Spent: Greater than 30 Minutes - Mopre than 50 % of my consultation time was spent in care coordination and transfer planing.
[2017-08-03] MEDS ORDERED: VENLAFAXINE HCL 37.5 MG CAP.SR.24H PO SCH (18:00)
[2017-08-03 19:42] VITALS: BP 126/48
[2017-08-03] MEDS: ATORVASTATIN CALCIUM 40 MG TABLET PO SCH (21:15)
[2017-08-03] MEDS ORDERED: HYDRALAZINE HCL 10 MG TABLET PO SCH (22:00)
[2017-08-03] MEDS ORDERED: HYDRALAZINE HCL 25 MG TABLET PO SCH (22:00)
== END 2017-08-03 21:51 | DRG 189 ==
LOC: ER 13:45 → UNDOADMIN 19:02 → EH 19:02 → 3S 22:05
PROVIDERS: ADMIT Internal Medicine Geriatric Medicine; ATTEND Internal Medicine Geriatric Medicine
PROC: 5A09457 Assistance with Respiratory Ventilation, 24-96 Consecutive Hours, Continuous Positive Airway Pressure (ICD-10-PCS; principal; 2017-08-01)
DX: J81.0 Acute pulmonary edema (principal); I48.0 Paroxysmal atrial fibrillation; G47.33 Obstructive sleep apnea (adult) (pediatric); E11.9 Type 2 diabetes mellitus without complications; E66.9 Obesity, unspecified; Z68.37 Body mass index [BMI] 37.0-37.9, adult; I10 Essential (primary) hypertension; E78.5 Hyperlipidemia, unspecified; F41.8 Other specified anxiety disorders; J44.9 Chronic obstructive pulmonary disease, unspecified; F03.90 Unspecified dementia, unspecified severity, without behavioral disturbance, psychotic disturbance, mood disturbance, and anxiety; R00.1 Bradycardia, unspecified; I25.2 Old myocardial infarction; Z79.899 Other long term (current) drug therapy; Z88.6 Allergy status to analgesic agent; Z90.710 Acquired absence of both cervix and uterus; Z91.19 Patient's noncompliance with other medical treatment and regimen
CPT/HCPCS: 36415; 71010; 71275; 80053; 81001; 82272; 82550; 82565; 82803; 82962; 83735; 83880; 84439; 84443; 84481; 84484; 85025; 85027; 85379; 85610; 85730; 87040; 93005; 93010; 94660; 96374; 99285; J1815; J1940; J3490

== ENCOUNTER 2018-03-21 03:12 | Observation (INO) | payer MEDICARE ==
[2018-03-21] MEDS ORDERED: ASPIRIN 81 MG TABLET, CHEWABLE PO ONE (03:13)
--- NOTE | 2018-03-21 03:43 | ER Document Report ---
ED General - General Stated Complaint: CHEST PAIN Time Seen by Provider: 03/21/18 03:37 Mode of Arrival: Ambulatory Information source: Patient Notes: 83-year-old female with atrial fibrillation, hypertension, type 2 diabetes, hyperlipidemia presents with complaint of right upper chest pain that started 2 hours prior to arrival while at rest. Patient states the pain awoke her from sleep. She describes it as located in the right upper chest, a dull ache that does not radiate. Pain is not worse with movement but it was relieved with nitro. Denies any associated nausea, diaphoresis, lightheadedness. She denies any recent illnesses. She states she has been compliant with her medications. She denies any sick contacts. TRAVEL OUTSIDE OF THE [place] IN LAST 30 DAYS: No - HPI Onset: Just prior to arrival Onset/Duration: Sudden, Constant, Better Quality of pain: Achy Severity: Mild Associated symptoms: Chest pain. denies: Nonproductive cough, Productive cough , Fever, Headache, Nausea, Vomiting, Shortness of breath Exacerbated by: Denies Relieved by: Other - nitro Similar symptoms previously: No Recently seen / treated by doctor: No - Related Data Allergies/Adverse Reactions: codeine [Codeine] Allergy (Mild, Verified 12/04/16 04:13) unknown aspirin [Aspirin] Allergy (Verified 12/04/16 04:13) Past Medical History - General Information source: Patient, [facility] Records - Social History Smoking Status: Never Smoker Frequency of alcohol use: None Lives with: Family Family History: None Patient has suicidal ideation: No Patient has homicidal ideation: No - Past Medical History Cardiac Medical History: Reports: Hx Atrial Fibrillation, Hx Heart Attack - 2yrs ago?, Hx Hypercholesterolemia, Hx Hypertension - MEDICATION Denies: Hx Coronary Artery Disease Pulmonary Medical History: Reports: Hx Bronchitis Denies: Hx Asthma, Hx COPD, Hx Pneumonia Neurological Medical History: Reports: Hx Cerebrovascular Accident - 2yrs ago ? . Denies: Hx Seizures Endocrine Medical History: Reports: Hx Diabetes Mellitus Type 2 Renal/ Medical History: Denies: Hx Peritoneal Dialysis GI Medical History: Denies: Hx Hepatitis, Hx Hiatal Hernia, Hx Ulcer Musculoskeltal Medical History: Denies Hx Arthritis Psychiatric Medical History: Reports: Hx Depression Infectious Medical History: Denies: Hx Hepatitis Past Surgical History: Reports: Hx Hysterectomy, Hx Tonsillectomy. Denies: Hx Mastectomy, Hx Open Heart Surgery, Hx Pacemaker - Immunizations Hx Diphtheria, Pertussis, Tetanus Vaccination: Yes Hx Pneumococcal Vaccination: 10/22/13 Review of Systems - Review of Systems Notes: REVIEW OF SYSTEMS: CONSTITUTIONAL : Denies fever, chills, or sweats. Denies recent illness. Denies weight loss, recent hospitalizations. EENT: Denies visula changes, eye pain. Denies nasal or sinus congestion or discharge. Denies sore throat, oral lesions, difficulty swallowing. CARDIOVASCULAR: Denies palpitations or racing or irregular heart beat. Denies lower extremity edema. RESPIRATORY: Denies cough, cold, or chest congestion. Denies shortness of breath, difficulty breathing, or wheezing. GASTROINTESTINAL: Denies abdominal pain or distention. Denies nausea, vomiting , or diarrhea. Denies blood in vomitus, stools, or per rectum. Denies black, tarry stools. Denies constipation. GENITOURINARY: Denies difficulty urinating, painful urination, burning, frequency, blood in urine, or vaginal discharge. MUSCULOSKELETAL: Denies back or neck pain or stiffness. Denies joint pain or swelling. SKIN: Denies rash, lesions or sores. HEMATOLOGIC : Denies easy bruising or bleeding. LYMPHATIC: Denies swollen, enlarged glands. NEUROLOGICAL: Denies confusion or altered mental status. Denies passing out or loss of consciousness. Denies dizziness or lightheadedness. Denies headache. Denies weakness or paralysis or loss of use of either side. Denies problems with gait or speech. Denies sensory loss, numbness, or tingling. Denies seizures. PSYCHIATRIC: Denies anxiety or stress. Denies depression, suicidal ideation, or homicidal ideation. Physical Exam - Vital signs Vitals: Pulse Ox 95 03/21/18 03:14 - Notes Notes: PHYSICAL EXAMINATION: GENERAL: Well-appearing, well-nourished and in no acute distress. HEAD: Atraumatic, normocephalic. EYES: Pupils equal round and reactive to light, extraocular movements intact, conjunctiva are normal. ENT: Nares patent, oropharynx clear without exudates. Moist mucous membranes. NECK: Normal range of motion, supple without lymphadenopathy LUNGS: Breath sounds clear to auscultation bilaterally and equal. No wheezes rales or rhonchi. HEART: Regular rate and rhythm without murmurs ABDOMEN: Soft, nontender, nondistended abdomen. No guarding, no rebound. No masses appreciated. Female : deferred Musculoskeletal: Normal range of motion, no pitting or edema. No cyanosis. NEUROLOGICAL: Cranial nerves grossly intact. Normal speech, normal gait. Normal sensory, motor exams PSYCH: Normal mood, normal affect. SKIN: Warm, Dry, normal turgor, no rashes or lesions noted. Course - Re-evaluation Re-evalutation: Laboratory 03/21/18 03/21/18 03/21/18 03:39 03:39 03:39 WBC 9.5 RBC 4.99 Hgb 13.3 Hct 40.2 MCV 81 MCH 26.7 L MCHC 33.1 RDW 15.3 H Plt Count 201 Seg Neutrophils % 80.3 H Lymphocytes % 12.5 L Monocytes % 5.3 Eosinophils % 1.4 Basophils % 0.5 Absolute Neutrophils 7.6 Absolute Lymphocytes 1.2 Absolute Monocytes 0.5 Absolute Eosinophils 0.1 Absolute Basophils 0.0 PT INR APTT Sodium 140.4 Potassium 4.4 Chloride 100 Carbon Dioxide 28 Anion Gap 12 BUN 23 H Creatinine 0.72 Est GFR ( Amer) > 60 Est GFR (Non-Af Amer) > 60 Glucose 231 H Calcium 9.7 Total Bilirubin 0.5 Direct Bilirubin 0.4 Neonat Total Bilirubin Not Reportable Neonat Direct Bilirubin Not Reportable Neonat Indirect Bili Not Reportable AST 21 ALT 24 Alkaline Phosphatase 144 H Creatine Kinase 47 CK-MB (CK-2) 1.25 Troponin I 0.017 NT-Pro-B Natriuret Pep 747 H Total Protein 7.9 Albumin 4.3 03/21/18 03:39 WBC RBC Hgb Hct MCV MCH MCHC RDW Plt Count Seg Neutrophils % Lymphocytes % Monocytes % Eosinophils % Basophils % Absolute Neutrophils Absolute Lymphocytes Absolute Monocytes Absolute Eosinophils Absolute Basophils PT 12.5 INR 0.89 APTT 20.3 L Sodium Potassium Chloride Carbon Dioxide Anion Gap BUN Creatinine Est GFR ( Amer) Est GFR (Non-Af Amer) Glucose Calcium Total Bilirubin Direct Bilirubin Neonat Total Bilirubin Neonat Direct Bilirubin Neonat Indirect Bili AST ALT Alkaline Phosphatase Creatine Kinase CK-MB (CK-2) Troponin I NT-Pro-B Natriuret Pep Total Protein Albumin Chest X-Ray 03/21/18 03:14 IMPRESSION: 1. No acute pulmonary process identified. 03/21/18 05:16 83-year-old female with atrial fibrillation, hypertension, type 2 diabetes, hyperlipidemia presents with complaint of right upper chest pain that started 2 hours prior to arrival while at rest. Patient states the pain awoke her from sleep. She describes it as located in the right upper chest, a dull ache that does not radiate. Pain is not worse with movement but it was relieved with nitro. Denies any associated nausea, diaphoresis, lightheadedness. She denies any recent illnesses. Upon arrival patient was placed on registered nurse cardiac and an EKG was obtained. She received nitro prior to arrival and states that this did reduce her pain. Patient's initial cardiac enzymes are within normal limits. ABC shows no leukocytosis or anemia. BMP shows no electrolyte abnormalities. Patient was administered aspirin, Zofran and fentanyl during her ED course. On reevaluation pain is improved but still present. Patient will be admitted for ACS rule out by Dr. Koenig 03/21/18 05:17 - Vital Signs Vital signs: Temp Pulse Resp BP Pulse Ox 95 03/21/18 03:14 - Laboratory Result Diagrams: 03/21/18 03:39 03/21/18 03:39 Laboratory results interpreted by me: 03/21/18 03/21/18 03/21/18 03:39 03:39 03:39 MCH 26.7 L RDW 15.3 H Seg Neutrophils % 80.3 H Lymphocytes % 12.5 L APTT BUN 23 H Glucose 231 H Alkaline Phosphatase 144 H NT-Pro-B Natriuret Pep 747 H 03/21/18 03:39 MCH RDW Seg Neutrophils % Lymphocytes % APTT 20.3 L BUN Glucose Alkaline Phosphatase NT-Pro-B Natriuret Pep - Diagnostic Test Radiology reviewed: Image reviewed, Reports reviewed - EKG Interpretation by Me EKG shows normal: Sinus rhythm Rate: Normal Rhythm: NSR Heart block present: 1st Degree Discharge - Discharge Clinical Impression: First degree AV block Chest pain Qualifiers: Chest pain type: unspecified Qualified Code(s): R07.9 - Chest pain, unspecified CHF (congestive heart failure) Qualifiers: Heart failure type: unspecified Heart failure chronicity: unspecified Qualified Code(s): I50.9 - Heart failure, unspecified Condition: Good Disposition: ADMITTED OBSERVATION Admitting Provider: Arya Unit Admitted: Telemetry
[2018-03-21 03:53] LABS: ABSOLUTE EOSINOPHILS # (AUTO) 0.1 10^3/uL (0.0-0.6); ABSOLUTE LYMPHOCYTES (AUTO) 1.2 10^3/uL (0.5-4.7); ABSOLUTE MONOCYTES (AUTO) 0.5 10^3/uL (0.1-1.4); ABSOLUTE NEUT (AUTO) 7.6 10^3/uL (1.7-8.2); BASOPHILS % (AUTO) 0.5 % (0-2); EOSINOPHILS % (AUTO) 1.4 % (0-6); HEMATOCRIT 40.2 % (36.0-47.0); HEMOGLOBIN 13.3 g/dL (12.0-15.5); LYMPHOCYTES % (AUTO) 12.5 % (13-45); MEAN CORPUSCULAR HEMOGLOBIN 26.7 pg (27.0-33.4); MEAN CORPUSCULAR HGB CONC 33.1 g/dL (32.0-36.0); MEAN CORPUSCULAR VOLUME 81 fl (80-97); MONOCYTES % (AUTO) 5.3 % (3-13); PLATELET COUNT 201 10^3/uL (150-450); RED BLOOD COUNT 4.99 10^6/uL (3.72-5.28); RED CELL DISTRIBUTION WIDTH 15.3 % (11.5-14.0); SEGMENTED NEUTROPHILS % (AUTO) 80.3 % (42-78); TOTAL CELLS COUNTED % (AUTO) 100 %; WHITE BLOOD COUNT 9.5 10^3/uL (4.0-10.5)
--- NOTE | 2018-03-21 03:57 | RADIOLOGY REPORT (SQ) ---
EXAM DESCRIPTION: Single view of the chest CLINICAL HISTORY: CP COMPARISON: 08/01/2017 FINDINGS: Single frontal view of the chest. Left-sided pacemaker. Low lung volumes. No consolidation, pneumothorax, or pleural effusion. No displaced rib fractures identified. Upper abdominal soft tissues are unremarkable. IMPRESSION: 1. No acute pulmonary process identified.
[2018-03-21 04:02] LABS: ALANINE AMINOTRANSFERASE 24 U/L (9-52); ALBUMIN 4.3 g/dL (3.5-5.0); ALKALINE PHOSPHATASE 144 U/L (38-126); ASPARTATE AMINO TRANSFERASE 21 U/L (14-36); BILIRUBIN,DIRECT 0.4 mg/dL (0.0-0.4); BILIRUBIN,TOTAL 0.5 mg/dL (0.2-1.3); BLOOD UREA NITROGEN 23 mg/dL (7-20); CALCIUM 9.7 mg/dL (8.4-10.2); CARBON DIOXIDE 28 mmol/L (22-30); CREATINE KINASE 47 U/L (30-135); GLUCOSE 231 mg/dL (75-110); POTASSIUM 4.4 mmol/L (3.6-5.0); SODIUM 140.4 mmol/L (137-145); TOTAL PROTEIN 7.9 g/dL (6.3-8.2)
[2018-03-21 04:03] LABS: ANION GAP 12 (5-19); CHLORIDE 100 mmol/L (98-107)
[2018-03-21 04:12] LABS: INTERNATIONAL RATION (INR) 0.89; PROTHROMBIN TIME 12.5 SEC (11.4-15.4)
[2018-03-21 04:13] LABS: PARTIAL THROMBOPLASTIN TIME 20.3 SEC (23.5-35.8)
[2018-03-21 04:14] LABS: CREATINE KINASE MB 1.25 ng/mL (<4.55); TROPONIN I 0.017 ng/mL
[2018-03-21] MEDS ORDERED: FENTANYL CITRATE INJ/PF 100 MCG/2 ML AMPUL IV ONE (04:50)
[2018-03-21] MEDS ORDERED: ONDANSETRON HCL INJ/PF 4 MG/2 ML SDV IV ONE (05:20)
[2018-03-21 08:11] LABS: INTERNATIONAL RATION (INR) 0.97; PROTHROMBIN TIME 13.4 SEC (11.4-15.4)
--- NOTE | 2018-03-21 08:41 | PDOC H&P ---
History of Present Illness Admission Date/PCP: 03/21/18 05:05 JEANNETTE JYOTSNALilian Patient complains of: Right sided chest pain History of Present Illness: RAJWINDER BOONE is a 83 year old female known to my practice presented to the ED with right sided chest pain that woke her up from slep. She described pain as initially dull and achy but progressively worsen and necessitate her coming to the ED. She denied any associated palpitation, diaphoresis, nausea, vomiting or radiation of pain into her neck or upper extremities. No numbness or tingling in her hands or fingers. She reported intermittent episodes of chest pain in the past both at rest and with exertion that resolved with rest. She claiemd compliance with her medications. 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 Past Medical History Cardiac Medical History: Reports: Atrial Fibrillation, Myocardial Infarction - 2yrs ago?, Hyperlipidema, Hypertension - MEDICATION Denies: Coronary Artery Disease Pulmonary Medical History: Reports: Bronchitis Denies: Asthma, Chronic Obstructive Pulmonary Disease (COPD), Pneumonia Neurological Medical History: Denies: Seizures Endocrine Medical History: Reports: Diabetes Mellitus Type 2 GI Medical History: Denies: Hepatitis, Hiatal Hernia Musculoskeltal Medical History: Denies: Arthritis Psychiatric Medical History: Reports: Depression Hematology: Denies: Anemia, Sickle Cell Disease Past Surgical History Past Surgical History: Reports: Hysterectomy, Tonsillectomy Denies: Mastectomy, Pacemaker Social History Lives with: Family Smoking Status: Never Smoker Frequency of Alcohol Use: Occasional Hx Recreational Drug Use: No Drugs: None Hx Prescription Drug Abuse: No Family History Family History: None Parental Family History Reviewed: Yes Children Family History Reviewed: Yes Sibling(s) Family History Reviewed.: Yes Medication/Allergy Allergies/Adverse Reactions: codeine [Codeine] Allergy (Mild, Verified 12/04/16 04:13) unknown aspirin [Aspirin] Adverse Reaction (Verified 03/21/18 06:43) Review of Systems Constitutional: ABSENT: chills, fever(s), headache(s), weight gain, weight loss Eyes: ABSENT: visual disturbances Ears: PRESENT: hearing changes Nose, Mouth, and Throat: ABSENT: as per HPI, headache(s), mouth pain, sore throat, vertigo, other Cardiovascular: PRESENT: chest pain - right sided. ABSENT: dyspnea on exertion , edema, orthropnea, palpitations Respiratory: PRESENT: dyspnea - intermittently. ABSENT: as per HPI, cough, hemoptysis, sputum, other Gastrointestinal: ABSENT: abdominal pain, constipation, diarrhea, hematemesis, hematochezia, nausea, vomiting Genitourinary: ABSENT: dysuria, hematuria Musculoskeletal: ABSENT: joint swelling, muscle weakness Integumentary: ABSENT: diaphoresis, rash, wounds Neurological: ABSENT: abnormal gait, abnormal speech, confusion, dizziness, focal weakness, syncope Psychiatric: PRESENT: depression. ABSENT: as per HPI, anxiety, hallucinations, homidical ideation, suicidal ideation, other Endocrine: ABSENT: cold intolerance, heat intolerance, polydipsia, polyuria Hematologic/Lymphatic: ABSENT: easy bleeding, easy bruising, lymphadenopathy Allergic/Immunologic: ABSENT: seasonal rhinorrhea Physical Exam Vital Signs: Temp Pulse Resp BP Pulse Ox 98.6 F 66 18 162/85 H 96 03/21/18 08:01 03/21/18 08:01 03/21/18 08:01 03/21/18 08:01 03/21/18 08:01 Intake & Output 03/20/18 03/21/18 03/22/18 06:59 06:59 06:59 Weight 87.5 kg General appearance: PRESENT: no acute distress, obese Head exam: PRESENT: atraumatic, normocephalic Eye exam: PRESENT: conjunctiva pink, EOMI, PERRLA. ABSENT: scleral icterus Ear exam: PRESENT: normal external ear exam Mouth exam: PRESENT: moist, tongue midline Neck exam: PRESENT: full ROM. ABSENT: carotid bruit, JVD, lymphadenopathy, thyromegaly Respiratory exam: PRESENT: clear to auscultation merna Cardiovascular exam: PRESENT: irregular rhythm, RRR, +S1, +S2. ABSENT: diastolic murmur, systolic murmur Pulses: PRESENT: normal dorsalis pedis pul, +2 pedal pulses bilateral Vascular exam: PRESENT: normal capillary refill. ABSENT: pallor GI/Abdominal exam: PRESENT: normal bowel sounds, soft. ABSENT: distended, guarding, mass, organolmegaly, rebound, tenderness Rectal exam: PRESENT: deferred Extremities exam: ABSENT: pedal edema Musculoskeletal exam: PRESENT: normal inspection Neurological exam: PRESENT: alert, awake, oriented to person, oriented to place , oriented to time, oriented to situation, CN II-XII grossly intact. ABSENT: motor sensory deficit Psychiatric exam: PRESENT: appropriate affect, normal mood. ABSENT: homicidal ideation, suicidal ideation Skin exam: PRESENT: dry, intact, warm. ABSENT: cyanosis, rash Results Laboratory Results: 03/21/18 07:31 Troponin I 0.023 Impressions: Chest X-Ray 03/21/18 03:14 IMPRESSION: 1. No acute pulmonary process identified. Assessment & Plan - Diagnosis (1) Chest pain with high risk for cardiac etiology Is this a current diagnosis for this admission?: Yes Plan: See admitting attending physician orders. (2) HTN (hypertension) Qualifiers: Hypertension type: essential hypertension Qualified Code(s): I10 - Essential (primary) hypertension Is this a current diagnosis for this admission?: Yes Plan: See admitting attending physician orders. (3) Diabetes mellitus type 2 in obese Is this a current diagnosis for this admission?: Yes Plan: See admitting attending physician orders. (4) HLD (hyperlipidemia) Qualifiers: Hyperlipidemia type: pure hypercholesterolemia Qualified Code(s): E78.00 - Pure hypercholesterolemia, unspecified Is this a current diagnosis for this admission?: Yes Plan: See admitting attending physician orders. (5) Mixed anxiety and depressive disorder Is this a current diagnosis for this admission?: Yes Plan: See admitting attending physician orders. (6) Old [place] (myocardial infarction) Is this a current diagnosis for this admission?: Yes Plan: See admitting attending physician orders. - Time Time Spent: 50 to 70 Minutes Medications reviewed and adjusted accordingly: Yes Anticipated discharge: Home Within: within 24 hours - Inpatient Certification Based on my medical assessment, after consideration of the patient's comorbidities, presenting symptoms, or acuity I expect that the services needed warrant INPATIENT care.: No I certify that my determination is in accordance with my understanding of Medicare's requirements for reasonable and necessary INPATIENT services [42 CFR 412.3e].: No Post Hospital Care: D/C Doping Supervisor Documentation - Plan Summary Plan Summary: See admitting attending physician orders.
--- NOTE | 2018-03-21 09:00 | EKG REPORT ---
SEVERITY:- ABNORMAL ECG - SINUS RHYTHM FIRST DEGREE AV BLOCK : Confirmed by: Rajni Liu 21-Mar-2018 09:00:07
[2018-03-21] MEDS ORDERED: DEXTROSE 40% GEL 15 GM TUBE X 2 PO PRN (09:01)
[2018-03-21] MEDS ORDERED: GLUCAGON,HUMAN RECOMB 1 MG INJ IM PRN (09:01)
[2018-03-21] MEDS ORDERED: DEXTROSE 50%-WATER SYRINGE 25 GM/50 ML DOSE IV PRN (09:01)
[2018-03-21] MEDS ORDERED: DEXTROSE 40% GEL 15 GM TUBE PO PRN (09:01)
[2018-03-21] MEDS ORDERED: DEXTROSE 50%-WATER SYRINGE 12.5 GM/25 ML DOSE IV PRN (09:01)
[2018-03-21] MEDS: INSULIN LISPRO 100 UNIT/ML 3 ML VIAL SUBCUT PRN ×3 (11:49→21:08)
[2018-03-21] MEDS ORDERED: HYDROCHLOROTHIAZIDE 25 MG TABLET PO ONE (12:00)
[2018-03-21] MEDS ORDERED: AMLODIPINE BESYLATE 5 MG TABLET PO ONE (12:00)
[2018-03-21] MEDS ORDERED: VALSARTAN 160 MG TABLET PO ONE ×2 (12:00→16:15)
[2018-03-21 12:07] VITALS: BP 133/52
[2018-03-21] MEDS ORDERED: ATORVASTATIN CALCIUM 40 MG TABLET PO SCH (22:00)
[2018-03-21] MEDS ORDERED: WARFARIN SODIUM 3 MG TABLET PO SCH (22:00)
--- NOTE | 2018-03-22 08:26 | PDOC DISCHARGE SUMMARY ---
General - Admit/Disc Date/PCP Admission Date/Primary Care Provider: 03/21/18 05:05 JEANNETTE NEIDA Discharge Date: 03/22/18 - Discharge Diagnosis (1) Chest pain with high risk for cardiac etiology Is this a current diagnosis for this admission?: Yes Summary: Resolved (2) HTN (hypertension) Is this a current diagnosis for this admission?: Yes Summary: Continue on all preadmission medication management (3) Diabetes mellitus type 2 in obese Is this a current diagnosis for this admission?: Yes Summary: Continue on all preadmission medication management (4) HLD (hyperlipidemia) Is this a current diagnosis for this admission?: Yes Summary: Continue on all preadmission medication management (5) Mixed anxiety and depressive disorder Is this a current diagnosis for this admission?: Yes Summary: Continue on all preadmission medication management (6) Old [place] (myocardial infarction) Is this a current diagnosis for this admission?: Yes Summary: Continue on all preadmission medication management - Additional Information Resuscitation Status: Full Code Discharge Diet: Cardiac, Diabetic Discharge Activity: Activity As Tolerated Home Medications: Amlodipine Besylate [Norvasc 5 mg Tablet] 5 mg PO DAILY 03/21/18 Donepezil HCl [Aricept 5 mg Tablet] 5 mg PO DAILY 03/21/18 Hydrochlorothiazide [Hydrodiuril 25 mg Tablet] 25 mg PO DAILY 03/21/18 Rosuvastatin Calcium [Crestor 20 mg Tablet] 20 mg PO DAILY 03/21/18 Sertraline HCl [Zoloft 50 mg Tablet] 50 mg PO DAILY 03/21/18 Valsartan [Diovan] 320 mg PO DAILY 03/21/18 Warfarin Sodium [Coumadin 3 mg Tablet] 3 mg PO DAILY 03/21/18 History of Present Illness History of Present Illness: RAJWINDER BOONE is a 83 year old female known to my practice presented to the ED with right sided chest pain that woke her up from slep. She described pain as initially dull and achy but progressively worsen and necessitate her coming to the ED. She denied any associated palpitation, diaphoresis, nausea, vomiting or radiation of pain into her neck or upper extremities. No numbness or tingling in her hands or fingers. She reported intermittent episodes of chest pain in the past both at rest and with exertion that resolved with rest. She claiemd compliance with her medications. 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 Hospital Course Hospital Course: Patient presenting symptoms resolved without any recurrence since admission. her cardiac enzymes were within normal limits for this facility. Her glycemic control is fair. Her vital remain stable. Her INR is sub-therapeutic but she will follow up in the office with 7 days for recheck and further management. She will follow up in the office as instructed upon discharge. Physical Exam Vital Signs: Temp Pulse Resp BP Pulse Ox 97.2 F 71 20 133/52 H 95 03/21/18 12:01 03/22/18 07:00 03/21/18 12:01 03/21/18 12:01 03/21/18 12:01 Intake & Output 03/21/18 03/22/18 03/23/18 06:59 06:59 06:59 Intake Total 1115 Balance 1115 Weight 87.5 kg General appearance: PRESENT: no acute distress Head exam: PRESENT: atraumatic, normocephalic Eye exam: PRESENT: conjunctiva pink, EOMI, PERRLA. ABSENT: scleral icterus Mouth exam: PRESENT: moist Neck exam: PRESENT: full ROM. ABSENT: carotid bruit, JVD, lymphadenopathy, thyromegaly Respiratory exam: PRESENT: clear to auscultation merna Cardiovascular exam: PRESENT: RRR, +S1, +S2. ABSENT: diastolic murmur, rubs, systolic murmur Vascular exam: PRESENT: normal capillary refill. ABSENT: pallor GI/Abdominal exam: PRESENT: normal bowel sounds, soft. ABSENT: distended, guarding, mass, organolmegaly, rebound, tenderness Extremities exam: ABSENT: pedal edema Musculoskeletal exam: PRESENT: deformity - related to multipl joints involvment with arthritis Neurological exam: PRESENT: alert, awake, oriented to person, oriented to place , oriented to time, oriented to situation, CN II-XII grossly intact. ABSENT: motor sensory deficit Psychiatric exam: PRESENT: appropriate affect, normal mood. ABSENT: homicidal ideation, suicidal ideation Skin exam: PRESENT: dry, intact, warm. ABSENT: cyanosis, rash Results Laboratory Results: 03/21/18 07:31 Troponin I 0.023 Impressions: Chest X-Ray 03/21/18 03:14 IMPRESSION: 1. No acute pulmonary process identified. Qualifiers - * PATIENT BEING DISCHARGED WITH ANY OF THE FOLLOWING DIAGNOSIS: No Plan Discharge Plan: Discharge home today. Follow up in the office as instructed upon discharge. Time Spent: Less than 30 Minutes
[2018-03-22] MEDS ORDERED: HYDROCHLOROTHIAZIDE 25 MG TABLET PO SCH (10:00)
[2018-03-22] MEDS ORDERED: VALSARTAN 160 MG TABLET PO SCH (10:00)
[2018-03-22] MEDS ORDERED: AMLODIPINE BESYLATE 5 MG TABLET PO SCH (10:00)
[2018-03-22] MEDS ORDERED: (PENDING PHARMACY ID) (Valsartan [Diovan] 320 MG) PO SCH (10:00)
[2018-03-22] MEDS ORDERED: (PENDING PHARMACY ID) (Warfarin Sodium 3 MG) PO SCH (10:00)
[2018-03-22] MEDS ORDERED: (PENDING PHARMACY ID) (Rosuvastatin Calcium [Crestor 20 Mg Tablet] 20 MG) PO SCH (10:00)
[2018-03-22] MEDS ORDERED: DONEPEZIL HCL 5 MG TABLET PO SCH (10:00)
[2018-03-22] MEDS ORDERED: SERTRALINE HCL 50 MG TABLET PO SCH (10:00)
[2018-03-22 10:06] LABS: CREATINE KINASE MB 1.53 ng/mL (<4.55); TROPONIN I 0.016 ng/mL
[2018-03-22] MEDS: INSULIN LISPRO 100 UNIT/ML 3 ML VIAL SUBCUT PRN (11:12)
== END 2018-03-22 11:14 | disposition home or self-care (01) ==
LOC: ER 03:12 → EH 05:05 → 4N 08:06
PROVIDERS: ADMIT Internal Medicine Geriatric Medicine; ATTEND Internal Medicine Geriatric Medicine
DX: R07.9 Chest pain, unspecified (principal); I10 Essential (primary) hypertension; E11.9 Type 2 diabetes mellitus without complications; E66.9 Obesity, unspecified; Z68.31 Body mass index [BMI] 31.0-31.9, adult; E78.00 Pure hypercholesterolemia, unspecified; F41.3 Other mixed anxiety disorders; F32.9 Major depressive disorder, single episode, unspecified; I48.2 Chronic atrial fibrillation; I25.10 Atherosclerotic heart disease of native coronary artery without angina pectoris; I25.2 Old myocardial infarction; M15.9 Polyosteoarthritis, unspecified; R06.09 Other forms of dyspnea; I44.0 Atrioventricular block, first degree; Z79.899 Other long term (current) drug therapy; Z79.02 Long term (current) use of antithrombotics/antiplatelets; Z95.0 Presence of cardiac pacemaker; Z86.73 Personal history of transient ischemic attack (TIA), and cerebral infarction without residual deficits
CPT/HCPCS: 93005; 99285; 96374; 96375; 36415 ×2; 82553 ×2; 82962 ×2; 82550 ×2; 85025; 85610; 85730; 80053; 84484 ×2; 83880; 71045; 93010; G0378 ×2; A9270 ×9; J3010; J2405; J1815; J3490

== ENCOUNTER 2018-04-17 03:57 | Emergency (ER) | payer MEDICARE ==
--- NOTE | 2018-04-17 04:25 | ER Document Report ---
ED Respiratory Problem - General Stated Complaint: SHORTNESS OF BREATH Time Seen by Provider: 04/17/18 04:12 Notes: Patient is an 83-year-old female who comes from home by EMS for chief complaint of shortness of breath. She states that she woke up feeling short of breath and called the ambulance. She has a history of sleep apnea, she was not wearing her CPAP. She states that she feels like her chest is congested but she denies any specific cough, productive cough, fever, she denies any chest pain, abdominal pain, flank pain. 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 Former smoker, denies COPD. Denies any lower extremity swelling out of the ordinary. TRAVEL OUTSIDE OF THE [place] IN LAST 30 DAYS: No - Related Data Allergies/Adverse Reactions: codeine [Codeine] Allergy (Mild, Verified 12/04/16 04:13) unknown aspirin [Aspirin] Adverse Reaction (Verified 03/21/18 06:43) Past Medical History - General Information source: Patient, Emergency Med Personnel - Social History Smoking Status: Never Smoker Frequency of alcohol use: None Drug Abuse: None Lives with: Family Family History: None - Past Medical History Cardiac Medical History: Reports: Hx Atrial Fibrillation, Hx Heart Attack - 2yrs ago?, Hx Hypercholesterolemia, Hx Hypertension - MEDICATION Denies: Hx Coronary Artery Disease Pulmonary Medical History: Reports: Hx Bronchitis Denies: Hx Asthma, Hx COPD, Hx Pneumonia Neurological Medical History: Reports: Hx Cerebrovascular Accident - 2yrs ago ? . Denies: Hx Seizures Endocrine Medical History: Reports: Hx Diabetes Mellitus Type 2 Renal/ Medical History: Denies: Hx Peritoneal Dialysis GI Medical History: Denies: Hx Gastroesophageal Reflux Disease, Hx Hepatitis, Hx Hiatal Hernia, Hx Ulcer Musculoskeltal Medical History: Denies Hx Arthritis Psychiatric Medical History: Reports: Hx Depression Infectious Medical History: Denies: Hx Hepatitis Past Surgical History: Reports: Hx Hysterectomy, Hx Tonsillectomy. Denies: Hx Mastectomy, Hx Open Heart Surgery, Hx Pacemaker - Immunizations Hx Diphtheria, Pertussis, Tetanus Vaccination: Yes Hx Pneumococcal Vaccination: 10/22/13 Review of Systems - Review of Systems Constitutional: No symptoms reported EENT: No symptoms reported Cardiovascular: No symptoms reported Respiratory: See HPI Gastrointestinal: No symptoms reported Genitourinary: No symptoms reported Female Genitourinary: No symptoms reported Musculoskeletal: No symptoms reported Skin: No symptoms reported Hematologic/Lymphatic: No symptoms reported Neurological/Psychological: No symptoms reported Physical Exam - Vital signs Vitals: Temp Pulse Resp BP Pulse Ox 98.3 F 63 22 H 196/89 H 96 04/17/18 03:57 04/17/18 03:57 04/17/18 03:57 04/17/18 03:57 04/17/18 03:57 - Notes Notes: GENERAL: Alert, interacts well. No acute distress. HEAD: Normocephalic, atraumatic. EYES: Pupils equal, round, and reactive to light. Extraocular movements intact. ENT: Oral mucosa moist, tongue midline. Very hard of hearing. NECK: Full range of motion. Supple. Trachea midline. LUNGS: Clear to auscultation bilaterally, no wheezes, rales, or rhonchi. No respiratory distress. Pacemaker scar in the left upper chest. HEART: Regular rate and rhythm. No murmur ABDOMEN: Soft, non-tender. Non-distended. Bowel sounds present in all 4 quadrants. EXTREMITIES: Moves all 4 extremities spontaneously. No edema, normal radial and dorsalis pedis pulses bilaterally. No cyanosis. BACK: no cervical, thoracic, lumbar midline tenderness. No saddle anesthesia, normal distal neurovascular exam. NEUROLOGICAL: Alert and oriented x3. Normal speech. [cranial nerves II through XII grossly intact]. PSYCH: Normal affect, normal mood. Intermittently anxious. SKIN: Warm, dry, normal turgor. No rashes or lesions noted. Course - Re-evaluation Re-evalutation: Patient is well-appearing on exam, no labored breathing, good lung sounds on auscultation, no hypoxia, soft abdomen, alert and oriented. Workup pending. Chest x-ray with trace edema, no acute findings otherwise. EKG showing paced ventricular rhythm. CBC, chemistry generally unremarkable. Troponin is not elevated. BNP is mildly elevated but still close to what she consistently has in the past. Reevaluated patient 3 times. No return of symptoms. On oxygen now because of her sleep apnea, I turned off the oxygen and patient did not have any hypoxia or shortness of breath. Patient denying difficulty ambulating, states she is hungry. States she is hoping she can go home. I spoke with Dr. Carrasquillo, patient's provider, because of her BNP and chest x- ray he recommends a dose of Lasix and close follow-up in the office for additional evaluation and management. Discussed this with patient, discussed return precautions, patient states satisfaction and agreement. - Vital Signs Vital signs: Temp Pulse Resp BP Pulse Ox 98.3 F 63 20 167/72 H 91 L 04/17/18 03:57 04/17/18 03:57 04/17/18 07:02 04/17/18 07:02 04/17/18 07:02 - Laboratory Result Diagrams: 04/17/18 04:35 04/17/18 04:35 Laboratory results interpreted by me: 04/17/18 04/17/18 04:35 04:35 Hgb 10.3 L Hct 30.9 L MCH 26.9 L RDW 15.1 H Seg Neutrophils % 82.9 H Lymphocytes % 9.7 L NT-Pro-B Natriuret Pep 1490 H Discharge - Discharge Clinical Impression: Shortness of breath Condition: Stable Additional Instructions: Your workup shows a little bit of fluid on your lungs, you have been given a medication for this today, follow-up within 1-[address] Carrasquillo in the office for additional management. I spoke to him this morning. Please wear your CPAP at night to avoid low oxygen or shortness of breath while sleeping. Return if you worsen including fever, vomiting, difficulty breathing, chest pain , or any other concerning or worsening symptoms. Referrals: JEANNETTE CARRASQUILLO MD [Primary Care Provider] - Follow up as needed
[2018-04-17 04:47] LABS: VENOUS BLOOD BASE EXCESS 3.1 mmol/L; VENOUS BLOOD HCO3 29.1 mmol/L (20-32); VENOUS BLOOD PCO2 51.1 mmHg (35-63); VENOUS BLOOD PH 7.37 (7.30-7.42)
--- NOTE | 2018-04-17 05:03 | RADIOLOGY REPORT (SQ) ---
EXAM DESCRIPTION: XR CHEST 1 VIEW COMPLETED DATE/TME: 04/17/2018 04:19 CLINICAL HISTORY: shortness of breath COMPARISON: 03/21/2018 FINDINGS: Single frontal view of the chest. Left sided pacemaker. Cardiomegaly. Pulmonary vascular congestion with possible mild interstitial edema. No pneumothorax or large effusion. Low lung volumes. Degenerative change of the spine. No definite acute osseous abnormalities. Upper abdominal soft tissues are unremarkable. IMPRESSION: 1. Cardiomegaly with mild interstitial edema.
[2018-04-17 05:09] LABS: ALANINE AMINOTRANSFERASE 18 U/L (9-52); ALBUMIN 3.7 g/dL (3.5-5.0); ALKALINE PHOSPHATASE 100 U/L (38-126); ANION GAP 10 (5-19); ASPARTATE AMINO TRANSFERASE 15 U/L (14-36); BILIRUBIN,DIRECT 0.3 mg/dL (0.0-0.4); BILIRUBIN,TOTAL 0.7 mg/dL (0.2-1.3); BLOOD UREA NITROGEN 18 mg/dL (7-20); CALCIUM 8.9 mg/dL (8.4-10.2); CARBON DIOXIDE 28 mmol/L (22-30); CHLORIDE 103 mmol/L (98-107); CREATINE KINASE 55 U/L (30-135); GLUCOSE 108 mg/dL (75-110); POTASSIUM 4.6 mmol/L (3.6-5.0); SODIUM 140.7 mmol/L (137-145); TOTAL PROTEIN 6.6 g/dL (6.3-8.2)
[2018-04-17 05:21] LABS: CREATINE KINASE MB 1.71 ng/mL (<4.55); TROPONIN I 0.016 ng/mL
[2018-04-17 05:41] LABS: ABSOLUTE BASOPHILS # (AUTO) 0.1 10^3/uL (0.0-0.2); ABSOLUTE EOSINOPHILS # (AUTO) 0.1 10^3/uL (0.0-0.6); ABSOLUTE LYMPHOCYTES (AUTO) 0.8 10^3/uL (0.5-4.7); ABSOLUTE MONOCYTES (AUTO) 0.4 10^3/uL (0.1-1.4); ABSOLUTE NEUT (AUTO) 6.7 10^3/uL (1.7-8.2); BASOPHILS % (AUTO) 0.6 % (0-2); EOSINOPHILS % (AUTO) 1.5 % (0-6); HEMATOCRIT 30.9 % (36.0-47.0); HEMOGLOBIN 10.3 g/dL (12.0-15.5); LYMPHOCYTES % (AUTO) 9.7 % (13-45); MEAN CORPUSCULAR HEMOGLOBIN 26.9 pg (27.0-33.4); MEAN CORPUSCULAR HGB CONC 33.4 g/dL (32.0-36.0); MEAN CORPUSCULAR VOLUME 81 fl (80-97); MONOCYTES % (AUTO) 5.3 % (3-13); PLATELET COUNT 234 10^3/uL (150-450); RED BLOOD COUNT 3.83 10^6/uL (3.72-5.28); RED CELL DISTRIBUTION WIDTH 15.1 % (11.5-14.0); SEGMENTED NEUTROPHILS % (AUTO) 82.9 % (42-78); TOTAL CELLS COUNTED % (AUTO) 100 %; WHITE BLOOD COUNT 8.1 10^3/uL (4.0-10.5)
[2018-04-17] MEDS ORDERED: FUROSEMIDE 40 MG TABLET PO ONE (08:00)
[2018-04-17 09:47] VITALS: BP 165/90
--- NOTE | 2018-04-18 07:47 | EKG REPORT ---
SEVERITY:- ABNORMAL ECG - VENTRICULAR-PACED COMPLEXES FIRST DEGREE AV BLOCK PROLONGED QT INTERVAL : Confirmed by: Cindy Weinberg MD 18-Apr-2018 07:47:00
== END 2018-04-17 10:27 | disposition home or self-care (01) ==
LOC: ER 03:57
DX: R06.02 Shortness of breath (principal); R09.81 Nasal congestion; R05 Cough; R50.9 Fever, unspecified; I25.10 Atherosclerotic heart disease of native coronary artery without angina pectoris; I10 Essential (primary) hypertension; E11.9 Type 2 diabetes mellitus without complications; Z87.891 Personal history of nicotine dependence
CPT/HCPCS: 93005; 99285; 36415; 82553; 82550; 85025; 80053; 84484; 82803; 83880; 71045; 93010; A9270

== ENCOUNTER 2018-10-26 01:13 | Emergency (ER) | payer MEDICARE ==
--- NOTE | 2018-10-26 06:18 | RADIOLOGY REPORT (SQ) ---
EXAM DESCRIPTION: XR SHOULDER 2 OR MORE VIEWS COMPLETED DATE/TME: 10/26/2018 04:53 CLINICAL HISTORY: 83 years, Female, pain COMPARISON: None. NUMBER OF VIEWS: Three TECHNIQUE: Three views of the right shoulder LIMITATIONS: None. FINDINGS: There is no acute fracture or dislocation. The glenohumeral and AC joints appear intact. There is no large soft tissue swelling. IMPRESSION: No acute fracture or dislocation copyright 2010 [employer]- All Rights Reserved
--- NOTE | 2018-10-26 06:43 | ER Document Report ---
ED General - General Chief Complaint: Arm Pain Stated Complaint: RIGHT ARM PAIN Time Seen by Provider: 10/26/18 04:43 Notes: Patient is a 83-year-old female presents with complaint of right shoulder pain. She says is been ongoing since August. She thinks it may been related to the flu shot she first started noticing soreness in her right shoulder. She is follow-up with her primary care physician, Dr. Prater, about this but she is concerned because her shoulder continues to hurt and therefore she is come to the ER. She says no imaging studies have been done as of yet. She says she has been told is due to arthritis. She denies any redness or swelling. She denies any abnormal warmth. No fevers. No trauma. TRAVEL OUTSIDE OF THE [place] IN LAST 30 DAYS: No - Related Data Allergies/Adverse Reactions: codeine [Codeine] Allergy (Mild, Verified 12/04/16 04:13) unknown aspirin [Aspirin] Adverse Reaction (Verified 03/21/18 06:43) Past Medical History - Social History Smoking Status: Never Smoker Frequency of alcohol use: Rare Drug Abuse: None Family History: None Patient has suicidal ideation: No Patient has homicidal ideation: No - Past Medical History Cardiac Medical History: Reports: Hx Atrial Fibrillation, Hx Heart Attack - 2yrs ago?, Hx Hypercholesterolemia, Hx Hypertension - MEDICATION Denies: Hx Coronary Artery Disease Pulmonary Medical History: Reports: Hx Bronchitis Denies: Hx Asthma, Hx COPD, Hx Pneumonia Neurological Medical History: Reports: Hx Cerebrovascular Accident - 2yrs ago ?. Denies: Hx Seizures Endocrine Medical History: Reports: Hx Diabetes Mellitus Type 2 Renal/ Medical History: Denies: Hx Peritoneal Dialysis GI Medical History: Denies: Hx Gastroesophageal Reflux Disease, Hx Hepatitis, Hx Hiatal Hernia, Hx Ulcer Musculoskeletal Medical History: Denies Hx Arthritis Psychiatric Medical History: Reports: Hx Depression Infectious Medical History: Denies: Hx Hepatitis Past Surgical History: Reports: Hx Hysterectomy, Hx Tonsillectomy. Denies: Hx Mastectomy, Hx Open Heart Surgery, Hx Pacemaker - Immunizations Hx Diphtheria, Pertussis, Tetanus Vaccination: Yes Hx Pneumococcal Vaccination: 10/22/13 Review of Systems - Review of Systems Notes: My Normal Review Basic REVIEW OF SYSTEMS: CONSTITUTIONAL : Denies fever, chills, or sweats. Denies recent illness. RESPIRATORY: Denies cough, cold, or chest congestion. Denies shortness of breath, difficulty breathing, or wheezing. GASTROINTESTINAL: Denies abdominal pain. Denies nausea, vomiting, or diarrhea. MUSCULOSKELETAL: Right shoulder pain SKIN: Denies rash or skin lesions. NEUROLOGICAL: Denies sensory or motor loss. ALL OTHER SYSTEMS REVIEWED AND NEGATIVE. Physical Exam - Vital signs Vitals: Temp Pulse BP Pulse Ox 98.6 F 67 149/65 H 92 10/26/18 01:35 10/26/18 01:35 10/26/18 01:35 10/26/18 01:35 - Notes Notes: General Appearance: Well nourished, alert, cooperative, no acute distress, no obvious discomfort. Well-appearing. Vitals: reviewed, See vital signs table. Eyes: PERRL, EOMI, Conjuctiva clear Mouth: No decreasd moisture Extremities: strength 5/5 in all extremities, good pulses in all extremities, patient is some pain to palpation over the lateral superior aspect of the shoulder. She does not have any pain with flexion movement of the shoulder. She starts having pain when I go to do abduction of the shoulder. She has no pain with range of motion of the elbow. No pain into the wrist or hand. Good strength in the hand. Good distal sensation. Normal distal pulses. Normal capillary refill. No abnormal warmth or swelling to the right shoulder. Skin: warm, dry, appropriate color, no rash Neuro: speech clear, oriented x 3, normal affect, responds appropriately to questions. Course - Re-evaluation Re-evalutation: 10/26/18 08:10 Patient seems to have restriction in pain with abduction of the right shoulder. This suggests either she has arthritis possibly rotator cuff injury. Her x-ray is negative for any acute bony pathology such as fracture or dislocation. I informed her she should follow back up with her primary care doctor. She talked about the possibility of a MRI. Also offered to refer her to orthopedics but she says she prefers to follow-up with her primary care doctor. Patient encouraged to return to ER if she has any redness swelling or, signs of infection, or fever. Patient agrees with plan and will be discharged home. Dictation of this chart was performed using voice recognition software; therefore, there may be some unintended grammatical errors. - Vital Signs Vital signs: Temp Pulse Resp BP Pulse Ox 97.8 F 72 20 137/61 H 99 10/26/18 07:01 10/26/18 07:01 10/26/18 07:01 10/26/18 07:01 10/26/18 07:01 Discharge - Discharge Clinical Impression: Shoulder pain, right Condition: Good Disposition: HOME, SELF-CARE Additional Instructions: I do not know the exact cause of your shoulder pain. Based on my exam I suspect it is a structural issue such as arthritis or a rotator cuff injury. Please r eturn to the ER immediately if you develop redness or swelling to your shoulder, fevers, or feel that you are worsening. Please follow up closely with your primary care doctor to discuss whether or not an MRI would be appropriate to further evaluate your shoulder. Referrals: JEANNETTE CARRASQUILLO MD [Primary Care Provider] - Follow up in 3-5 days
[2018-10-26 07:03] VITALS: BP 137/61
== END 2018-10-26 07:03 | disposition home or self-care (01) ==
LOC: ER 01:13
DX: M25.511 Pain in right shoulder (principal); I10 Essential (primary) hypertension; Z88.5 Allergy status to narcotic agent; Z86.74 Personal history of sudden cardiac arrest; Z86.73 Personal history of transient ischemic attack (TIA), and cerebral infarction without residual deficits
CPT/HCPCS: 99283

== ENCOUNTER 2018-11-01 17:12 | Emergency (ER) | payer MEDICARE ==
--- NOTE | 2018-11-01 19:53 | ER Document Report ---
ED Medical Screen (RME) - General Chief Complaint: Arm Pain Stated Complaint: LEG/ARM PAIN Time Seen by Provider: 11/01/18 19:45 TRAVEL OUTSIDE OF THE [place] IN LAST 30 DAYS: No - HPI Notes: 11/01/18 19:52 Patient is a 83-year-old female that presents to the emergency department for chief complaint of right arm pain, right leg pain and feeling "cold". Patient reports pain in her right proximal arm for the last 2 months since receiving an influenza vaccine. She states the pain has been constant and is unchanged. She saw her primary care doctor about it a few weeks ago and was told that it will resolve on its own. She denies any change in the pain today. Patient also complaining of pain in her right lower extremity which is making it difficult to ambulate. She states that pain has been ongoing for the last few years since having a fall. She denies new fall or injury. She denies any change in the character of her right lower extremity pain from her baseline. She does not take pain medication at home. She does not want to take any pain medication today. She denies fevers. ROS: GENERAL: Denies fevers. Endorses chills CV: Denies chest pain PHYSICAL EXAMINATION: GENERAL: Well-appearing, well-nourished and in no acute distress. HEAD: Atraumatic, normocephalic. EYES: Pupils equal round extraocular movements intact, conjunctiva are normal. ENT: Nares patent NECK: Normal range of motion LUNGS: No respiratory distress Musculoskeletal: Normal range of motion NEUROLOGICAL: Normal speech, normal gait. PSYCH: Normal mood, normal affect. MDM: Patient seen and examined for rapid initial assessment. Vital signs reviewed. A comprehensive ED assessment and evaluation of the patient, analysis of test results and completion of the medical decision making process will be conducted by additional ED providers. - Related Data Allergies/Adverse Reactions: codeine [Codeine] Allergy (Mild, Verified 12/04/16 04:13) unknown aspirin [Aspirin] Adverse Reaction (Verified 03/21/18 06:43) Past Medical History - Past Medical History Cardiac Medical History: Reports: Hx Atrial Fibrillation, Hx Heart Attack - 2yrs ago?, Hx Hypercholesterolemia, Hx Hypertension - MEDICATION Denies: Hx Coronary Artery Disease Pulmonary Medical History: Reports: Hx Bronchitis Denies: Hx Asthma, Hx COPD, Hx Pneumonia Neurological Medical History: Reports: Hx Cerebrovascular Accident - 2yrs ago ?. Denies: Hx Seizures Endocrine Medical History: Reports: Hx Diabetes Mellitus Type 2 Renal/ Medical History: Denies: Hx Peritoneal Dialysis GI Medical History: Denies: Hx Gastroesophageal Reflux Disease, Hx Hepatitis, Hx Hiatal Hernia, Hx Ulcer Musculoskeltal Medical History: Denies Hx Arthritis Psychiatric Medical History: Reports: Hx Depression Infectious Medical History: Denies: Hx Hepatitis Past Surgical History: Reports: Hx Hysterectomy, Hx Tonsillectomy. Denies: Hx Mastectomy, Hx Open Heart Surgery, Hx Pacemaker - Immunizations Hx Diphtheria, Pertussis, Tetanus Vaccination: Yes History of Influenza Vaccine for 07/2017 - 12/2017 Season: Yes Influenza Administration Date for 07/2017 - 12/2017 Season: 07/22/17 Physical Exam - Vital signs Vitals: Temp Pulse Resp BP Pulse Ox 97.8 F 79 20 128/63 H 97 11/01/18 17:20 11/01/18 17:20 11/01/18 17:20 11/01/18 17:20 11/01/18 17:20 Course - Vital Signs Vital signs: Temp Pulse Resp BP Pulse Ox 97.8 F 79 20 128/63 H 97 11/01/18 17:20 11/01/18 17:20 11/01/18 17:20 11/01/18 17:20 11/01/18 17:20 Doctor's Discharge - Discharge Referrals: JEANNETTE CARRASQUILLO MD [Primary Care Provider] - Follow up as needed
[2018-11-01] MEDS ORDERED: LIDOCAINE 5% (700 MG) TRANSDERMAL ADH..PATCH TP ONE (22:24)
--- NOTE | 2018-11-01 22:31 | ER Document Report ---
ED General - General Chief Complaint: Arm Pain Stated Complaint: LEG/ARM PAIN Time Seen by Provider: 11/01/18 19:45 Notes: Patient is an 83-year old female who presents complaining of 2 weeks of right shoulder pain. In triage the patient was also complaining of chronic right leg pain although states that this is her visit today. The patient describes the right shoulder is having a throbbing aching, constant discomfort that has been ongoing since she had a flu vaccine applied to the area and believe it may have gone into her joint space. She states the pain was immediate upon application of the vaccine has been ongoing since that time. Nothing improves or worsens the pain. She has not yet followed up with her primary doctor orthopedic surgery regarding this issue. Nothing is new or different regarding her symptoms today that resulted in a repeat visit to the emergency department. She denies any chest pain, shortness of breath, nausea or vomiting. TRAVEL OUTSIDE OF THE [place] IN LAST 30 DAYS: No - Related Data Allergies/Adverse Reactions: codeine [Codeine] Allergy (Mild, Verified 12/04/16 04:13) unknown aspirin [Aspirin] Adverse Reaction (Verified 03/21/18 06:43) Past Medical History - General Information source: Patient - Social History Smoking Status: Never Smoker Frequency of alcohol use: None Drug Abuse: None Lives with: Family Family History: Reviewed & Not Pertinent Patient has suicidal ideation: No Patient has homicidal ideation: No - Past Medical History Cardiac Medical History: Reports: Hx Atrial Fibrillation, Hx Heart Attack - 2yrs ago?, Hx Hypercholesterolemia, Hx Hypertension - MEDICATION Denies: Hx Coronary Artery Disease Pulmonary Medical History: Reports: Hx Bronchitis Denies: Hx Asthma, Hx COPD, Hx Pneumonia Neurological Medical History: Reports: Hx Cerebrovascular Accident - 2yrs ago ?. Denies: Hx Seizures Endocrine Medical History: Reports: Hx Diabetes Mellitus Type 2 Renal/ Medical History: Denies: Hx Peritoneal Dialysis GI Medical History: Denies: Hx Gastroesophageal Reflux Disease, Hx Hepatitis, Hx Hiatal Hernia, Hx Ulcer Musculoskeletal Medical History: Denies Hx Arthritis Psychiatric Medical History: Reports: Hx Depression Infectious Medical History: Denies: Hx Hepatitis Past Surgical History: Reports: Hx Hysterectomy, Hx Tonsillectomy. Denies: Hx Mastectomy, Hx Open Heart Surgery, Hx Pacemaker - Immunizations Hx Diphtheria, Pertussis, Tetanus Vaccination: Yes Hx Pneumococcal Vaccination: 10/22/13 Review of Systems - Review of Systems Notes: Constitutional: Negative for fever. HENT: Negative for sore throat. Eyes: Negative for visual changes. Cardiovascular: Negative for chest pain. Respiratory: Negative for shortness of breath. Gastrointestinal: Negative for abdominal pain, vomiting or diarrhea. Genitourinary: Negative for dysuria. Musculoskeletal: Positive for right shoulder pain Skin: Negative for rash. Neurological: Negative for headaches, weakness or numbness. 10 point ROS negative except as marked above and in HPI. Physical Exam - Vital signs Vitals: Temp Pulse Resp BP Pulse Ox 97.8 F 79 20 128/63 H 97 11/01/18 17:20 11/01/18 17:20 11/01/18 17:20 11/01/18 17:20 11/01/18 17:20 Interpretation: Normal Notes: PHYSICAL EXAMINATION: GENERAL: Well-appearing, well-nourished and in no acute distress. HEAD: Atraumatic, normocephalic. EYES: Pupils equal round and reactive to light, extraocular movements intact, sclera anicteric, conjunctiva are normal. ENT: nares patent, oropharynx clear without exudates. Moist mucous membranes. NECK: Normal range of motion, supple without lymphadenopathy LUNGS: Breath sounds clear to auscultation bilaterally and equal. No wheezes rales or rhonchi. HEART: Regular rate and rhythm without murmurs ABDOMEN: Soft, nontender, normoactive bowel sounds. No guarding, no rebound. No masses appreciated. EXTREMITIES: Normal range of motion although with mild pain on abduction of the right shoulder, no pitting or edema. No cyanosis. NEUROLOGICAL: No focal neurological deficits. Moves all extremities spontaneously and on command. PSYCH: Normal mood, normal affect. SKIN: Warm, Dry, normal turgor, no rashes or lesions noted. Course - Re-evaluation Re-evalutation: 11/02/18 03:47 Patient presents with 2 weeks pain after having a flu vaccine that appears to potentially inadvertently been placed into her right shoulder joint. The patient's pain is unchanged today, no reason for repeat visit other than the pain does persist. The patient is otherwise extremely well in appearance. No swelling or erythema to the joint. Range of motion is present although painful particular with abduction. I have advised the patient that she may have an arthritis related to installation of a vaccine into the joint space as the marker where the vaccine was placed that is still present on the skin does appear to align directly with where would be appropriate for a joint injection. The patient's history is also very clear that the pain started immediately after the injection was applied and has not resolved since that time. I have advised her to follow-up with orthopedic surgery for consideration of a therapeutic joint injection. In the interim we have started on topical Voltaren gel and lidocaine. No indication for repeat imaging today as a shoulder x-ray was done within the last 1 week and noted to be normal. No indication for other labs. At this time will discharge with return precautions and follow-up recommendations. Verbal discharge instructions given a the bedside and opportunity for questions given. Medication warnings reviewed. Patient is in agreement with this plan and has verbalized understanding of return precautions and the need for primary care follow-up in the next 24-72 hours. - Vital Signs Vital signs: Temp Pulse Resp BP Pulse Ox 98 F 68 17 145/85 H 100 11/01/18 22:52 11/01/18 22:52 11/01/18 22:52 11/01/18 22:52 11/01/18 22:52 Discharge - Discharge Clinical Impression: Right shoulder pain Qualifiers: Chronicity: chronic Qualified Code(s): M25.511 - Pain in right shoulder Condition: Good Disposition: HOME, SELF-CARE Additional Instructions: Your right shoulder pain may be related to a joint injection that was done. I would strongly advised to follow-up with orthopedic surgery for consideration of a joint injection with steroid and numbing medication which should hopefully reverse the joint irritation. In the interim please use the Voltaren gel as prescribed. You may also use topical lidocaine that can be purchased directly over the counter. Return for worsening of your pain, fever, weakness, numbness or any other symptoms that are worrisome to you. Prescriptions: Diclofenac Sodium [Voltaren] 100 gm TP TID PRN #100 gel..gm. PRN Reason: Referrals: JEANNETTE CARRASQUILLO MD [Primary Care Provider] - Follow up as needed
[2018-11-01 22:56] VITALS: BP 145/85
== END 2018-11-01 23:05 | disposition home or self-care (01) ==
LOC: ER 17:12
DX: M25.511 Pain in right shoulder (principal); M79.604 Pain in right leg; G89.29 Other chronic pain; I25.2 Old myocardial infarction; I10 Essential (primary) hypertension; Z79.899 Other long term (current) drug therapy; E11.9 Type 2 diabetes mellitus without complications
CPT/HCPCS: 99283

== ENCOUNTER 2018-11-08 17:45 | Emergency (ER) | payer MEDICARE ==
--- NOTE | 2018-11-08 18:18 | RADIOLOGY REPORT (SQ) ---
EXAM DESCRIPTION: CT HEAD WITHOUT COMPLETED DATE/TIME: 11/08/2018 6:02 pm REASON FOR STUDY: stroke COMPARISON: 04/21/2013 TECHNIQUE: Axial images acquired through the brain without intravenous contrast. Images reviewed wi th bone, brain and subdural windows. Additional sagittal and coronal reconstructions were generated. Images stored on PACS. All CT scanners at this facility use dose modulation, iterative reconstruction, and/or weight based d osing when appropriate to reduce radiation dose to as low as reasonably achievable (ALARA). [facility]: Dose Right [facility]: CareDose [facility]: Dose Right [facility]: Teradose 4D [facility]: [employer] RADIATION DOSE: CT Rad equipment meets quality standard of care and radiation dose reduction techniq ues were employed. CTDIvol: 55.2 mGy. DLP: 1139 mGy-cm. mGy. LIMITATIONS: None. FINDINGS: VENTRICLES: Normal size and contour. CEREBRUM: No masses. No hemorrhage. No midline shift. No evidence for acute infarction. Redemonstr ated right RN [facility] territory encephalomalacia. CEREBELLUM: No masses. No hemorrhage. No alteration of density. No evidence for acute infarction. Redemonstrated left cerebellar hemispheric encephalomalacia. EXTRAAXIAL SPACES: No fluid collections. No masses. ORBITS AND GLOBE: No intra- or extraconal masses. Normal contour of globe without masses. CALVARIUM: No fracture. PARANASAL SINUSES: No fluid or mucosal thickening. SOFT TISSUES: No mass or hematoma. OTHER: No other significant finding. IMPRESSION: 1. No CT evidence of acute stroke or hemorrhage. 2. Redemonstrated right RN [facility] territory and left cerebellar hemispheric encephalomalacia. EVIDENCE OF ACUTE STROKE: NO. Findings reported to Dr. Hooper, ER, 1811 hours, 11/08/2018. COMMENT: Quality ID # [id number]: Final reports with documentation of one or more dose reduction techniques (e.g., Automated exposure control, adjustment of the mA and/or kV according to patient size, use of iterative reconstruction technique) TECHNICAL DOCUMENTATION: JOB ID: [id number] [employer]- All Rights Reserved Reading location - IP/workstation name: [email or web address]
[2018-11-08 18:27] LABS: ABSOLUTE BASOPHILS # (AUTO) 0.1 10^3/uL (0.0-0.2); ABSOLUTE EOSINOPHILS # (AUTO) 0.1 10^3/uL (0.0-0.6); ABSOLUTE LYMPHOCYTES (AUTO) 1.8 10^3/uL (0.5-4.7); ABSOLUTE MONOCYTES (AUTO) 0.5 10^3/uL (0.1-1.4); ABSOLUTE NEUT (AUTO) 5.8 10^3/uL (1.7-8.2); BASOPHILS % (AUTO) 0.8 % (0-2); EOSINOPHILS % (AUTO) 1.7 % (0-6); HEMATOCRIT 35.6 % (36.0-47.0); HEMOGLOBIN 11.8 g/dL (12.0-15.5); LYMPHOCYTES % (AUTO) 21.8 % (13-45); MEAN CORPUSCULAR HEMOGLOBIN 26.6 pg (27.0-33.4); MEAN CORPUSCULAR HGB CONC 33.1 g/dL (32.0-36.0); MEAN CORPUSCULAR VOLUME 80 fl (80-97); MONOCYTES % (AUTO) 6.2 % (3-13); PLATELET COUNT 246 10^3/uL (150-450); RED BLOOD COUNT 4.44 10^6/uL (3.72-5.28); SEGMENTED NEUTROPHILS % (AUTO) 69.5 % (42-78); TOTAL CELLS COUNTED % (AUTO) 100 %; WHITE BLOOD COUNT 8.4 10^3/uL (4.0-10.5)
[2018-11-08 18:29] LABS: INTERNATIONAL RATION (INR) 0.93; PARTIAL THROMBOPLASTIN TIME 33.7 SEC (23.5-35.8); PROTHROMBIN TIME 12.9 SEC (11.4-15.4)
[2018-11-08] MEDS ORDERED: NALOXONE HCL INJ/PF 0.4 MG/1 ML SDV ONE (18:37)
[2018-11-08 18:45] LABS: ALANINE AMINOTRANSFERASE 23 U/L (9-52); ALBUMIN 4.3 g/dL (3.5-5.0); ALKALINE PHOSPHATASE 156 U/L (38-126); ANION GAP 7 (5-19); ASPARTATE AMINO TRANSFERASE 24 U/L (14-36); BILIRUBIN,DIRECT 0.3 mg/dL (0.0-0.4); BILIRUBIN,TOTAL 0.4 mg/dL (0.2-1.3); BLOOD UREA NITROGEN 20 mg/dL (7-20); CALCIUM 9.3 mg/dL (8.4-10.2); CARBON DIOXIDE 32 mmol/L (22-30); CHLORIDE 96 mmol/L (98-107); CREATINE KINASE 84 U/L (30-135); GLUCOSE 115 mg/dL (75-110); POTASSIUM 3.8 mmol/L (3.6-5.0); SODIUM 134.9 mmol/L (137-145); TOTAL PROTEIN 7.1 g/dL (6.3-8.2)
--- NOTE | 2018-11-08 18:45 | RADIOLOGY REPORT (SQ) ---
EXAM DESCRIPTION: CHEST SINGLE VIEW COMPLETED DATE/TIME: 11/08/2018 6:32 pm REASON FOR STUDY: stroke COMPARISON: 11/01/2015 EXAM PARAMETERS: NUMBER OF VIEWS: One view. TECHNIQUE: Single frontal radiographic view of the chest acquired. RADIATION DOSE: NA LIMITATIONS: None. FINDINGS: LUNGS AND PLEURA: No opacities, masses or pneumothorax. No pleural effusion. MEDIASTINUM AND HILAR STRUCTURES: No masses. Contour normal. HEART AND VASCULAR STRUCTURES: Cardiomegaly with left chest multi lead pacer BONES: No acute findings. HARDWARE: None in the chest. OTHER: No other significant finding. IMPRESSION: Cardiomegaly without acute abnormality of the lungs in AP projection. No focal airspace opacity. TECHNICAL DOCUMENTATION: JOB ID: [id number] [employer]- All Rights Reserved Reading location - IP/workstation name: [email or web address]
--- NOTE | 2018-11-08 18:53 | ER Document Report ---
ED NIH Stroke Scale - NIH Stroke Scale *: 1. NIH scale should be completed with appropriate accompanying assessment tools. *: 2. The NIH should reflect what the patient is capable of doing and should not be coached by the clinician. 1a. Level of Consciousness: 0=Alert;keenly responsive -: 1=Drowsy -: 2=Obtunded -: 3=Coma/unresponsive or reflex to noxious stimuli. 1a. Responses: 2 1b. Orientation Questions: a. What month is it? -: b. How old are you? -: 0=Answers both questions correctly. -: 1=Answers one question correctly or patient is intubated or has orotracheal trauma. -: 2=Answers neither question correctly. 1b. Responses: 2 1c. Response to commands: a. Open and close eyes? -: b. Project Developer and release hand? -: Credit is given despite weakness. Demonstration of task is permitted. Substitute command if hands cannot be used. -: 0=Performs both tasks correctly -: 1=Performs one task correctly -: 2=Performs neither task correctly 1c. Responses: 2 2. Gaze: Establish eye contact and instruct patient to "Follow my finger" -: 0=Normal -: 1=Partial gaze palsy. Gaze is abnormal in one or both eyes, but where forced deviation or total gaze paresis is not present. -: 2=Forced deviation or total gaze paresis. 2. Responses: 2 3. Visual Gómez: Sees fingers in all four quadrants. -: 0=No visual loss. -: 1=Partial hemianopsia. -: 2=Complete hemianopsia. -: 3=Bilateral hemianopsia (including Cortical blindness) 3. Responses: 3 4. Facial Movement: Instruct patient to: -: a. Show me your teeth -: b. Raise your eyebrows -: c. Close your eyes -: d. Smile -: 0=Normal symmetrical movement -: 1=Minor paralysis (flattened nasolabial fold, asymmetry on smiling). -: 2=Partial paralysis (total or near total paralysis of lower face). -: 3=Complete paralysis of upper and lower face 4. Responses: 0 5. Motor functions (left arm): Alternate sides and extend each arm with palms down (90 degrees if sitting or 45 degrees for supine). -: 0=No drift;limb holds for full 10 seconds. -: 1=Drift; limb holds but drifts down before full 10 seconds, but does not hit bed. -: 2=Some effort against gravity; limb cannot get to or maintain position. -: 3=No effort against gravity; limb falls. -: 4=No movement. -: UN=Amputation, joint fusion, explain in comments. 5. Responses (left arm): 4 5. Motor Functions (right arm): Alternate sides and extend each arm with palms down (90 degrees if sitting or 45 degrees for supine). -: 0=No drift;limb holds for full 10 seconds. -: 1=Drift; limb holds but drifts down before full 10 seconds, but does not hit bed. -: 2=Some effort against gravity; limb cannot get to or maintain position. -: 3=No effort against gravity; limb falls. -: 4=No movement. -: UN=Amputation, joint fusion, explain in comments. 5. Responses (right arm): 4 6. Motor Functions (left leg): With patient lying supine, alternate sides and extend each leg (30 degrees always while supine). -: 0=No drift, leg holds position for full 5 seconds -: 1=Drift; leg falls before full 5 seconds but does not hit bed. -: 2=Some effort against gravity, leg falls to bed but some effort against gravity. -: 3=No effort against gravity, leg falls to bed immediately. -: 4=No movement. -: UN=Amputation, joint fusion; explain in comments. 6. Responses (left leg): 4 6. Motor Functions (right leg): With patient lying supine, alternate sides and extend each leg (30 degrees always while supine). -: 0=No drift, leg holds position for full 5 seconds -: 1=Drift; leg falls before full 5 seconds but does not hit bed. -: 2=Some effort against gravity, leg falls to bed but some effort against gravity. -: 3=No effort against gravity, leg falls to bed immediately. -: 4=No movement. -: UN=Amputation, joint fusion; explain in comments. 6. Responses (right leg): 4 7. Limb Ataxia: With eyes open instruct patient to: -: a. "Touch your finger to your nose". -: b. "Touch your heel to your brewer" -: 0=Absent -: 1=Present in one limb. -: 2=Present in two limbs. -: UN=Amputation or joint fusion; explain in comments. 7. Responses: UN 8. Sensory: Test sensation using pinprick or noxious stimuli. Test as many body parts as possible. -: 0=Normal;no sensory loss -: 1=Mile to moderate sensory loss (patient feels pin prick but is less sharp on affected side). -: 2=Severe or total sensory loss. 8. Responses: 1 9. Best Language: Instruct patient to: -: a. "Describe what you see in this picture." -: b. "Name the items in this picture." -: c. "Read these sentences." -: 0=No aphasia, normal -: 1=Mild to moderate aphasia. -: 2=Severe aphasia -: 3=Mute, global aphasia, no usable speech or auditory comprehension. 9. Responses: 3 10. Articulation, Dysarthia: Instruct patient to: -: "Read these words" or "Repeat these words" -: 0=Normal -: 1=Mild to moderate; patient may slur some words but can be understood without difficulty. -: 2=Severe; patients speech so slurred as to be unintelligible in the absence of dysphasia. -: UN=Intubated or other physical barrier, explain in comments. 10. Responses: 2 11. Extinction or inattention: 0=No abnormality -: 1= Visual, tactile, auditory, spatial, or personal inattention or extinction to bilateral simulation in one or the sensory modalities. -: 2=Profound alek-inattention or alek-inattention to more than one modality; does not recognize own hand. 11. Responses: 2 Total Score: 35
[2018-11-08 18:55] LABS: CREATINE KINASE MB 2.59 ng/mL (<4.55); TROPONIN I 0.027 ng/mL
--- NOTE | 2018-11-08 19:02 | ER Document Report ---
ED General - General Chief Complaint: S/S of Possible Stroke Stated Complaint: UNRESPONSIVE Time Seen by Provider: 11/08/18 18:27 Cannot obtain history due to: Unstable vital signs, Altered mental status Notes: Patient is an 83-year-old female with a past medical history of diabetes, hypertension, hyperlipidemia, presents confused after apparently abruptly becoming weak and losing consciousness while at her doctor's office earlier today. No other history can be obtained as the patient is obtunded and significant at the bedside does not provide adequate meaningful history. TRAVEL OUTSIDE OF THE [place] IN LAST 30 DAYS: No - Related Data Allergies/Adverse Reactions: codeine [Codeine] Allergy (Mild, Verified 12/04/16 04:13) unknown aspirin [Aspirin] Adverse Reaction (Verified 03/21/18 06:43) Past Medical History - General Information source: Relative - Social History Smoking Status: Never Smoker Chew tobacco use (# tins/day): No Frequency of alcohol use: None Drug Abuse: None Lives with: Family Family History: Reviewed & Not Pertinent Patient has suicidal ideation: No Patient has homicidal ideation: No - Past Medical History Cardiac Medical History: Reports: Hx Atrial Fibrillation, Hx Heart Attack - 2yrs ago?, Hx Hypercholesterolemia, Hx Hypertension - MEDICATION Denies: Hx Coronary Artery Disease Pulmonary Medical History: Reports: Hx Bronchitis Denies: Hx Asthma, Hx COPD, Hx Pneumonia Neurological Medical History: Reports: Hx Cerebrovascular Accident - 2yrs ago ?. Denies: Hx Seizures Endocrine Medical History: Reports: Hx Diabetes Mellitus Type 2 Renal/ Medical History: Denies: Hx Peritoneal Dialysis GI Medical History: Denies: Hx Gastroesophageal Reflux Disease, Hx Hepatitis, Hx Hiatal Hernia, Hx Ulcer Musculoskeletal Medical History: Denies Hx Arthritis Psychiatric Medical History: Reports: Hx Depression Infectious Medical History: Denies: Hx Hepatitis Past Surgical History: Reports: Hx Hysterectomy, Hx Tonsillectomy. Denies: Hx Mastectomy, Hx Open Heart Surgery, Hx Pacemaker - Immunizations Hx Diphtheria, Pertussis, Tetanus Vaccination: Yes Hx Pneumococcal Vaccination: 10/22/13 Review of Systems - Review of Systems -: Yes ROS unobtainable due to patient's medical condition Physical Exam - Vital signs Vitals: BP Pulse Ox 183/107 H 96 11/08/18 18:04 11/08/18 18:04 Interpretation: Hypertensive Notes: PHYSICAL EXAMINATION: GENERAL: Obtunded, unresponsive to verbal stimuli HEAD: Atraumatic, normocephalic. EYES: Pupils pinpoint but equal. Reactive to light sluggishly bilaterally. ENT: nares patent, oropharynx clear without exudates. Moist mucous membranes. NECK: supple without lymphadenopathy LUNGS: Breath sounds clear to auscultation bilaterally and equal. No wheezes rales or rhonchi. HEART: Regular rate and rhythm without murmurs ABDOMEN: Soft, no masses EXTREMITIES: no pitting or edema. No cyanosis. NEUROLOGICAL: Patient does not respond to commands in any extremity. Does not open eyes spontaneously. No verbal response. She does not have any obvious nasolabial fold flattening. The patient does spontaneously move her left upper and left lower extremity. On noxious stimulus testing she has purposeful movement of the left upper extremity to move my hand away from her left shoulder. She also pulls away aggressively with noxious stimuli to the left lower extremity. She has no response other than moaning with noxious to the right upper extremity. She does withdrawal to pain in the right lower extremity although notably slower than the left lower extremity. PSYCH: Unable to assess SKIN: Warm, Dry, normal turgor, no rashes or lesions noted. Course - Re-evaluation Re-evalutation: 11/08/18 18:53 Patient documentation is delayed as I been at the patient's bedside continuously and directly on the phone with [facility] neurology as soon is seeing her at approximately 1820 the. In summary the patient presents obtunded, is protecting her airway but does not speak or follow any commands. She does not have any obvious nasolabial fold flattening. The patient does spontaneously move her left upper and left lower extremity. On noxious stimulus testing she has purposeful movement of the left upper extremity to move my hand away from her left shoulder. She also pulls away aggressively with noxious stimuli to the left lower extremity. She has no response other than moaning with noxious to the right upper extremity. She does withdrawal to pain in the right lower extremity although notably slower than the left lower extremity. Stat CT of the head does not demonstrate any evidence of acute intracranial bleed or acute stroke although does demonstrate a chronic area of encephalomalacia in the left cerebellum. The patient is apparently on warfarin although her INR is complete ly normal and it appears that she is not taking this medication actively. The patient's blood pressures were initially into the 110s diastolic range although these did spontaneously normalize. 11/08/18 19:02 I have spoken to the stroke attending at [facility] Dr. Noonan. We have reviewed all pertinent data and Dr. Noonan does recommend that the patient received TPA as she is in the window. He is aware of the area of chronic encephalomalacia, the patient's elevated NIH scale and her advanced age and states that these do not exclude her from receiving TPA at this time. I have tried to contact the patient's power of poultry husbandry teacher her son Siva Mclean with a number provided by the significant other at the bedside who is the patient's fianc but does not have any legal power of poultry husbandry teacher. I did leave a voicemail and asked him to urgently call me back as I would like to formally have a risks and benefits conversation regarding TPA administration at this time point. However if the son is unable to contact me back, I will go forward with recommended treatment at this time as the patient will exit the window shortly if I am unable to proceed. We will also be proceeding with a CTA of the head and neck. [facility] has accepted this patient, is already sending an air care helicopter. 11/08/18 19:35 Documentation is again delayed as I been at this patient's bedside continuously since the last note has been documented. We did successfully take the patient's airway due to her depressed mental status and need for air transport. This was for anticipated course. This was completed without any difficulty using succinylcholine and etomidate. Thereafter the patient was somewhat difficult to keep sedated despite using escalated doses of propofol with propofol pushes. This also resulted in the patient's blood pressure coming up to an acceptable ranges into 220 systolic over 130s diastolic. TPA was not infused at this point. Patient was given escalated doses of propofol until sedation was achieved. A nicardipine infusion was started at 5 mg/h. Approximate 5 minutes ago patient's blood pressure was noted to be in the 150s systolic over 80s diastolic. At that point the TPA infusion was initiated. This remains within the 4.5-hour window currently at approximately 2.5 hours from symptom onset. The helicopter is approximately 10-15 minutes out. The patient's son has arrived at the bedside. I have explained to him at length the measurements that we have undertaken. I did have the opportunity to speak to the patient's son as well on the phone prior to him presenting and he did consent to the above procedures of intubation and TPA infusion as well as transfer for consideration of interventional measures. The CTA of her head and neck does show a large proximal left MCA clot. Will continue to remain at the patient's bedside until the patient has successfully arrived to [facility]. 11/08/18 19:40 I have called and spoken to the ED physician at [facility]. The patient will be going to the emergency department. I provided them an update regarding the patient CTA results, her initial need for a nicardipine infusion as well as increasing doses of propofol. 11/08/18 19:54 I have been at this patient's bedside continuously since the previous documentation was completed. In summary the patient's blood pressure did become moderately hypotensive to 90s on 50s despite termination of a nicardipine infusion and termination of the propofol infusion. The patient off propofol did begin gagging on the tube. 2 mg of midazolam were administered. A liter bolus was initiated. Patient's blood pressure is up trending currently 103 on 73. Air care has arrived, at the bedside actively working on getting the patient packaged to be transported. I have updated all family at the bedside. 11/09/18 03:53 - Vital Signs Vital signs: Temp Pulse Resp BP Pulse Ox 63 14 121/71 99 11/08/18 19:58 11/08/18 19:58 11/08/18 19:58 11/08/18 19:58 - Laboratory Result Diagrams: 11/08/18 18:07 11/08/18 18:07 Laboratory results interpreted by me: 11/08/18 11/08/18 18:07 18:07 Hgb 11.8 L Hct 35.6 L MCH 26.6 L RDW 15.0 H Sodium 134.9 L Chloride 96 L Carbon Dioxide 32 H Glucose 115 H Alkaline Phosphatase 156 H - Diagnostic Test Radiology reviewed: Image reviewed, Reports reviewed Radiology results interpreted by me: 11/09/18 03:51 CT head: No acute intracranial bleed or mass Chest x-ray: ET tube in appropriate position, no acute infiltrates - EKG Interpretation by Me Additional EKG results interpreted by me: 11/09/18 03:51 Days rhythm, A. fib underlying. Rate 70. No ST elevations or depressions. Procedures - Intubation Orotracheal Airway evaluation: Normal anatomy, Loose teeth Mallampati Classification: Class 2 Medications: Etomidate, Succinylcholine Intubation method: Orotracheal Blade type: Mirella Blade size: 4 Equipment used: Glidescope ETT size: 7.5 ETT secured at: Lips ETT secured at (cm): 23 Breath Sounds after Intubation: Equal End tidal CO2 confirmed: Yes Ventilator settings: SIMV Tidal volume: 400 FiO2: 50 Respirations: 16 PEEP: 5 Post Intubation Xray: Yes Intubation Complications: No complications Critical Care Note - Critical Care Note Total time excluding time spent on procedures (mins): 85 Comments: Critical care time spent obtaining history from patient or surrogate, discussions with consultants, development of treatment plan with patient or surrogate, evaluation of patient's response to treatment, examination of patient, ordering and performing treatments and interventions, ordering and review of laboratory studies, re-evaluation of patient's condition, ordering and review of radiographic studies and review of old charts Discharge - Discharge Clinical Impression: Acute ischemic left MCA stroke, Right hemiparesis Altered mental status Qualifiers: Altered mental status type: coma Coma depth: [place] coma 3-8 Coma timing: at arrival to emergency department Qualified Code(s): R40.2432 - [place] coma scale score 3-8, at arrival to emergency department Condition: Critical Disposition: [facility] Referrals: JEANNETTE CARRASQUILLO MD [Primary Care Provider] - Follow up as needed
[2018-11-08] MEDS ORDERED: ALTEPLASE INJ 100 MG VIAL ONE (19:08)
[2018-11-08] MEDS ORDERED: KETAMINE HCL INJ 500 MG/10 ML VIAL ONE (19:12)
[2018-11-08] MEDS ORDERED: ETOMIDATE INJ/PF 20 MG/10 ML SDV IV ONE (19:12)
[2018-11-08] MEDS ORDERED: PROPOFOL 1,000 MG/100 ML INFUS..BTL IV ONE (19:13)
[2018-11-08] MEDS ORDERED: NICARDIPINE HCL RTU, ISO-OS 20 MG/200 ML RTUINJ IV ONE (19:24)
--- NOTE | 2018-11-08 19:25 | RADIOLOGY REPORT (SQ) ---
EXAM DESCRIPTION: CTA HEAD; CTA NECK COMPLETED DATE/TIME: 11/08/2018 7:07 pm REASON FOR STUDY: POSSIBLE STROKE COMPARISON: None. TECHNIQUE: Post IV contrast scanning, thin section axial imaging through the neck and brain to evalu ate the arterial structures. Source and MIP images are saved and reviewed on PACS. Advanced 3D imaging as volume-rendering, MIPs, SSD performed? yes All CT scanners at this facility use dose modulation, iterative reconstruction, and/or weight based d osing when appropriate to reduce radiation dose to as low as reasonably achievable (ALARA). [facility]: Dose Right [facility]: CareDose [facility]: Dose Right [facility]: Teradose 4D [facility]: [employer] CONTRAST TYPE AND DOSE: contrast/concentration: Isovue 350.00 mg/ml; Total Contrast Delivered: 70.0 ml; Total Saline Delivered: 75.0 ml RENAL FUNCTION: GFR > 60. LIMITATIONS: None. FINDINGS: CERVICAL VESSELS: Calcific atherosclerosis of the aortic arch and origins of the bilatera l internal carotid arteries without high-grade stenosis. Very tortuous but patent bilateral vertebra l arteries. [place]: Calcific atherosclerosis of the cavernous and supraclinoid portions of the bilatera l internal carotid arteries without high-grade stenosis. There is occlusion of the distal left inter nal carotid artery at the carotid terminus, with long segment occlusion of the M1 segment of the left MCA and occlusion of the A1 segment of the TYRELL. There is faint distal opacification of small MCA br anch vessels, likely by watershed collateral circulation. The left posterior communicating artery is patent. The anterior, middle, posterior cerebral arteries are otherwise patent. No evidence of ane urysm or focal stenosis. POSTERIOR CIRCULATION: The distal vertebral arteries are patent as is the basilar artery. No aneurysm . BRAIN: No gross enhancing lesions as visualized. The superior cerebral hemispheres are not included in the field of view. BONES: Intact as visualized. SINUSES: No fluid or mucosal thickening. OTHER: No other significant finding. IMPRESSION: 1. 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 The left posterior communicating artery is patent. 2. Calcific atherosclerosis of the aortic arch, bilateral internal carotid artery origins, and dinh nous and supraclinoid portions of the internal carotid arteries without high-grade stenosis. Findings reported to Dr. Hooper, ER, by telephone, 1914 hours, 11/08/2018. TECHNICAL DOCUMENTATION: JOB ID: [id number] Quality ID # [id number]: Final reports with documentation of one or more dose reduction techniques (e.g., Au tomated exposure control, adjustment of the mA and/or kV according to patient size, use of iterative reconstruction technique) 2010 [employer]- All Rights Reserved Reading location - IP/workstation name: [email or web address]
[2018-11-08] MEDS ORDERED: MIDAZOLAM 2 MG/2 ML INJ ONE (19:50)
[2018-11-08 20:02] VITALS: BP 121/71
--- NOTE | 2018-11-08 20:08 | RADIOLOGY REPORT (SQ) ---
XR CHEST 1 VIEW HISTORY: Post intubation COMPARISON: Radiographs from earlier the same day.. FINDINGS: There is interval placement of endotracheal tube with the tip approximately 1.5 cm from the richa. Recommend retraction 2 cm. No discernible pneumothorax. Lungs are clear without pleural effusions. Again seen is prominence of the bilateral perihilar regions. No acute bony findings are seen. The left chest wall pacemaker is stable. IMPRESSION: ET tube tip 1.5 cm from the richa. Recommend retraction 2 cm. No pneumothorax.
--- NOTE | 2018-11-08 20:57 | EKG REPORT ---
SEVERITY:- ABNORMAL ECG - AFIB/FLUT AND V-PACED COMPLEXES BORDERLINE PROLONGED QT INTERVAL : Confirmed by: Rajni Liu 08-Nov-2018 20:56:37
[2018-11-08] MEDS ORDERED: SUCCINYLCHOLINE CHLORIDE INJ 200 MG/10 ML VIAL ONE (21:21)
== END 2018-11-08 20:06 | disposition short-term general hospital (02) ==
LOC: ER 17:45
DX: I63.89 Other cerebral infarction (principal); G81.91 Hemiplegia, unspecified affecting right dominant side; R40.2432 Glasgow coma scale score 3-8, at arrival to emergency department; I48.91 Unspecified atrial fibrillation; Z79.02 Long term (current) use of antithrombotics/antiplatelets; E78.00 Pure hypercholesterolemia, unspecified; I10 Essential (primary) hypertension; E11.9 Type 2 diabetes mellitus without complications; Z90.710 Acquired absence of both cervix and uterus; Z88.6 Allergy status to analgesic agent
CPT/HCPCS: 93005; 99291; 99292; 51702; 96375; 96365; 96367; 36415; 82553; 82962; 82550; 85025; 85610; 85730; 80053; 84484; 71045; 70450; 70496; 70498; 93010; 31500; J2310; J0330